=== PATIENT | female | born 1965 | race Caucasian/White ===

== ENCOUNTER 2018-05-10 19:14 | Inpatient (IN) | payer MEDICARE ==
--- NOTE | 2018-05-10 21:01 | RAD ---
PORTABLE AP CHEST X-RAY 05/10/18 HISTORY: Chest pain. Right lower extremity swelling and redness that started one week ago. COMPARISON: 11/08/14. FINDINGS: The tunneled right internal jugular vein hemodialysis catheter as well as the left internal jugular v ein central venous catheter has been removed. The cardiac silhouette is magnified by projection. Pulm onary vasculature is within normal limits. The lungs are clear aside from minimal atelectasis at each lung base. There has been no other interval change from prior exam. IMPRESSION: No acute cardiopulmonary process. POS: [facility]
[2018-05-10 21:07] LABS: ALT (SGPT) 7 U/L (8-55); AST (SGOT) 10 U/L (5-34); Albumin 3.5 g/dL (3.5-5.0); Alkaline Phosphatase 115 U/L (40-150); Anion Gap 22 mmol/L (10-20); BUN (Urea Nitrogen) 73 mg/dL (9.8-20.1); Bilirubin, Total 0.4 mg/dL (0.2-1.2); Calc. Creatinine Clearance 0 mL/min (70-130); Calcium 9.2 mg/dL (7.8-10.44); Carbon Dioxide 24 mmol/L (22-29); Chloride 93 mmol/L (98-107); Estimated GFR-MDRD 5; Globulin 3.9 g/dL (2.4-3.5); Glucose 352 mg/dL (70-105); Potassium 3.7 mmol/L (3.5-5.1); Protein, Total 7.4 g/dL (6.0-8.3); Sodium 135 mmol/L (136-145)
[2018-05-10 21:15] LABS: Band 5 % (5-11); Eosinophils 2 % (0-10); Hemoglobin 10.2 g/dL (12.0-16.0); Lymphocytes 30 % (21-51); MDiff Complete? YES; Mean Corpuscular HGB CONC 34.9 g/dL (32.0-36.0); Mean Corpuscular Hemoglobin 32.7 pg (27.0-31.0); Mean Corpuscular Volume 93.5 fL (78.0-98.0); Mean Platelet Volume 6.5 fL (7.4-10.4); Metamyelocyte 1 % (0-0); Monocytes 3 % (0-10); Neutrophil 59 % (42-75); PLT Morphology Comment Appears Adequate; Platelet Count 338 thou/uL (130-400); RBC Distribution Width 14.4 % (11.5-14.5); Red Blood Cell (RBC) Count 3.14 mill/uL (4.20-5.40); White Blood Cell (WBC) Count 10.9 thou/uL (4.8-10.8)
[2018-05-10 21:32] LABS: Troponin I 3.305 ng/mL (< 0.028)
[2018-05-10] MEDS ORDERED: Piperacillin/Tazobactam 3.375 GM VIAL ONE (22:22)
[2018-05-10] MEDS ORDERED: HYDROcodone/Acetaminophen 5/325 mg Tablet ONE (22:38)
[2018-05-10] MEDS ORDERED: Heparin 25,000 units/D5W 500 ML IV SCH (22:45)
[2018-05-10] MEDS ORDERED: Piperacillin/Tazobactam 3.375 GM in Sodium Chloride 0.9% 100 ML IVPB SCH (22:45)
[2018-05-10] MEDS ORDERED: Heparin 10,000 UNITS/ 10 ML VIAL SLOW IVP SCH (22:45)
[2018-05-10 23:45] LABS: INR-International Normal Ratio 1.1; PTT 34.7 SEC (22.9-36.1); Prothrombin Time 14.2 SEC (12.0-14.7)
[2018-05-11] MEDS ORDERED: traMADol HCl 50 MG TAB PO PRN (00:05)
[2018-05-11] MEDS ORDERED: Zolpidem Tartrate 5 MG TAB PO PRN (00:05)
[2018-05-11] MEDS ORDERED: diphenhydrAMINE 25 MG CAP PO PRN (00:05)
[2018-05-11] MEDS ORDERED: Acetaminophen 325 MG TAB PO PRN (00:12)
[2018-05-11] MEDS ORDERED: Ondansetron HCl/PF 4 MG/2 ML Vial IVP PRN (00:12)
[2018-05-11 01:20] LABS: Troponin I 3.224 ng/mL (< 0.028)
[2018-05-11] MEDS ORDERED: Vancomycin HCl 1.25 GM in Sodium Chloride 0.9% 250 ML 250 ML IVPB PRN (01:57)
[2018-05-11] MEDS ORDERED: Vancomycin HCl 1 GM in Premix Bag 1 BAG IVPB PRN (01:57)
[2018-05-11] MEDS ORDERED: Vancomycin HCl 500 MG in Sodium Chloride 0.9% 100 ML IVPB PRN (02:01)
[2018-05-11] MEDS ORDERED: Vancomycin HCl 750 MG in Sodium Chloride 0.9% 250 ML 250 ML IVPB PRN (02:01)
[2018-05-11] MEDS ORDERED: Vancomycin Sliding Scale 1 EACH FS PRN (02:04)
[2018-05-11] MEDS ORDERED: HOLD VANCOMYCIN FOR LEVEL >20 FS PRN (02:05)
[2018-05-11] MEDS ORDERED: Vancomycin HCl 1.25 GM in Sodium Chloride 0.9% 250 ML 250 ML IVPB SCH (03:00)
[2018-05-11 04:26] LABS: #Eosinphils 0.3 thou/uL (0.0-0.7); #Lymphocytes 2.7 thou/uL (1.20-3.40); #Monocytes 0.5 thou/uL (0.11-0.59); #Neutrophils 7.7 thou/uL (1.40-6.50); %Basophils 0.2 % (0.0-1.0); %Monocytes 4.5 % (0.0-10.0); %Neutrophils 68.3 % (42.0-75.0); Hemoglobin 9.6 g/dL (12.0-16.0); Mean Corpuscular HGB CONC 34.7 g/dL (32.0-36.0); Mean Corpuscular Hemoglobin 32.7 pg (27.0-31.0); Mean Corpuscular Volume 94.2 fL (78.0-98.0); Mean Platelet Volume 5.9 fL (7.4-10.4); Platelet Count 320 thou/uL (130-400); RBC Distribution Width 14.4 % (11.5-14.5); Red Blood Cell (RBC) Count 2.94 mill/uL (4.20-5.40); White Blood Cell (WBC) Count 11.2 thou/uL (4.8-10.8)
[2018-05-11 04:43] LABS: Anion Gap 22 mmol/L (10-20); BUN (Urea Nitrogen) 75 mg/dL (9.8-20.1); Calc. Creatinine Clearance 0 mL/min (70-130); Calcium 9.2 mg/dL (7.8-10.44); Carbon Dioxide 24 mmol/L (22-29); Chloride 97 mmol/L (98-107); Estimated GFR-MDRD 5; Glucose 209 mg/dL (70-105); Potassium 3.6 mmol/L (3.5-5.1); Sodium 139 mmol/L (136-145)
[2018-05-11 04:56] LABS: Troponin I 2.656 ng/mL (< 0.028)
--- NOTE | 2018-05-11 06:17 | CON ---
DATE OF CONSULTATION: 05/10/2018 REASON FOR CONSULTATION: Stage 6 chronic kidney disease and edema and maintenance hemodialysis. HISTORY OF PRESENT ILLNESS: The patient is a 53-year-old female who presented to the hospital with r ight lower extremity swelling, redness. The patient was evaluated for DVT and went to dialysis and w as unable to access the AV fistula. The patient denies any headache, numbness, tingling or weakness. Denies any nausea, vomiting or chest pain. PAST MEDICAL HISTORY: Significant for hypertension, end-stage renal disease, anemia, secondary hyper parathyroidism, history of left below knee amputation, history of AV fistula, history of tunneled hira lysis catheter, history of chronic pain, history of depression. SOCIAL HISTORY: Noncontributory. FAMILY HISTORY: Negative ESRD. HOME MEDICATIONS: List reviewed. HOSPITAL MEDICATIONS: Reviewed. REVIEW OF SYSTEMS: Fifteen point review of systems was performed and negative except positives noted above. GENERAL: Weakness- HEAD: Headache- NECK: No swelling or lumps. NOSE: No epistaxis or discharge. EYES: No diplopia or pain. RESPIRATORY: Dyspnea- CARDIOVASCULAR: Chest pain- GASTROINTESTINAL: Nausea- /BLOCKER METAL BASE: Hematuria- MUSCULOSKELETAL: No joint pain. NEUROPSYCHIATIC SYSTEMS: No suicidal ideation. No ideation. SKIN: Denies any rash or ulcer. CONSTITUTIONAL: No fever or chills. PHYSICAL EXAMINATION: GENERAL: Patient is awake, alert. VITAL SIGNS: Pulse 70, breathing at 16, blood pressure was 130/70. OBJECTIVE: See above. Awake, alert, in no acute distress. GENERAL APPEARANCE AND MENTAL STATUS: Fair. HEAD/NECK: Normocephalic. Atraumatic. EYES: EOMI. No deformity. EARS: Clear. No ulcers. NOSE: Intact. No lesions. MOUTH: Clear. No discharge. THROAT: Clear. No exudate. LUNGS: Clear. No crackles. CARDIAC: S1, S2. No rub. ABDOMEN: Benign. BS+. GENITALIA/RECTUM: Tellez absent. BACK/EXTREMITIES: Lower extremities have edema and redness. NEUROLOGICAL: Alert and motor intact. SKIN: Rash- Bruise- LYMPHATICS: Edema- Ulcer- LABORATORY: Potassium 3.7. ASSESSMENT AND RECOMMENDATIONS: 1. Stage 6 chronic kidney disease. No indication for dialysis. We will recommend a fistulogram and a catheter if needed. 2. Anemia, stable. 3. Medications based on glomerular filtration rate are appropriate. 4. Cellulitis management per primary team.
--- NOTE | 2018-05-11 07:59 | HP ---
CODE STATUS: FULL CODE. PRIMARY CARE PHYSICIAN: Dr. Krystal Rider. TIME OF EVALUATION: 10:45 p.m. CHIEF COMPLAINT: Right leg pain, swelling, and AV fistula, now working for dialysis. HISTORY OF PRESENT ILLNESS: This is a 53-year-old female patient. Patient has past medical history of type 1 diabetes, end-stage renal disease on hemodialysis. Follow up with Dr. Moctezuma, the patient ca me to the hospital after having right leg swelling. These symptoms had started for the past week, th ey started insidiously and has been getting gradually worse. The patient now has associated pain jayme t is severe in the right lower extremity with significant increase in size, associated with redness, inability to bear weight in that extremity due to pain. No clear triggers, no alleviating factors. As known, the patient has a frontal chronic ulcer that is being followed by Podiatry; however, this a ciara looks clean and not overly infected. Patient also had an obstruction of the right AV fistula, th erefore she has been unable to get hemodialysis, Dr. Moctezuma has been consulted and he has recommended t he patient to come to the hospital. Patient will have preview of the AV fistula in the morning and p ossible Perm-A-Cath placement even able to use AV fistula. As of now, patient also was found to have a troponin of 3.3, that was associated with an episode of s hortness of breath earlier in the morning, that stopped by itself. No chest pain reported. Patient also stated that she had a cardiac catheterization 3 years ago, and she was told that she had coronar y lesions that have good collateral by that time. REVIEW OF SYSTEMS: Constitutional: Patient has no fever, no chills, generalized weakness. Respirat ory: No cough, sputum production, shortness of breath. Cardiovascular: No chest pain, palpitations . She reported an episode of shortness of breath earlier in the morning. Gastrointestinal: No naus ea, vomiting, diarrhea, or abdominal pain. MANAGER CARDIOVASCULAR: No dizziness, headache, or feeling lightheaded. Ge nitourinary: No burning on urination. Extremities: The patient has left [id number] amputation, also right lower extremity redness, with tenderness, swelling, decreased range of motion and inabili ty to bear weight due to pain. All other systems were reviewed and negative except for the findings mentioned above. PAST MEDICAL HISTORY: The patient had history of diabetes type 1, hyperlipidemia, hypertension, end- stage renal disease on hemodialysis. PAST SURGICAL HISTORY: Eye surgery, left hand surgery, amputation of [id number] left lower extre mity ____ surgery. PSYCHIATRIC HISTORY: No previous psychiatric history. SOCIAL HISTORY: No smoking history. No alcohol, no drugs. FAMILY HISTORY: Cancer in both paternal and maternal history. DRUG ALLERGIES: GABAPENTIN. REPORTED MEDICATIONS: Metoprolol, omeprazole, simvastatin, amitriptyline, torsemide, Novolin R, and NovoLog. PHYSICAL EXAMINATION: VITAL SIGNS: On presentation, blood pressure 143/77 with heart rate 108, respiratory rate was 20, te mperature 99.6, oxygen saturation 96% on room air. GENERAL APPEARANCE: Patient is alert, oriented, in mild distress due to pain. HEENT: Eyes: Normal conjunctivae, moist oral mucosa. Anicteric. NECK: No JVD. RESPIRATORY: Bilateral air entry. No rales, no wheezing. Symmetric expansion. CARDIOVASCULAR: Normal rate, regular rhythm, occasional tachycardic. No murmur, no gallop. Right l ower extremity edema. ABDOMEN: Soft, normal bowel sounds. MUSCULOSKELETAL: Baseline range of motion and strength. No tenderness. SKIN: Warm and intact. No pallor, no rash except for right lower extremity that showing swelling, r edness, tenderness, and decreased range of motion due to pain. NEUROLOGIC: Baseline sensory. No evidence of any focal weakness. Baseline speech. Cranial nerve s eems to be intact. PSYCHIATRIC: The patient is in a good mood. No anxiety, oriented, optimal judgment. LABORATORY DATA: White count 10.9, hemoglobin 10.2, platelet count 338. PT 14.2, INR 1.1, PTT 34.7. Chemistry: Sodium 135, potassium 3.7, chloride 93, carbon dioxide 24, anion gap 22, BUN 73, creati nine 7.8, GFR 5, glucose 352. Lactic acid 1.6, calcium 9.2, total bilirubin 0.4, AST 10, ALT 7, elif line phosphatase 115, troponin 3.3. Repeat troponin 3.2. Beta natriuretic peptide 189. Serum total protein 7.4, albumin 3.5, globulin 3.9. IMAGING: Chest x-ray was done and reviewed. The patient has no acute cardiopulmonary process. The EKG was discussed with performing physician from ER and reviewed. Patient had sinus tachycardia at t he rate of 104. No evidence of any acute ischemic event, occasional PVCs, Q-wave in inferior anterio r leads. ASSESSMENT AND PLAN: The patient will be placed in the hospital for the following medical problems. 1. Right lower extremity cellulitis, patient has redness, increased in size, swelling. Patient has been started on antibiotics, reconcile as per culture results. Possible earlier stage of sepsis. Tavo kessler has respiratory rate of 20, heart rate 108. Possible sources right lower extremity cellulitis, treatment as above. We are limiting with fluids, as patient is a dialysis patient. 2. Uncontrolled hypertension presenting with systolic blood pressure 143. We will reconcile home me ds, we will adjust treatment as needed. Patient will get hemodialysis likely in the morning. 3. Non-ST elevation myocardial infarction with troponin 3.3, although she is a renal patient, tropon in is in the high side. We will place the patient on heparin drip, we will consult Cardiology in the morning. With further recommendations, patient stated that she got cardiac catheterization 3 years ago and she was told that she had lesion with collateral circulation, so no treatment was done at jayme t time. We will follow Cardiology recommendations. Reconcile home medications. 4. Uncontrolled diabetes with blood sugar 352 on presentation. Hyperglycemia, we will reconcile annelise e medications, ____ for optimal control. 5. Hyponatremia. Sodium 135, this is mild, we will monitor, we will trend levels, we will adjust tr eatment as needed. 6. End-stage renal disease with AV graft obstruction, Dr. Moctezuma is on the case, we will follow recomm endations. Patient will need hemodialysis access. 7. Deep venous thrombosis prophylaxis. We will start her on heparin drip.
[2018-05-11] MEDS ORDERED: Sodium Chloride 0.9% 10 ML ONE (08:41)
[2018-05-11] MEDS ORDERED: Lisinopril 5 MG TAB PO SCH (09:00)
[2018-05-11] MEDS ORDERED: Carvedilol 25 MG TAB PO SCH (09:00)
[2018-05-11] MEDS ORDERED: Amlodipine 10 MG TAB PO SCH (09:00)
[2018-05-11] MEDS ORDERED: Piperacillin/Tazobactam 2.25 GM in Sodium Chloride 0.9% 100 ML IVPB SCH (09:00)
[2018-05-11] MEDS ORDERED: Enoxaparin Sodium 40 MG/0.4 ML SYRINGE SC SCH (09:00)
[2018-05-11] MEDS: Aspirin 325 mg Enteric Coated Tablet PO SCH (09:05)
--- NOTE | 2018-05-11 10:32 | PRG ---
DATE OF SERVICE: 05/11/2018 SUBJECTIVE: This is a 53-year-old female being seen for end-stage renal disease. The patient denies any nausea, vomiting or chest pain. Leg swelling is improving. PHYSICAL EXAMINATION: GENERAL: Patient is awake, alert. VITAL SIGNS: Afebrile, pulse 75, breathing 16, blood pressure 124/64. OBJECTIVE: See above. Awake, alert, in no acute distress. GENERAL APPEARANCE AND MENTAL STATUS: Fair. HEAD/NECK: Normocephalic. Atraumatic. EYES: EOMI. No deformity. EARS: Clear. No ulcers. NOSE: Intact. No lesions. MOUTH: Clear. No discharge. THROAT: Clear. No exudate. LUNGS: Clear. No crackles. CARDIAC: S1, S2. No rub. ABDOMEN: Benign. BS+. GENITALIA/RECTUM: Tellez absent. BACK/EXTREMITIES: Edema 0+ Ulcer- NEUROLOGICAL: Alert and motor intact. SKIN: Rash- Bruise- LYMPHATICS: Edema- Ulcer- LABORATORY: Hemoglobin 9.6, potassium 3.6. ASSESSMENT AND RECOMMENDATIONS: 1. Stage 6 chronic kidney disease. We will plan dialysis after new access. 2. Anemia, stable. 3. Hyperkalemia, stable. 4. Failed access. The patient will be seen by Dr. Briscoe.
[2018-05-11] MEDS ORDERED: Acetaminophen 500 MG TAB PO PRN (11:18)
--- NOTE | 2018-05-11 11:42 | CON ---
DATE OF CONSULTATION: 05/11/2018 HISTORY OF PRESENT ILLNESS: Zakia Hedrick is a 53-year-old female, diabetic, morbidly obese, 5 feet tall, 190 pounds, 37 BMI, insulin-dependent diabetic at home on insulin, metoprolol 50 mg a day, omeprazole 40 mg a day, Requip 2 mg b.i.d., amitriptyline 20 mg at bedtime, Zocor 10 mg at bedtime, Benadryl p.r.n., reports to the hospital and with a history of 11/08/2014 me placing a right IJ cuffe d tunnel dialysis catheter to initiate dialysis and subsequent 11/13/2014 placement of a right arm fi stula, perforating branch antecubital vein to proximal radial artery outflow through primary basilic vein as the cephalic veins seemed to be smaller and seemed to occlude approximately 8 centimeters pro ximally in the upper arm. She subsequently returned to the operating room on 12/11/2014 for a basili c vein transposition fistula. Her cephalic was inadequate with runoff via collaterals and her basili c vein was transposed using the stump off the cephalic vein to form a fistula. She has been dialyzin g utilizing that although she reports having had about 15 to 20 interventions often at [facility] and [facility], other times more recently 2-3 days ago in [place] [employer] [facility] the [facility]. I did call the [facility] and talked to staff there who informed me that they performed an interven tion with a TWISTING [employer]PARTMENT END FINDER of the mid basilic vein transposition fistula upper arm where she had a stenosis of t he stent and had arterial inflow stenosis and they dilated these and removed clot and she had good re sults; however, it was clotted when she reported for dialysis. The patient subsequently developed sw elling in her ankle. She has a contralateral below knee amputation. She presented to [place] and a venous ultrasound was negative for DVT. She went home and was told that although she had swelling, t here were no blood clots. She does have chronic venous insufficiency, had swelling, presented for fu rther evaluation. She denied having any chest pain or pressure. The fistula was thrombosed. Incide ntally, even though the patient was asymptomatic from a cardiac standpoint without chest pain, withou t chest pressure, without dyspnea a troponin was checked and was 3.3. The patient reported to the in ternist that she had a cardiac catheterization 3 years ago, but she informs me that she underwent a t ransplant evaluation at [facility] 2 to 2-1/2 years ago, had a cardiac stress test that was no rmal and did not have a catheterization. She told me that she was told she may have had a past cardi ac event, but she was asymptomatic and unaware of any past cardiac problems. SOCIAL HISTORY: The patient lives alone, has transportation problems. PAST MEDICAL HISTORY: Diabetes mellitus type 2, obesity, metabolic syndrome, hyperlipidemia, hyperte nsion, end-stage renal disease on hemodialysis. PAST SURGICAL HISTORY: Eye surgery, left hand surgery, below the knee amputation left leg, right upp er arm fistula with a month later transposition fistula formed, hemodialysis catheter was placed. Mu ltiple interventions performed. The patient was referred to [facility] from the dialysis unit where she had a peritoneal dialysis cathete r placed that did not work. They did some kind of open revision and still it would not work and then she had it removed. She does not recall whether she had a laparoscopy. She does have a scar in her midline umbilical area indicative of expiration for placement of her PD catheter. I do not see any laparoscopic scars. TOBACCO: None. ALCOHOL: None. MEDICATIONS: As listed above. ALLERGIES: GABAPENTIN. The patient dialyzes Wednesday, Wednesday, and Wednesday at [facility] in [place]. She is followed by Dr. Moctezuma. PHYSICAL EXAMINATION: VITAL SIGNS: Height 5 foot tall, 190 pounds, 37 BMI, 99.5, 100, 124/64. LUNGS: Clear to auscultation, no wheezing. CARDIAC: Regular rate and rhythm, no murmur or gallop, no chest pain. ABDOMEN: Obese, soft, nontender. EXTREMITIES: [id number] amputation left. Chronic venous stasis right, mild cellulitis right butch t and ankle, chronic venous stasis changes with hyperpigmentation and stasis dermatitis. LABORATORY: White count 11, hemoglobin 9.6, sodium 139, potassium 3.6, BUN 75, creatinine 7.82. GFR 5 on admission, her troponin was 3.2, this morning 2.6. ASSESSMENT AND PLAN: 1. End-stage renal disease with nonfunctional fistula right arm with multiple interventions and sten ts. I do not think this fistula is salvageable. She has IVs in her left distal forearm and mid fore arm. I would recommend to stop the heparin. The patient does not need heparin as far as her clots in her right arm fistula. She does not need heparin for chronic venous stasis disease, right leg. I have spoken with Dr. Vizcarra and he believes that her troponin elevation is due to her renal disease and he will evaluate her. At this point, we will place hemodialysis catheter and a central line. We will removed the left arm IVs. We will avoid IV access, blood draws in the left arm. We will obtai n ultrasound vein mapping of the left arm for use at a later date. We will plan next week inpatient and outpatient in the next week or two laparoscopic peritoneal dialysis catheter placement, possible left arm fistula or graft pending ability to place a peritoneal dialysis catheter. We will plan this possibly as an outpatient or she may need overnight hospitalization due to transportation problems. 2. Elevated troponins. History of negative cardiac stress test, possible catheterization 2-3 years ago. It is hard from her history to know what was done at [facility]. Dr. Vizcarra will see he r and address her cardiac status considering her elevated troponins, lack of dialysis in the last few days. I have also asked him to assess her for safe general anesthetic next week for a laparoscopic peritoneal dialysis catheter placement, left arm fistula. 3. Diabetes mellitus. 4. Hypertension. 5. Chronic venous stasis with mild cellulitis right leg which could be treated with oral antibiotics . 6. Clot in the right arm fistula. She does not need heparin for this. 7. End-stage renal disease on maintenance dialysis Wednesday, Wednesday, and Wednesday at [facility]. She is followed by Dr. Moctezuma.
[2018-05-11] MEDS ORDERED: Bupivacaine HCl 0.5%/Epinephrine 1:200,000/PF 30 ml Vial ONE (12:40)
[2018-05-11] MEDS ORDERED: Sodium Chloride 0.9% 30 ML ONE (12:40)
[2018-05-11] MEDS ORDERED: Heparin 5,000 UNITS/ML VIAL ONE (12:40)
[2018-05-11] MEDS ORDERED: Protamine Sulfate 50 MG/5 ML VIAL ONE (12:40)
[2018-05-11] MEDS ORDERED: Heparin 10,000 UNITS/1 ML VIAL ONE ×2 (12:40→13:42)
[2018-05-11] MEDS ORDERED: Lidocaine 2% 10 ML INJ ONE (12:40)
[2018-05-11] MEDS ORDERED: Midazolam HCl 2 mg/2 ml Vial ONE (12:52)
[2018-05-11] MEDS ORDERED: Fentanyl 100 MCG/2 ML VIAL ONE (12:52)
[2018-05-11] MEDS ORDERED: ISOVUE-370 76%-LOCM 1 ML ONE (12:54)
[2018-05-11] MEDS ORDERED: Heparin 10,000 UNITS/ 10 ML VIAL ONE (13:45)
[2018-05-11] MEDS ORDERED: PROPOFOL 200 MG/20 ML VIAL ONE (13:45)
[2018-05-11] MEDS ORDERED: Lidocaine 1% PF 5 ML VIAL ONE (13:45)
[2018-05-11] MEDS ORDERED: PHENYLEPHRINE-NS 100 MCG/ML 10 ML SYRINGE ONE (13:45)
--- NOTE | 2018-05-11 14:33 | RAD ---
SINGLE VIEW CHEST: Date: 05/11/18 COMPARISON: 05/10/18. HISTORY: Central line placement. FINDINGS: Single view of the chest shows normal sized cardiomediastinal silhouette. There is a left IJ dialysis catheter is seen with its tip at the superior vena cava. A right subclavian central venous catheter is seen with its tip at the superior vena cava. There is no evidence of consolidation, mass, or pleur al effusion. No pneumothorax is seen. IMPRESSION: Catheter placement as above without evidence of complication. POS: [facility]
--- NOTE | 2018-05-11 16:19 | OP ---
DATE OF OPERATION: 05/11/2018 PREOPERATIVE DIAGNOSES: Exhausted right upper extremity burns paiute vein fistula access with thrombosed r ight basilic vein transposition fistula, status post multiple interventions and stent placement. Pre viously failed peritoneal dialysis catheter placed in Restorationism in open fashion. POSTOPERATIVE DIAGNOSES: Exhausted right upper extremity burns paiute vein fistula access with thrombosed right basilic vein transposition fistula, status post multiple interventions and stent placement prev iously failed peritoneal dialysis catheter placed in Restorationism in open fashion, occluded right internal jugular vein not visualized on ultrasound from previous hemodialysis catheter. PROCEDURES PERFORMED: Right subclavian vein triple-lumen catheter, left internal jugular cuffed tunn el dialysis catheter, ultrasound fluoroscopy used. SURGEON: John Briscoe M.D. ANESTHESIA: TIVA, Local 0.5% Marcaine with epinephrine 30 mL mixed with Xylocaine 10 mL. PROCEDURE IN DETAIL: Patient taken to the operating room where under intravenous sedation, neck and chest prepared with ChloraPrep, draped in routine fashion. Local anesthetic infiltrated into the ski n and subcutaneous tissue about the operative site. 0.5% Marcaine with epinephrine, 30 mL, mixed wit h 2% Xylocaine mixture used. Ultrasound used noting absence of visualized right internal jugular vei n, probably secondary to previous hemodialysis catheter access. Left internal jugular vein cannulate d with trocar catheter and J wire threaded, trocar catheter removed. Right subclavian vein cannulate d with trocar catheters and central and J-wire threaded. Trocar catheter removed. On the left side, a stab incision made over the left chest. Using the tunneling device, precurved angiodynamics, cuff ed tunnel hemodialysis catheter tunneled between the two incisions, placing the fabric cuff beneath t he skin exit site. Catheter secured with 2 interrupted sutures of 3-0 nylon. Biopatch sterile dress ing applied. Smaller medium size dilators placed over the J-wire into the internal jugular vein left and removed. Dilator and pull-away sheath placed over the J-wire into the superior vena cava under fluoroscopic visualization and dilator removed. Catheter placed through a pull-away sheath. Pull-aw ay sheath removed. Fluoroscopic catheter noted to be in good position. Platysma approximated with 4 -0 Monocryl, skin with subdermal 4-0 Monocryl. DermaGlue and sterile dressings applied. Seldinger technique used to place right subclavian vein central line, securing it to her sutures of 3 -0 nylon. Biopatch sterile dressing applied. A central line aspirated blood, flushed with saline so lution and heparinized saline solution with 100 units heparin per mL A hemodialysis catheter aspirat ed of blood, flushed with saline solution and heparinized saline solution 1000 units heparin per mL i ndicated volume the port. Patient tolerated the procedure well.
[2018-05-11] MEDS: Sevelamer Carbonate 800 MG TAB PO SCH ×2 (17:10→17:20)
--- NOTE | 2018-05-11 19:10 | CON ---
DATE OF CONSULTATION: 05/11/2018 REASON FOR CONSULTATION: Non-STEMI. HISTORY OF PRESENT ILLNESS: Mrs. Hedrick is a very pleasant 53-year-old white female who comes to the hospital for leg pain. She had been noticing increased swelling of her right leg with increased pain as well as inability to bear weight on it due to the pain. She has an ulcer on the front part o f the foot that is being treated by Podiatry, but it does not really look infected, it is on the back of the thigh, close to the knee where she feels a small mass that is painful, a little erythematous, so she decided to come in for this. She was diagnosed with cellulitis and started on antibiotics. She also was found to have an obstruction of her right AV fistula and has been unable to get hemodial ysis for some days now. During her admission, troponins were drawn and they were elevated, so Cardio logy being consulted for this. On my evaluation, Ms. Hedrick denies any chest pain, no tightness o r pressure, not really short of breath. She does have a left nzujn-ong-avma amputation. She has had a heart catheterization from her report about 3 years ago when she was being evaluated for transplan t. She was told that there was an area where she probably had a heart attack in the past, but it was occluded, but the area was being filled from small collaterals made by the body. She is unable to g krystle me any more detail other than that. PAST MEDICAL HISTORY: 1. Type 1 diabetes. 2. Hyperlipidemia. 3. Hypertension. 4. End-stage renal disease, on hemodialysis. PAST SURGICAL HISTORY: 1. Eye surgery. 2. Left hand surgery. 3. [id number]-atf-uoxf amputation of the left leg. 4. Tunneled catheter placed today for dialysis. SOCIAL HISTORY: No alcohol, tobacco or drugs. FAMILY HISTORY: Noncontributory. OUTPATIENT MEDICATIONS: 1. Novolin N. 2. Torsemide 10 mg a day. 3. Metoprolol succinate 50 mg daily. 4. Omeprazole 40 mg a day. 5. Requip 2 mg b.i.d. 6. Amitriptyline 200 mg at bedtime. 7. Zocor 10 mg at bedtime. 8. Benadryl 25 mg p.r.n. ALLERGIES: GABAPENTIN, GENTAMICIN, and PLASTIC TAPE. REVIEW OF SYSTEMS: A 12-point review of systems was done and is all negative unless stated in histor y of present illness. PHYSICAL EXAMINATION: VITAL SIGNS: Temperature 99.5, pulse 100, respiration rate 16, satting 100% on room air, blood press ure 124/64. GENERAL: Awake, alert, oriented x3, in no distress. HEENT: Normocephalic, atraumatic. NECK: Supple. LUNGS: Clear. CARDIOVASCULAR: S1, S2, no S3, S4. There is a grade 3/6 systolic murmur in right upper sternal bord er. ABDOMEN: Soft, positive bowel sounds. EXTREMITIES: Edema on the right lower extremity. There is a small palpable mass right above the lef t knee and the thigh, which is painful to palpation, but minimally erythematous. The leg does not se em erythematous enough for me to think she has cellulitis. Distal pulses are reduced. SKIN: Warm and dry. LABORATORY WORK: Reviewed. White count of 10.2, up to 11.2; hemoglobin 10.2; platelet count 338. C oags were reviewed. Chemistries were reviewed. Troponin initially was 3.3, second draw was 3.2, thi rd draw was 2.6. Creatinine is 7.8, GFR of less than 5. BNP was 589. EKG was reviewed, no ischemic changes. Chest x-ray was reviewed. ASSESSMENT AND PLAN: 1. Non-ST elevation myocardial infarction. 2. Most likely peripheral vascular disease. 3. Possible right lower extremity cellulitis, I am more concerned about this being an ischemic event to her leg. No DVT on recent ultrasound of the lower extremity, this could be an arterial issue. PLAN: 1. Plan on getting a CT of the leg to make sure that this is not an arterial issue. 2. I do think her elevated troponins are related to an acute coronary event. She most likely has so me level of coronary artery disease per report from recent catheterization 3 years ago, but she is no t having any symptoms. We will get an echocardiogram. I do not think she needs anticoagulation at t his time and her clinical scenario is not that of an NM. More than likely, if this is elevated tropo isaiah is related to just her end-stage renal disease and possible infection. 3. She is scheduled to have a fistula revision next week, so she will need some ischemic evaluation as well. We will plan on doing a stress test in the morning. Thank you for letting us participate in the care of your patient. We will follow.
[2018-05-11] MEDS ORDERED: hydrALAZINE 20 MG/ML VIAL SLOW IVP PRN (19:20)
[2018-05-11] MEDS ORDERED: Amitriptyline HCl 25 MG TAB PO SCH (21:00)
[2018-05-11] MEDS ORDERED: Carvedilol 6.25 MG TAB PO SCH (21:00)
--- NOTE | 2018-05-11 21:35 | PDOC.PN ---
- Subjective Encounter Start Date: 05/11/18 Encounter Start Time: 18:00 Patient seen and examined for NSTEMI. No new complaints. No CP/SOB. No overnight events - Objective MAR Reviewed: Yes Vital Signs & Weight: Vital Signs (12 hours) Temp Pulse Resp BP 05/11/18 16:00 98 F 82 88/58 L 05/11/18 12:00 98.6 F 92 16 116/50 L Weight Weight 190 lb 11.2 oz I&O: 05/10/18 05/11/18 05/12/18 06:59 06:59 06:59 Intake Total 300 409 Balance 300 409 Result Diagrams: 05/12/18 05:10 05/12/18 05:10 Additional Labs: Accuchecks 05/11/18 05/11/18 21:21 19:12 POC Glucose 248 H 215 H Radiology Reviewed by me: Yes (No infiltrate) EKG Reviewed by me: Yes (Tele SR) Phys Exam - Physical Examination Constitutional: NAD Neck: no JVD Respiratory: no wheezing, no rales, no rhonchi Symmetrical, No accessory muscle use Cardiovascular: RRR, no rub No heaves/pulsations Gastrointestinal: soft, non-tender, positive bowel sounds Musculoskeletal: edema present RLE MELO wraps Neurological: non-focal, moves all 4 limbs Psychiatric: normal affect, A&O x 3 Dx/Plan - Plan continue antibiotics, DVT proph w/SCDs IMPRESSION: 1. NSTEMI 2. RLE Cellulitis ? ischemia 3. ESRD on dialysis with dialysis malfunction 4. DM2 5. HTN 6. RLS/ Chronic Anemia due to renal disease / Obesity 37.6 / GERD PLAN: Cont ASA Heparin drip dced per Cardiology Cont low dose Metoprolol/Lisinopril Start 25 units NPH BID with sliding scale Cont PPI Await Echo Stress test in AM per Cardio New dialysis catheter placed New central line placed for blood draws AM labs Review of Systems - Review of Systems Respiratory: negative: Cough, Dry, Shortness of Breath, Hemoptysis, SOB with Excertion, Pleuritic Pain, Sputum, Wheezing Cardiovascular: negative: chest pain, palpitations, orthopnea, paroxysmal nocturnal dyspnea, edema, light headedness, other - Medications/Allergies Allergies/Adverse Reactions: Allergies Allergy/AdvReac Type Severity Reaction Status Date / Time gabapentin AdvReac Unknown Verified 02/06/15 11:25 gentamicin [Gentamicin] AdvReac Unknown Verified 02/06/15 11:25 plastic tape Allergy Uncoded 12/10/14 15:18 Medications: Current Medications Acetaminophen (Tylenol) 1,000 mg PO Q6H PRN PRN Reason: Moderate to Severe Pain (6-10) Hydrocodone Bitart/Acetaminophen ([place] 5/325) 1 tab PO Q6H PRN PRN Reason: Moderate Pain (4-6) Amitriptyline HCl (Elavil) 20 mg PO HS [facility] Aspirin (Ecotrin) 325 mg PO DAILY [facility] Last Admin: 05/11/18 09:05 Dose: 325 mg Carvedilol (Coreg) 6.25 mg PO BID [facility] Diphenhydramine HCl (Benadryl) 25 mg PO Q6H PRN PRN Reason: Itching Hydralazine HCl (Apresoline) 10 mg SLOW IVP Q4H PRN PRN Reason: SBP Greater Than 180 Vancomycin HCl 1.25 gm/ Sodium (Chloride) 250 mls @ 166.667 mls/hr IVPB .AT DIALYSIS PRN PRN Reason: IF VANC LEVEL <= 5.0 Vancomycin HCl 1 gm/ Device 200 mls @ 200 mls/hr IVPB .AT DIALYSIS PRN PRN Reason: IF VANC LEVEL >5 AND <=10 Vancomycin HCl 750 mg/ Sodium (Chloride) 250 mls @ 250 mls/hr IVPB .AT DIALYSIS PRN PRN Reason: IF VANC LEVEL >10 AND <= 15 Vancomycin HCl 500 mg/ Sodium (Chloride) 100 mls @ 100 mls/hr IVPB .AT DIALYSIS PRN PRN Reason: IF VANC LEVEL >15 AND <=20 Insulin Human NPH (Humulin N) 25 unit SC BID [facility] Lisinopril (Zestril) 5 mg PO DAILY [facility] Miscellaneous Medication (Vancomycin Sliding Scale) 0 each FS PRN PRN PRN Reason: VANC SLIDING SCALE Miscellaneous Medication (Pharmacy To Dose) 1 each IVPB ONE PRN PRN Reason: Pharmacy to dose Stop: 06/10/18 18:21 Hold Vancomycin For (Level >20) 0 each FS .AT DIALYSIS PRN PRN Reason: HOLD VANCOMYCIN IF LEVEL >20 Ondansetron HCl (Zofran) 4 mg IVP Q6H PRN PRN Reason: Nausea/Vomiting Pantoprazole Sodium (Protonix) 40 mg PO DAILY [facility] Last Admin: 05/11/18 09:05 Dose: 40 mg Pantoprazole Sodium (Protonix) 40 mg PO DAILY [facility] Pneumococcal 13-Valent Conj Vacc (Prevnar) 0.5 ml IM .ONCE ONE Stop: 05/12/18 09:01 Ropinirole HCl (Requip) 0.5 mg PO BID [facility] Sevelamer Carbonate (Renvela) 800 mg PO TID-WM [facility] Last Admin: 05/11/18 17:20 Dose: 800 mg Simvastatin (Zocor) 20 mg PO HS [facility] Tramadol HCl (Ultram) 50 mg PO BIDPRN PRN PRN Reason: Pain Zolpidem Tartrate (Ambien) 10 mg PO HSPRN PRN PRN Reason: Insomnia
[2018-05-11] MEDS: Simvastatin 20 MG TAB PO SCH (22:24)
[2018-05-11] MEDS: rOPINIRole HCl 0.5 MG TAB PO SCH (22:24)
[2018-05-11] MEDS: Amitriptyline HCl 10 MG TAB PO SCH (22:24)
[2018-05-11] MEDS: HYDROcodone/Acetaminophen 5/325 mg Tablet PO PRN (22:25)
[2018-05-11] MEDS: NPH, Human Insulin Isophane 300 UNIT/3 ML VIAL SC SCH (22:27)
--- NOTE | 2018-05-11 22:53 | CT ---
CT OF THE RIGHT LEG WITH CONTRAST: 05/11/18 COMPARISON: None. HISTORY: Evaluate for infection. Patient has vascular disease and right leg pain. Right thigh infection. TECHNIQUE: Multiple contiguous axial images were obtained in a CT of the right leg with contrast. Sagittal and c oronal reformats were performed. FINDINGS: There is diffuse subcutaneous edema throughout the right leg. This edema is in the superficial soft t issues. There is relative sparring of the knee compartments. No foci of air are seen within the soft tissues of the right leg. Dense vascular calcifications are seen in the superficial femoral artery an d popliteal artery. There is dense atherosclerotic disease in all three vessels distal to the knee. N o focal fluid collection is seen in the right leg. There are multiple varicosities in the subcutaneou s fat. No osseous abnormality is seen. IMPRESSION: Diffuse edema in the subcutaneous tissues without focal fluid collection. This could represent depend ent edema or diffuse cellulitis. POS: [facility]
[2018-05-12 05:31] LABS: Hemoglobin 8.4 g/dL (12.0-16.0); Platelet Count 297 thou/uL (130-400)
[2018-05-12 05:56] LABS: Anion Gap 20 mmol/L (10-20); BUN (Urea Nitrogen) 85 mg/dL (9.8-20.1); Calc. Creatinine Clearance 11 mL/min (70-130); Calcium 8.4 mg/dL (7.8-10.44); Carbon Dioxide 23 mmol/L (22-29); Chloride 98 mmol/L (98-107); Estimated GFR-MDRD 5; Glucose 121 mg/dL (70-105); Potassium 4.1 mmol/L (3.5-5.1); Sodium 137 mmol/L (136-145)
[2018-05-12] MEDS ORDERED: Nitroglycerin 0.4 MG TAB (25 Tab Bottle) SL PRN (06:57)
--- NOTE | 2018-05-12 08:38 | ULT ---
BILATERAL UPPER EXTREMITY VENOUS ULTRASOUND VEIN MAPPING EXAM WITH LEE SCALE AND DOPPLER COLOR FLOW AND SPECTRAL ANALYSIS: CLINICAL HISTORY: End stage renal disease, dialysis access. FINDINGS: LEFT UPPER EXTREMITY: Brachial Artery 4.5 mm Radial Artery 1.9 mm Ulnar Artery 1.8 mm Cephalic: Proximal humerus 3.4 mm Mid humerus 3.8 mm Distal 4.0 mm Elbow 5.4 mm Proximal forearm 3.4 mm Mid 2.6 mm Distal 1.4 mm Basilic: Proximal humerus 5.4 mm Mid humerus 4.8 mm Distal 4.4 mm Elbow 4.3 mm Proximal forearm 2.6 mm Mid 2.2 mm Distal 1.3 mm Note is made that there is thrombus within the basilic vein in the left upper extremity. RIGHT UPPER EXTREMITY: There is in indwelling nonfunctioning right upper extremity fistula. The venous structures beyond th e nonfunctioning fistula are not documented. Cephalad to the fistula, there is a 2.1 mm cephalic vei n and a 3.4 mm basilic vein documented. IMPRESSION: 1. Left upper extremity vein mapping as above. 2. Nonfunctioning fistula of the right upper extremity. POS: [facility]
--- NOTE | 2018-05-12 08:53 | PRG ---
DATE OF SERVICE: 05/12/2018 SUBJECTIVE: This is a 53-year-old female being seen for end-stage renal disease. Patient denies any nausea, vomiting or chest pain. PHYSICAL EXAMINATION: GENERAL: Patient is awake, alert. VITAL SIGNS: Afebrile, pulse 80, breathing 16, blood pressure 91/51. HEAD/NECK: Normocephalic. Atraumatic. EYES: EOMI. No deformity. EARS: Clear. No ulcers. NOSE: Intact. No lesions. MOUTH: Clear. No discharge. THROAT: Clear. No exudate. LUNGS: Clear. No crackles. CARDIAC: S1, S2. No rub. ABDOMEN: Benign. BS+. GENITALIA/RECTUM: Tellez absent. BACK/EXTREMITIES: Edema 0+ Ulcer- NEUROLOGICAL: Alert and motor intact. SKIN: Rash- Bruise- LYMPHATICS: Edema- Ulcer- ASSESSMENT AND RECOMMENDATIONS: 1. Stage 6 chronic kidney disease, plan hemodialysis. 2. Hypertension, stable. 3. Anemia. Continue Epogen. 4. Hypertension. Hold all blood pressure medications.
[2018-05-12] MEDS ORDERED: Heparin 10,000 UNITS/ 10 ML VIAL ONE (09:00)
[2018-05-12] MEDS ORDERED: Prevnar 13-Val Conj/PF 0.5 ML SYRINGE IM ONE (09:00)
[2018-05-12 09:37] LABS: Vancomycin, Random 21.4 ug/mL (See Comment)
[2018-05-12] MEDS: Sevelamer Carbonate 800 MG TAB PO SCH ×3 (09:37→19:28)
[2018-05-12] MEDS: Lisinopril 5 MG TAB PO SCH (09:38)
[2018-05-12] MEDS: Metoprolol Tartrate 25 MG TAB PO SCH ×2 (09:39→21:31)
[2018-05-12] MEDS: rOPINIRole HCl 0.5 MG TAB PO SCH ×2 (09:40→21:30)
[2018-05-12] MEDS: Aspirin 325 mg Enteric Coated Tablet PO SCH (09:40)
[2018-05-12] MEDS: NPH, Human Insulin Isophane 300 UNIT/3 ML VIAL SC SCH ×2 (11:12→21:35)
--- NOTE | 2018-05-12 12:05 | PDOC.CTH ---
Cardiology Progress Note - Subjective No new issues. No chest pain, tightness, pressure, SOB. - Objective Vital Signs Temp Pulse Resp BP Pulse Ox 05/12/18 09:38 80 05/12/18 08:40 98.0 F 80 16 95 05/12/18 08:28 98.0 F 80 17 91/51 L 95 05/12/18 04:39 88 14 90/51 L 96 Weight 192 lb 4.8 oz 05/11/18 05/12/18 05/13/18 06:59 06:59 06:59 Intake Total 300 709 Balance 300 709 - Physical Examination General/Neuro: alert & oriented x3, NAD Neck: no JVD present Lungs: CTA, unlabored respirations Heart: RRR Abdomen: NT/ND Extremities: + edema B (1+, left BKA) - Telemetry Telemetry Rhythm: NSR - Labs Result Diagrams: 05/12/18 05:10 05/12/18 05:10 Troponin/CKMB CK-MB (CK-2) 7.0 ng/mL (0-6.6) H* 05/10/18 20:46 Troponin I 2.656 ng/mL (< 0.028) H* 05/11/18 04:17 - Assessment/Plan 1. NSTEMI 2. LE cellulits 3. Hypotension, sepsis? 4. ESRD. 5. Possible CAD, asymptomatic currently. PLAN: - Abx per primary team. - Cellulitis improving today. - Will hold off on [facility] until cellulitis fully treated. - She may still have her surgery for peritoneal dialysis next week as she is completely asymptomatic from the cardiac perspective and has a normal LV function.
--- NOTE | 2018-05-12 13:35 | CON ---
DATE OF CONSULTATION: 05/11/2018 REASON FOR CONSULTATION: Possible cellulitis. HISTORY OF PRESENT ILLNESS: A 53-year-old patient who is known to me from prior visits and has a his tory of type 1 diabetes with end-stage renal disease on hemodialysis and progressively worsening pain in the right lower extremity. The patient had previously undergone amputation at the BKA level of t he left lower extremity for an infectious complication. There was progression of the pain associated with redness and inability to bear weight because of pain. She has a chronic ulcer at the bottom of the first MPJ skin sites which is followed by Podiatry. She denies any headaches, no change in visu al symptoms, sore throat, odynophagia, dysphagia. No neck pain or back pain. No dyspnea or chest pa in, no abdominal pain. She has some urinary output, but no genitourinary symptoms. The left BKA kashif mp is not symptomatic at this time. She had no neurological symptoms. PAST MEDICAL HISTORY: Type 1 diabetes with end-stage renal disease on hemodialysis. The patient has required placement of a catheter in the left IJ location because of a lack of function of right uppe r extremity [place] vein fistula access. 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 SOCIAL HISTORY: Never a smoker. FAMILY HISTORY: Noncontributory. REVIEW OF SYSTEMS: She also has pain in the right TMJ location for the past few days. CURRENT MEDICATIONS: The patient is receiving Tylenol, [place], Elavil, Ecotrin, Benadryl, Apresoline, insulin, Zestril, Lopressor, vancomycin, sliding scale, Requip, Zocor, Renvela. FAMILY HISTORY: Noncontributory. PHYSICAL EXAMINATION: VITAL SIGNS: T-max 99.5, blood 91/51, pulse 80, respirations 16, O2 sat 95%. SKIN: Shows area of erythema in the right leg. There is some erythema in the medial aspect of the r ight thigh. There is marked tenderness close to the right popliteal region, but no erythema in that location. There is one area of very small pinhole like type ulceration at the bottom of the right fi rst MPJ skin site. No erythema or significant callus formation is noted around this area. No lympha denopathy. HEENT: Ocular movements conjugate. Pupils are equal and reactive. Oral cavity unremarkable. NECK: Supple. LUNGS: With symmetric clear breath sounds. HEART: S1, S2 with a soft aortic murmur. Regular rate. ABDOMEN: Soft, not distended or tender. No ascites. No bladder distention. EXTREMITIES: I could not feel dorsalis pedis pulses in the right foot. She had quite a bit of tende rness on palpation of the right popliteal region, a little bit of tenderness in the right leg. She w as able to move extremities on command. NEUROLOGIC: Cognitive function appears to be intact. LABORATORY DATA: White cell count is 10.9 and 11.2, hemoglobin 10.2, MCV 94, platelets 338 with a no rmal differential and INR 1.1. Chemistry; sodium 139, creatinine 7.82. CO2 24 and the liver profile which was normal. Troponin 3.305, albumin 3.5, globulin 3.9. Microbiology with negative blood cult ures at 48 hours. RADIOLOGY STUDIES: We have an echocardiogram from 05/11/2018 with EF 50-55, some diastolic dysfuncti on. The valves with mild changes. Chest x-ray from admission with a catheter placement without evid ence of complications, no infiltrate, no pneumothorax. The patient had a lower extremity CT with con trast that showed edema, dense vascular calcifications. ASSESSMENT: 1. End-stage renal disease secondary to type 1 diabetes. 2. Peripheral vascular disease. 3. Cellulitis, right leg with lymphangeitis. 4. Chronic ulcer bottom aspect of the right first MPJ skin site. DISCUSSION: The port of entry for this infection is likely the ulcer in the right foot, peripheral v ascular disease is probably significant. I do not think she has had an arterial duplex exam yet and I would advise that to evaluate vascular supply to the extremities. She is currently on vancomycin a nd I would add Rocephin to improve streptococcal and gram negative jn coverage.
[2018-05-12] MEDS: cefTRIAXone\\ROCEPHIN 1 GM in Sodium Chloride 0.9% 100 ML IVPB SCH (13:54)
[2018-05-12] MEDS ORDERED: Polyethylene Glycol 3350 17 GM Packet PO PRN (14:46)
--- NOTE | 2018-05-12 14:50 | PDOC.PN ---
- Subjective Encounter Start Date: 05/12/18 Encounter Start Time: 10:30 Patient seen and examined for NSTEMI/Cellulitis. No new complaints. No CP/SOB or palpitations. No overnight events - Objective MAR Reviewed: Yes Vital Signs & Weight: Vital Signs (12 hours) Temp Pulse Resp BP Pulse Ox 05/12/18 09:38 80 05/12/18 08:40 98.0 F 80 16 95 05/12/18 08:28 98.0 F 80 17 91/51 L 95 05/12/18 04:39 88 14 90/51 L 96 Weight Weight 192 lb 4.8 oz I&O: 05/11/18 05/12/18 05/13/18 06:59 06:59 06:59 Intake Total 300 709 Balance 300 709 Result Diagrams: 05/12/18 05:10 05/12/18 05:10 Additional Labs: Accuchecks 05/12/18 05/11/18 05/11/18 06:03 21:21 19:12 POC Glucose 155 H 248 H 215 H EKG Reviewed by me: Yes (Tele SR) Phys Exam - Physical Examination Constitutional: NAD Respiratory: no wheezing, no rhonchi Cardiovascular: RRR, no rub Gastrointestinal: soft, non-tender, positive bowel sounds Musculoskeletal: edema present (with RLE tenderness) Neurological: non-focal, moves all 4 limbs Dx/Plan - Plan DVT proph w/heparin IMPRESSION: 1. NSTEMI 2. Sepsis due to RLE Cellulitis 3. ESRD on dialysis with dialysis malfunction 4. DM2 5. HTN 6. RLS/ Chronic Anemia due to renal disease / Obesity 37.6 / GERD / Chronic diastolic heart failure PLAN: Cont ASA with low dose Metoprolol/Lisinopril Cont 25 units NPH BID with moderate sliding scale Echo reviewed Cont current meds as below Cont Vancomycin with dialysis Ceftriaxone added today per ID Pain control Cont wound care Add SQ Heparin for DVT prophylaxis AM labs Cardiac cath after cellulitis Rx per Cardiology Review of Systems - Review of Systems Respiratory: negative: Cough, Dry, Shortness of Breath, Hemoptysis, SOB with Excertion, Pleuritic Pain, Sputum, Wheezing Cardiovascular: negative: chest pain, palpitations, orthopnea, paroxysmal nocturnal dyspnea, edema, light headedness, other - Medications/Allergies Allergies/Adverse Reactions: Allergies Allergy/AdvReac Type Severity Reaction Status Date / Time gabapentin AdvReac Unknown Verified 02/06/15 11:25 gentamicin [Gentamicin] AdvReac Unknown Verified 02/06/15 11:25 plastic tape Allergy Uncoded 12/10/14 15:18 Medications: Current Medications Acetaminophen (Tylenol) 1,000 mg PO Q6H PRN PRN Reason: Moderate to Severe Pain (6-10) Hydrocodone Bitart/Acetaminophen ([place] 5/325) 1 tab PO Q6H PRN PRN Reason: Moderate Pain (4-6) Last Admin: 05/11/18 22:25 Dose: 1 tab Amitriptyline HCl (Elavil) 20 mg PO HS [facility] Last Admin: 05/11/18 22:24 Dose: 20 mg Aspirin (Ecotrin) 325 mg PO DAILY [facility] Last Admin: 05/12/18 09:40 Dose: 325 mg Diphenhydramine HCl (Benadryl) 25 mg PO Q6H PRN PRN Reason: Itching Docusate Sodium (Colace) 100 mg PO BID [facility] Hydralazine HCl (Apresoline) 10 mg SLOW IVP Q4H PRN PRN Reason: SBP Greater Than 180 Vancomycin HCl 1.25 gm/ Sodium (Chloride) 250 mls @ 166.667 mls/hr IVPB .AT DIALYSIS PRN PRN Reason: IF VANC LEVEL <= 5.0 Vancomycin HCl 1 gm/ Device 200 mls @ 200 mls/hr IVPB .AT DIALYSIS PRN PRN Reason: IF VANC LEVEL >5 AND <=10 Vancomycin HCl 750 mg/ Sodium (Chloride) 250 mls @ 250 mls/hr IVPB .AT DIALYSIS PRN PRN Reason: IF VANC LEVEL >10 AND <= 15 Vancomycin HCl 500 mg/ Sodium (Chloride) 100 mls @ 100 mls/hr IVPB .AT DIALYSIS PRN PRN Reason: IF VANC LEVEL >15 AND <=20 Ceftriaxone Sodium 1 gm/ (Sodium Chloride) 100 mls @ 200 mls/hr IVPB Q24HR [facility] Last Admin: 05/12/18 13:54 Dose: 100 mls Insulin Human NPH (Humulin N) 25 unit SC BID [facility] Last Admin: 05/12/18 11:12 Dose: Not Given Lisinopril (Zestril) 5 mg PO DAILY [facility] Last Admin: 05/12/18 09:38 Dose: Not Given Metoprolol Tartrate (Lopressor) 12.5 mg PO BID [facility] Last Admin: 05/12/18 09:39 Dose: Not Given Miscellaneous Medication (Vancomycin Sliding Scale) 0 each FS PRN PRN PRN Reason: VANC SLIDING SCALE Miscellaneous Medication (Pharmacy To Dose) 1 each IVPB ONE PRN PRN Reason: Pharmacy to dose Stop: 06/10/18 18:21 Nitroglycerin (Nitrostat) 0.4 mg SL Q5MIN PRN PRN Reason: Chest Pain Hold Vancomycin For (Level >20) 0 each FS .AT DIALYSIS PRN PRN Reason: HOLD VANCOMYCIN IF LEVEL >20 Ondansetron HCl (Zofran) 4 mg IVP Q6H PRN PRN Reason: Nausea/Vomiting Polyethylene Glycol (Miralax) 17 gm PO DAILY PRN PRN Reason: Constipation Ropinirole HCl (Requip) 0.5 mg PO BID [facility] Last Admin: 05/12/18 09:40 Dose: 0.5 mg Sevelamer Carbonate (Renvela) 800 mg PO TID-WM [facility] Last Admin: 05/12/18 13:55 Dose: 800 mg Simvastatin (Zocor) 20 mg PO HS [facility] Last Admin: 05/11/18 22:24 Dose: 20 mg Sodium Chloride (Flush - Normal Saline) 10 ml IVF Q12HR [facility] Last Admin: 05/12/18 09:41 Dose: 10 ml Sodium Chloride (Flush - Normal Saline) 10 ml IVF PRN PRN PRN Reason: Saline Flush Tramadol HCl (Ultram) 50 mg PO BIDPRN PRN PRN Reason: Pain Zolpidem Tartrate (Ambien) 10 mg PO HSPRN PRN PRN Reason: Insomnia
--- NOTE | 2018-05-12 15:24 | PQF ---
DATE: 05-12-18 ATTN: DR. SUZETTE JUAREZ Please exercise your independent, professional judgment in responding to the clarification form. Clinical indicators are provided on the bottom of this form for your review Please check appropriate box(s) to clarify if the following diagnosis has been ruled in or ruled out: SEPSIS [ ] Ruled in diagnosis [ ] Continue to treat [ ] Resolved [ ] Ruled out diagnosis [ ] Other diagnosis [ ] Unable to determine In addition, please specify: Present on Admission (POA): [ ] Yes [ ] No [ ] Unable to determine For continuity of documentation, please document condition throughout progress notes and discharge summary. Thank You. CLINICAL INDICATORS - SIGNS / SYMPTOMS / LABS H&P: POSSIBLE EARLIER STAGE OF SEPSIS. PATIENT HAS RESP RATE 20, HR [address] MILNER 05-12-18: HYPOTENSION, SEPSIS? WBC: 05-10-18: 10.9 05-11-18: 11.2 TEMP: ER: 99.6 05-11-18: 99.5, 99.5 HR: ER: 108, 109, 103, 102, 105, 105 BP: 05-11-18: 95/54, 88/58, 95/54 05-12-18: 90/51, 91/51, 95/51 RISK FACTORS: H&P: POSSIBLE EARLIER STAGE OF SEPSIS. PATIENT HAS RESP RATE 20, HR 108 H&P: DM 1, HEMODIALYSIS, HLP, HTN, IN WITH RIGHT LOWER EXTREMITY CELLULITIS, NSTEMI, ESRD WITH AV GRAFT OBSTRUCTION TREATMENTS: MAR: ROCEPHIN, VANCOMYCIN, ZOSYN (This form is maintained as a part of the permanent medical record) 2014 [employer] All Rights Reserved [email or web address] Office: [phone] [facility]
--- NOTE | 2018-05-12 16:23 | ULT ---
BILATERAL LOWER EXTREMITY ARTERIAL ULTRASOUND 05/12/18 COMPARISON: 05/11/18. HISTORY: Nonhealing wound and cellulitis in the right leg and right foot. TECHNIQUE: Multiplanar jorgensen scale and color doppler images were obtained in a bilateral lower extremity arterial ultrasound. Spectral analysis of the doppler waveforms were performed. FINDINGS: There is a biphasic waveform in the right common femoral artery. The waveforms are monophasic through out the rest of the right lower extremity including the profunda femoral artery, superficial femoral artery, popliteal artery and anterior tibial artery. Flow is unable to be seen in the posterior tibia l artery on the right. The patient has a left below the knee amputation. There is a triphasic waveform in the left common fe moral artery. The waveform is monophasic in the profunda femoral artery on the left. There are biphas ic waveforms in the left superficial femoral artery and popliteal artery. No significant increase in velocity seen from one segment to the next to suggest focal atheroscleroti c disease. IMPRESSION: Significantly abnormal waveforms with monophasic waveforms of the right leg suggests more proximal at herosclerotic disease. Per the CT and some of these images, there is moderate diffuse atherosclerotic disease in the visualized vessels. POS: KRISTIAN
[2018-05-12] MEDS: Docusate 100 MG CAP PO SCH (21:30)
[2018-05-12] MEDS: Amitriptyline HCl 10 MG TAB PO SCH (21:31)
[2018-05-12] MEDS: Simvastatin 20 MG TAB PO SCH (21:31)
[2018-05-12] MEDS: Heparin 5,000 UNITS/ML VIAL SC SCH (21:34)
[2018-05-13] MEDS: HYDROcodone/Acetaminophen 5/325 mg Tablet PO PRN (00:08)
[2018-05-13 06:13] LABS: #Basophils 0.1 thou/uL (0.0-0.2); #Eosinphils 0.4 thou/uL (0.0-0.7); #Lymphocytes 2.4 thou/uL (1.20-3.40); #Monocytes 0.5 thou/uL (0.11-0.59); #Neutrophils 5.2 thou/uL (1.40-6.50); %Basophils 0.6 % (0.0-1.0); %Eosinophils 4.5 % (0.0-10.0); %Lymphocytes 28.4 % (21.0-51.0); %Monocytes 5.8 % (0.0-10.0); %Neutrophils 60.6 % (42.0-75.0); Hemoglobin 8.7 g/dL (12.0-16.0); Mean Corpuscular HGB CONC 31.9 g/dL (32.0-36.0); Mean Corpuscular Hemoglobin 30.6 pg (27.0-31.0); Mean Corpuscular Volume 96.1 fL (78.0-98.0); Mean Platelet Volume 6.1 fL (7.4-10.4); Platelet Count 307 thou/uL (130-400); Red Blood Cell (RBC) Count 2.84 mill/uL (4.20-5.40); White Blood Cell (WBC) Count 8.5 thou/uL (4.8-10.8)
[2018-05-13 06:21] LABS: Anion Gap 18 mmol/L (10-20); BUN (Urea Nitrogen) 51 mg/dL (9.8-20.1); Calc. Creatinine Clearance 14 mL/min (70-130); Calcium 8.9 mg/dL (7.8-10.44); Carbon Dioxide 27 mmol/L (22-29); Chloride 98 mmol/L (98-107); Estimated GFR-MDRD 7; Glucose 178 mg/dL (70-105); Magnesium 2.2 mg/dL (1.6-2.6); Potassium 3.9 mmol/L (3.5-5.1); Sodium 139 mmol/L (136-145)
[2018-05-13] MEDS: rOPINIRole HCl 0.5 MG TAB PO SCH ×2 (09:02→20:58)
[2018-05-13] MEDS: Aspirin 325 mg Enteric Coated Tablet PO SCH (09:02)
[2018-05-13] MEDS: Heparin 5,000 UNITS/ML VIAL SC SCH ×2 (09:03→21:00)
[2018-05-13] MEDS: Docusate 100 MG CAP PO SCH ×2 (09:03→21:01)
[2018-05-13] MEDS: Sevelamer Carbonate 800 MG TAB PO SCH ×3 (09:03→18:52)
[2018-05-13] MEDS: NPH, Human Insulin Isophane 300 UNIT/3 ML VIAL SC SCH (09:04)
[2018-05-13] MEDS: Metoprolol Tartrate 25 MG TAB PO SCH ×2 (09:04→20:59)
[2018-05-13] MEDS: Lisinopril 5 MG TAB PO SCH (09:04)
--- NOTE | 2018-05-13 10:46 | PRG ---
DATE OF SERVICE: 05/13/2018 SUBJECTIVE: This 53-year-old female being seen for end-stage renal disease. Patient denies any naus ea, vomiting, chest pain. PHYSICAL EXAMINATION: GENERAL: Patient is awake, alert. VITAL SIGNS: Afebrile, pulse 80, breathing at 16, blood pressure 108/61. OBJECTIVE: See above. Awake, alert, in no acute distress. GENERAL APPEARANCE AND MENTAL STATUS: Fair. HEAD/NECK: Normocephalic. Atraumatic. EYES: EOMI. No deformity. EARS: Clear. No ulcers. NOSE: Intact. No lesions. MOUTH: Clear. No discharge. THROAT: Clear. No exudate. LUNGS: Clear. No crackles. CARDIAC: S1, S2. No rub. ABDOMEN: Benign. BS+. GENITALIA/RECTUM: Tellez absent. BACK/EXTREMITIES: Edema 0+ Ulcer- NEUROLOGICAL: Alert and motor intact. SKIN: Rash- Bruise- LYMPHATICS: Edema- Ulcer- LABORATORY: Hemoglobin 8.7, creatinine 6.4. ASSESSMENT AND RECOMMENDATIONS: 1. Stage 6 chronic disease. We will plan hemodialysis Wednesday, , and Wednesday. 2. Hypertension, stable. 3. Anemia, stable. 4. Failed fistula. We will order a fistulogram. The patient now has a tunneled catheter.
[2018-05-13] MEDS: cefTRIAXone\\ROCEPHIN 1 GM in Sodium Chloride 0.9% 100 ML IVPB SCH (12:40)
[2018-05-13] MEDS ORDERED: Dextrose 5% in Water 1,000 ML IV PRN (12:56)
[2018-05-13] MEDS ORDERED: Insulin Regular 300 UNITS/3 ML VIAL SC PRN (12:56)
[2018-05-13] MEDS ORDERED: Dextrose 50% Abboject 50 ML SYRINGE SLOW IVP PRN (12:56)
[2018-05-13] MEDS ORDERED: NPH, Human Insulin Isophane 300 UNIT/3 ML VIAL SC SCH ×2 (12:57→13:30)
[2018-05-13] MEDS: Insulin Regular 300 UNITS/3 ML VIAL SC PRN ×2 (15:00→17:56)
[2018-05-13] MEDS ORDERED: Calcium Carbonate 500 MG ChewTAB PO PRN (15:42)
[2018-05-13] MEDS: Simvastatin 20 MG TAB PO SCH (20:59)
[2018-05-13] MEDS: Amitriptyline HCl 10 MG TAB PO SCH (21:01)
--- NOTE | 2018-05-13 21:54 | PDOC.PN ---
- Subjective Encounter Start Date: 05/13/18 Encounter Start Time: 17:00 Patient seen and examined for NSTEMI/Cellulitis. No new complaints. No overnight events. No CP/SOB/palpitations. - Objective MAR Reviewed: Yes Vital Signs & Weight: Vital Signs (12 hours) Temp Pulse Resp BP Pulse Ox 05/13/18 16:44 98.3 F 93 16 123/62 95 05/13/18 12:39 98.8 F 93 16 96/53 L 94 L Weight Admit Weight 190 lb 11.2 oz Weight 178 lb 8 oz I&O: 05/12/18 05/13/18 05/14/18 06:59 06:59 06:59 Intake Total 709 450 Balance 709 450 Result Diagrams: 05/13/18 05:40 05/13/18 05:40 Additional Labs: Accuchecks 05/13/18 05/13/18 05/13/18 20:47 16:43 10:54 POC Glucose 109 163 H 269 H 05/13/18 05/11/18 05:52 13:05 POC Glucose 188 H 235 H EKG Reviewed by me: Yes (Tele SR) Phys Exam - Physical Examination Constitutional: NAD Respiratory: no wheezing, no rhonchi Cardiovascular: RRR, no rub Gastrointestinal: soft, non-tender, positive bowel sounds Musculoskeletal: edema present RLE - improving, s/p Left BKA Neurological: non-focal, moves all 4 limbs Dx/Plan - Plan DVT proph w/heparin IMPRESSION: 1. NSTEMI 2. Sepsis due to RLE Cellulitis 3. ESRD on dialysis with dialysis malfunction s/p new catheter placement this admission 4. DM2 5. HTN 6. RLS/ Chronic Anemia due to renal disease / Obesity 37.6 / GERD / Chronic diastolic heart failure PLAN: Cont ASA/Metoprolol/Lisinopril Change NPH to 30 units BID with sliding scale Cont Vancomycin with dialysis Cont Ceftriaxone Cont wound care Cardiac cath after cellulitis Rx per Cardiology Rt arm Fistulogram on wednesday per Nephro Review of Systems - Review of Systems Respiratory: negative: Cough, Dry, Shortness of Breath, Hemoptysis, SOB with Excertion, Pleuritic Pain, Sputum, Wheezing Cardiovascular: negative: chest pain, palpitations, orthopnea, paroxysmal nocturnal dyspnea, edema, light headedness, other - Medications/Allergies Allergies/Adverse Reactions: Allergies Allergy/AdvReac Type Severity Reaction Status Date / Time gabapentin AdvReac Unknown Verified 02/06/15 11:25 gentamicin [Gentamicin] AdvReac Unknown Verified 02/06/15 11:25 plastic tape Allergy Uncoded 12/10/14 15:18 Medications: Current Medications Acetaminophen (Tylenol) 1,000 mg PO Q6H PRN PRN Reason: Moderate to Severe Pain (6-10) Hydrocodone Bitart/Acetaminophen (Carney 5/325) 1 tab PO Q6H PRN PRN Reason: Moderate Pain (4-6) Last Admin: 05/13/18 00:08 Dose: 1 tab Amitriptyline HCl (Elavil) 20 mg PO HS [facility] Last Admin: 05/13/18 21:01 Dose: 20 mg Aspirin (Ecotrin) 325 mg PO DAILY [facility] Last Admin: 05/13/18 09:02 Dose: 325 mg Calcium Carbonate (Tums) 1,000 mg PO Q4H PRN PRN Reason: Heartburn or Indigestion Last Admin: 05/13/18 16:42 Dose: 1,000 mg Dextrose/Water (Dextrose 50%) 25 gm SLOW IVP PRN PRN PRN Reason: Hypoglycemia Diphenhydramine HCl (Benadryl) 25 mg PO Q6H PRN PRN Reason: Itching Docusate Sodium (Colace) 100 mg PO BID [facility] Last Admin: 05/13/18 21:01 Dose: Not Given Glucagon (Glucagon) 1 mg IM PRN PRN PRN Reason: Hypoglycemia Heparin Sodium (Porcine) (Heparin) 5,000 units SC BID [facility] Last Admin: 05/13/18 21:00 Dose: 5,000 units Hydralazine HCl (Apresoline) 10 mg SLOW IVP Q4H PRN PRN Reason: SBP Greater Than 180 Vancomycin HCl 1.25 gm/ Sodium (Chloride) 250 mls @ 166.667 mls/hr IVPB .AT DIALYSIS PRN PRN Reason: IF VANC LEVEL <= 5.0 Vancomycin HCl 1 gm/ Device 200 mls @ 200 mls/hr IVPB .AT DIALYSIS PRN PRN Reason: IF VANC LEVEL >5 AND <=10 Vancomycin HCl 750 mg/ Sodium (Chloride) 250 mls @ 250 mls/hr IVPB .AT DIALYSIS PRN PRN Reason: IF VANC LEVEL >10 AND <= 15 Vancomycin HCl 500 mg/ Sodium (Chloride) 100 mls @ 100 mls/hr IVPB .AT DIALYSIS PRN PRN Reason: IF VANC LEVEL >15 AND <=20 Ceftriaxone Sodium 1 gm/ (Sodium Chloride) 100 mls @ 200 mls/hr IVPB Q24HR [facility] Last Admin: 05/13/18 12:40 Dose: 100 mls Dextrose/Water (D5w) 1,000 mls @ 0 mls/hr IV .Q0M PRN; As Directed PRN Reason: Hypoglycemia Insulin Human NPH (Humulin N) 30 unit SC BID [facility] Insulin Human Regular (Humulin R) 0 units SC .MODERATE SLIDING SC PRN PRN Reason: Moderate Correctional Scale Last Admin: 05/13/18 17:56 Dose: 2 unit Insulin Human Regular (Humulin R) 0 units SC .BEDTIME SLIDING SC PRN PRN Reason: Bedtime Correctional Scale Lisinopril (Zestril) 5 mg PO DAILY [facility] Last Admin: 05/13/18 09:04 Dose: Not Given Metoprolol Tartrate (Lopressor) 12.5 mg PO BID [facility] Last Admin: 05/13/18 20:59 Dose: 12.5 mg Miscellaneous Medication (Vancomycin Sliding Scale) 0 each FS PRN PRN PRN Reason: VANC SLIDING SCALE Miscellaneous Medication (Pharmacy To Dose) 1 each IVPB ONE PRN PRN Reason: Pharmacy to dose Stop: 06/10/18 18:21 Nitroglycerin (Nitrostat) 0.4 mg SL Q5MIN PRN PRN Reason: Chest Pain Hold Vancomycin For (Level >20) 0 each FS .AT DIALYSIS PRN PRN Reason: HOLD VANCOMYCIN IF LEVEL >20 Ondansetron HCl (Zofran) 4 mg IVP Q6H PRN PRN Reason: Nausea/Vomiting Pantoprazole Sodium (Protonix) 40 mg PO DAILY [facility] Polyethylene Glycol (Miralax) 17 gm PO DAILY PRN PRN Reason: Constipation Ropinirole HCl (Requip) 0.5 mg PO BID [facility] Last Admin: 05/13/18 20:58 Dose: 0.5 mg Sevelamer Carbonate (Renvela) 800 mg PO TID-WM [facility] Last Admin: 05/13/18 18:52 Dose: 800 mg Simvastatin (Zocor) 20 mg PO HS [facility] Last Admin: 05/13/18 20:59 Dose: 20 mg Sodium Chloride (Flush - Normal Saline) 10 ml IVF Q12HR [facility] Last Admin: 05/13/18 21:05 Dose: 10 ml Sodium Chloride (Flush - Normal Saline) 10 ml IVF PRN PRN PRN Reason: Saline Flush Tramadol HCl (Ultram) 50 mg PO BIDPRN PRN PRN Reason: Pain Zolpidem Tartrate (Ambien) 10 mg PO HSPRN PRN PRN Reason: Insomnia
[2018-05-14] MEDS: NPH, Human Insulin Isophane 300 UNIT/3 ML VIAL SC SCH ×3 (01:05→20:58)
[2018-05-14] MEDS: Aspirin 325 mg Enteric Coated Tablet PO SCH ×2 (08:15→08:16)
[2018-05-14] MEDS ORDERED: Heparin 1,000 UNITS/ML VIAL ONE (11:11)
--- NOTE | 2018-05-14 11:22 | PDOC.CTH ---
Cardiology Progress Note - Subjective In dialysis, treatment just completed. Complains of leg cramps, has RLS. Denies chest pain, shortness of breath. Crowley like her right leg felt better yesterday than today. No overnight cardiac events. - Objective Vital Signs Temp Pulse Resp BP Pulse Ox 05/14/18 04:00 97.9 F 87 18 102/61 98 Admit Weight 190 lb 11.2 oz Weight 180 lb 9.6 oz 05/13/18 05/14/18 05/15/18 06:59 06:59 06:59 Intake Total 450 500 Balance 450 500 - Physical Examination General/Neuro: alert & oriented x3, NAD Neck: no JVD present Lungs: unlabored respirations Heart: RRR Abdomen: NT/ND, soft Other PE findings: L BKA, right LE erythematous, edematous - Telemetry Telemetry Rhythm: SR - Labs Result Diagrams: 05/13/18 05:40 05/13/18 05:40 Troponin/CKMB CK-MB (CK-2) 7.0 ng/mL (0-6.6) H* 05/10/18 20:46 Troponin I 2.656 ng/mL (< 0.028) H* 05/11/18 04:17 - Assessment/Plan 1. NSTEMI-no anginal symptoms, plan for LHC once cellulitis treated. Continue ECASA, BB, ACEi, statin. 2. LE cellulitis-antibiotics per primary MD, ID 3. Hypotension, sepsis 4. ESRD-managed by Dr. Moctezuma. Plan for fistulogram Wednesday. 5. Possible CAD, asymptomatic currently.
--- NOTE | 2018-05-14 13:58 | PRG ---
DATE OF SERVICE: 05/14/2018. SUBJECTIVE: The patient is seen and examining at the dialysis unit. The patient is getting dialyzed during my visit. She is concerned about the right lower extremity erythema and pain. She states th at this is significantly better than what she had at the beginning of the hospitalization, but she flores s a small spot just behind her right knee, which is painful. OBJECTIVE: VITAL SIGNS: Blood pressure is 96/55, pulse is 79, temperature is 97.8, respiratory rate is 18, O2 s aturation is 100 on room air. HEENT: Head is atraumatic, normocephalic. Eyes are PERRLA. Conjunctivae pinkish. Oral mucosa is m oist. NECK: Supple. LUNGS: Clear. HEART: S1, S2 normal, no S3, no S4, no any murmur. ABDOMEN: Soft, obese, nontender, bowel sounds are present, no organomegaly. EXTREMITIES: Left lower extremity, below the knee amputee. Right lower extremity, there is some ruth thema and some swelling and pain in the lateral knee area. NEUROLOGIC: She is alert and oriented x4. There is not any sensorimotor deficits. Cranial nerves a re intact. LABORATORY DATA: Showed a glycemia ranging from 109-269. Microbiology: Blood cultures x2, negative . IMPRESSION: 1. Right lower extremity cellulitis, improved with vancomycin and Rocephin. 2. Gif-ZG-tfitbsy elevation myocardial infarction. 3. End-stage renal disease on hemodialysis with dialysis malfunction, status post new catheter place ment during this admission. 4. Diabetes mellitus type 2. 5. Hypertension. 6. Restless leg syndrome. 7. Chronic anemia. 8. Chronic diastolic heart failure. 9. Gastroesophageal reflux disease. 10. Obesity. PLAN: Continue vancomycin and Rocephin. Obtain venous Doppler of the right lower extremity. Contin ue her long-acting insulin twice a day. She is supposed to have cardiac catheterization after the ce llulitis is under control and she is supposed to have a right arm fistulogram on Wednesday per Nephrolog y.
[2018-05-14] MEDS: cefTRIAXone\\ROCEPHIN 1 GM in Sodium Chloride 0.9% 100 ML IVPB SCH (14:25)
[2018-05-14] MEDS: Docusate 100 MG CAP PO SCH (14:26)
[2018-05-14] MEDS: Lisinopril 5 MG TAB PO SCH ×2 (14:27→14:31)
[2018-05-14] MEDS: Metoprolol Tartrate 25 MG TAB PO SCH ×2 (14:28→14:32)
[2018-05-14] MEDS: Sevelamer Carbonate 800 MG TAB PO SCH ×3 (14:28→17:39)
[2018-05-14] MEDS: rOPINIRole HCl 0.5 MG TAB PO SCH ×2 (14:28→20:53)
--- NOTE | 2018-05-14 14:28 | PRG ---
DATE OF SERVICE: 05/14/2018 SUBJECTIVE: A 53-year-old female being seen for end-stage renal disease. The patient denies any yoel sea, vomiting, and chest pain. PHYSICAL EXAMINATION: GENERAL: Patient is awake, alert. VITAL SIGNS: Afebrile, pulse 87, breathing 16, blood pressure 102/61. HEAD/NECK: Normocephalic. Atraumatic. EYES: EOMI. No deformity. EARS: Clear. No ulcers. NOSE: Intact. No lesions. MOUTH: Clear. No discharge. THROAT: Clear. No exudate. LUNGS: Clear. No crackles. CARDIAC: S1, S2. No rub. ABDOMEN: Benign. BS+. GENITALIA/RECTUM: Tellez absent. BACK/EXTREMITIES: Edema 0+ Ulcer- NEUROLOGICAL: Alert and motor intact. SKIN: Rash- Bruise- LYMPHATICS: Edema- Ulcer- LABORATORY DATA: Show hemoglobin 8.7, potassium 3.9. ASSESSMENT AND RECOMMENDATIONS: 1. Stage 6 chronic kidney disease, plan dialysis. 2. Hypertension, stable. 3. Anemia, stable. 4. Congestive heart failure, improving.
[2018-05-14] MEDS: Heparin 5,000 UNITS/ML VIAL SC SCH ×2 (14:33→20:55)
[2018-05-14 14:38] LABS: Vancomycin, Random 9.1 ug/mL (See Comment)
[2018-05-14] MEDS ORDERED: Vancomycin HCl 1 GM in Premix Bag 1 BAG IVPB SCH (15:00)
--- NOTE | 2018-05-14 15:27 | ULT ---
DOPPLER VENOUS ULTRASOUND OF THE RIGHT LOWER EXTREMITY: INDICATION: Pain, edema, and erythema of the right lower extremity. TECHNIQUE: Lester scale, color Doppler, and vascular duplex with spectral analysis was performed of the deep venou s structures of both lower extremities. The common femoral vein, superficial femoral vein, popliteal vein, posterior tibial vein, proximal greater saphenous, and proximal profunda veins were assessed bi laterally. FINDINGS: There is normal compression, flow, and augmentation seen within the deep venous structures of the rig ht lower extremity. IMPRESSION: No evidence of deep vein thrombosis of the right lower extremity. POS: WILMAR
[2018-05-14] MEDS: Simvastatin 20 MG TAB PO SCH (20:53)
[2018-05-14] MEDS: Amitriptyline HCl 10 MG TAB PO SCH (20:53)
[2018-05-15] MEDS: Metoprolol Tartrate 25 MG TAB PO SCH ×3 (02:59→20:29)
[2018-05-15] MEDS: Docusate 100 MG CAP PO SCH ×4 (03:00→20:30)
[2018-05-15] MEDS: HYDROcodone/Acetaminophen 5/325 mg Tablet PO PRN (04:55)
[2018-05-15 05:43] LABS: #Basophils 0.1 thou/uL (0.0-0.2); #Eosinphils 0.4 thou/uL (0.0-0.7); #Lymphocytes 2.2 thou/uL (1.20-3.40); #Monocytes 0.4 thou/uL (0.11-0.59); #Neutrophils 5.1 thou/uL (1.40-6.50); %Basophils 0.7 % (0.0-1.0); %Lymphocytes 26.8 % (21.0-51.0); %Monocytes 4.9 % (0.0-10.0); %Neutrophils 62.6 % (42.0-75.0); Hemoglobin 9.2 g/dL (12.0-16.0); Mean Corpuscular HGB CONC 34.4 g/dL (32.0-36.0); Mean Platelet Volume 6.1 fL (7.4-10.4); Platelet Count 287 thou/uL (130-400); RBC Distribution Width 13.9 % (11.5-14.5); Red Blood Cell (RBC) Count 2.87 mill/uL (4.20-5.40); White Blood Cell (WBC) Count 8.1 thou/uL (4.8-10.8)
[2018-05-15 06:05] LABS: Anion Gap 15 mmol/L (10-20); BUN (Urea Nitrogen) 32 mg/dL (9.8-20.1); Calc. Creatinine Clearance 18 mL/min (70-130); Calcium 8.9 mg/dL (7.8-10.44); Carbon Dioxide 27 mmol/L (22-29); Chloride 97 mmol/L (98-107); Estimated GFR-MDRD 9; Glucose 222 mg/dL (70-105); Potassium 4.1 mmol/L (3.5-5.1); Sodium 135 mmol/L (136-145)
[2018-05-15] MEDS: Lisinopril 5 MG TAB PO SCH (09:27)
[2018-05-15] MEDS: Sevelamer Carbonate 800 MG TAB PO SCH ×3 (09:27→17:50)
[2018-05-15] MEDS: rOPINIRole HCl 0.5 MG TAB PO SCH ×2 (09:28→20:29)
[2018-05-15] MEDS: Heparin 5,000 UNITS/ML VIAL SC SCH ×2 (09:30→20:30)
[2018-05-15] MEDS: NPH, Human Insulin Isophane 300 UNIT/3 ML VIAL SC SCH ×2 (09:31→20:34)
[2018-05-15] MEDS: Insulin Regular 300 UNITS/3 ML VIAL SC PRN ×2 (09:33→18:22)
--- NOTE | 2018-05-15 11:33 | PDOC.CTH ---
Cardiology Progress Note - Subjective Awake, watching TV. Feels okay, believes left leg to be better than yesterday, much less pain, redness, remains swollen. Denies chest pain, shortness of breath, N/V/D. No overnight cardiac events. - Objective Vital Signs Temp Pulse Pulse Pulse Resp BP BP 05/15/18 09:27 88 107/55 L 05/15/18 09:21 100 108 H 92/53 L 05/15/18 03:32 98.4 F 93 14 BP BP Pulse Ox Pulse Ox Pulse Ox 05/15/18 09:27 05/15/18 09:21 115/59 L 98 99 05/15/18 03:32 109/58 L 96 Admit Weight 190 lb 11.2 oz Weight 179 lb 3.2 oz 05/14/18 05/15/18 05/16/18 06:59 06:59 06:59 Intake Total 500 1520 Output Total 1000 Balance 500 520 - Physical Examination General/Neuro: alert & oriented x3, NAD Neck: no JVD present Lungs: CTA, unlabored respirations Heart: RRR Abdomen: NT/ND, soft Extremities: other: (Mild edema, erythema to RLE) - Telemetry Telemetry Rhythm: SR BBB - Labs Result Diagrams: 05/15/18 05:20 05/15/18 05:20 Troponin/CKMB CK-MB (CK-2) 7.0 ng/mL (0-6.6) H* 05/10/18 20:46 Troponin I 2.656 ng/mL (< 0.028) H* 05/11/18 04:17 - Assessment/Plan 1. NSTEMI-no anginal symptoms, plan for C once cellulitis improved. Continue ECASA, BB, ACEi, statin. 2. LE cellulitis-antibiotics per primary MD, ID 3. Hypotension, sepsis-BP improved. 4. ESRD-managed by Dr. Moctezuma. Plan for fistulogram Wednesday. 5. Possible CAD, asymptomatic currently.
--- NOTE | 2018-05-15 13:24 | PRG ---
DATE OF SERVICE: 05/15/2018 SUBJECTIVE: This 53-year-old female being seen for end-stage renal disease. Patient denies any naus ea, vomiting, chest pain. PHYSICAL EXAMINATION: GENERAL: Patient is awake, alert. VITAL SIGNS: Afebrile, pulse 88, breathing 16, blood pressure 107/55. HEAD/NECK: Normocephalic. Atraumatic. EYES: EOMI. No deformity. EARS: Clear. No ulcers. NOSE: Intact. No lesions. MOUTH: Clear. No discharge. THROAT: Clear. No exudate. LUNGS: Clear. No crackles. CARDIAC: S1, S2. No rub. ABDOMEN: Benign. BS+. GENITALIA/RECTUM: Tellez absent. BACK/EXTREMITIES: Edema 0+ Ulcer- NEUROLOGICAL: Alert and motor intact. SKIN: Rash- Bruise- LYMPHATICS: Edema- Ulcer- LABORATORY DATA: Show hemoglobin 9.2, creatinine 4.2. ASSESSMENT AND RECOMMENDATIONS: 1. Stage 6 chronic kidney disease. We will plan dialysis Wednesday. Failed access. Planned fr om tomorrow to see if the patient's [place] fistula is salvageable. 2. Anemia, stable. 3. Hyperkalemia, stable. 4. Cellulitis management per primary team. 5. Peripheral vascular disease. 6. Coronary artery disease.
[2018-05-15] MEDS: cefTRIAXone\\ROCEPHIN 1 GM in Sodium Chloride 0.9% 100 ML IVPB SCH (14:03)
--- NOTE | 2018-05-15 14:15 | PRG ---
DATE OF SERVICE: 05/15/2018 SUBJECTIVE: The patient is seen and examined at the bedside. She complains about some numbness and tingling in her both hands. She states that the feeling she gets when her rheumatoid arthritis start s acting up. She is requesting me to put her back on her hydroxychloroquine. OBJECTIVE: VITAL SIGNS: Blood pressure is 107/55, pulse is 88, respiratory rate is 18, O2 saturation is 100% on room air. HEENT: Atraumatic, normocephalic. Eyes are PERRLA. Sclerae nonicteric. Oral mucosa is moist. NECK: Supple, no lymphadenopathy. Thyroid is not palpable. LUNGS: Clear. HEART: S1, S2 normal, no S3, no S4. ABDOMEN: Soft, obese, nontender. EXTREMITIES: Swelling is approximately less than 1+ below the knee and erythema is significantly imp roved. NEUROLOGIC: She is alert and oriented x4. There is not any motor or sensory deficits. Cranial nerv es are intact. LABORATORY DATA: Showed white count of 8.1, hemoglobin 9.2, hematocrit 26.7, and platelet count 287, 000. Sodium of 135, potassium 4.1, chloride 97, BUN 32, creatinine 4.87, glucose is ranging from 106 -292. Microbiology: No new findings. Blood cultures negative at 48 hours plus. IMPRESSION: 1. Right lower extremity cellulitis improved with vancomycin and Rocephin to the point that patient can be switched to oral agent in the next 24-[address] Courtney's discretion. 2. Non-ST segment elevation myocardial infarction. 3. End-stage renal disease, on hemodialysis. She completed her session yesterday. 4. Diabetes mellitus type 2. 5. Hypertension. 6. Restless leg syndrome. 7. Rheumatoid arthritis per patient's history. 8. Chronic diastolic heart failure. 9. Gastroesophageal reflux disease. 10. Obesity. PLAN: Restart her hydroxychloroquine for rheumatoid, continue vancomycin and Rocephin. Venous Doppl er of her lower extremity did not show any DVTs. We will continue her current regimen in terms of he r diabetic coverage. She is supposed to have cardiac catheterization after the cellulitis is under c ontrol and I think we had reached this point that this can be done although she is supposed to have a fistulogram done on Wednesday, so the cardiac catheterization needs to be postponed until Wednesday.
[2018-05-15] MEDS: Amitriptyline HCl 10 MG TAB PO SCH (20:28)
[2018-05-15] MEDS: Hydroxychloroquine Sulfate 200 MG TAB PO SCH (20:29)
[2018-05-15] MEDS: Simvastatin 20 MG TAB PO SCH (20:29)
[2018-05-16] MEDS: HYDROcodone/Acetaminophen 5/325 mg Tablet PO PRN ×2 (05:34→21:04)
[2018-05-16] MEDS: Heparin 5,000 UNITS/ML VIAL SC SCH ×2 (08:28→20:57)
[2018-05-16] MEDS: Sevelamer Carbonate 800 MG TAB PO SCH ×3 (08:28→19:40)
[2018-05-16] MEDS: Docusate 100 MG CAP PO SCH ×2 (08:28→20:58)
[2018-05-16] MEDS: Lisinopril 5 MG TAB PO SCH (08:28)
[2018-05-16] MEDS: Metoprolol Tartrate 25 MG TAB PO SCH ×2 (08:29→20:53)
[2018-05-16] MEDS: NPH, Human Insulin Isophane 300 UNIT/3 ML VIAL SC SCH ×2 (08:29→20:56)
[2018-05-16] MEDS: Aspirin 325 mg Enteric Coated Tablet PO SCH (08:30)
[2018-05-16] MEDS: rOPINIRole HCl 0.5 MG TAB PO SCH ×2 (08:30→20:54)
--- NOTE | 2018-05-16 09:51 | PDOC.PN ---
- Subjective Encounter Start Date: 05/16/18 Encounter Start Time: 09:48 Subjective: reduced pain and swelling in R LE - Objective MAR Reviewed: Yes Vital Signs & Weight: Vital Signs (12 hours) Temp Pulse Resp BP BP Pulse Ox 05/16/18 08:28 80 102/59 L 05/16/18 08:27 97.9 F 80 16 102/59 L 99 05/16/18 03:30 97.6 F 81 16 95/50 L 100 05/16/18 00:46 98.0 F 89 16 101/58 L 99 Weight Admit Weight 190 lb 11.2 oz Weight 175 lb 8 oz I&O: 05/15/18 05/16/18 05/17/18 06:59 06:59 06:59 Intake Total 1520 610 Output Total 1000 Balance 520 610 Result Diagrams: 05/15/18 05:20 05/15/18 05:20 Additional Labs: Accuchecks 05/16/18 05/15/18 05/15/18 06:06 21:00 16:43 POC Glucose 89 158 H 196 H 05/15/18 05/15/18 11:47 10:41 POC Glucose 292 H 376 H Phys Exam - Physical Examination Neck: no JVD Respiratory: clear to auscultation bilateral Cardiovascular: RRR, no significant murmur Gastrointestinal: soft, non-tender, positive bowel sounds minimal erythema R leg. post L AKA Dx/Plan (1) Cellulitis and abscess of right leg Code(s): L03.115 - CELLULITIS OF RIGHT LOWER LIMB; L02.415 - CUTANEOUS ABSCESS OF RIGHT LOWER LIMB Status: Acute (2) ESRD (end stage renal disease) on dialysis Code(s): N18.6 - END STAGE RENAL DISEASE; Z99.2 - DEPENDENCE ON RENAL DIALYSIS Status: Chronic (3) NSTEMI (non-ST elevated myocardial infarction) Code(s): I21.4 - NON-ST ELEVATION (NSTEMI) MYOCARDIAL INFARCTION Status: Acute (4) CAD (coronary artery disease) Code(s): I25.10 - ATHSCL HEART DISEASE OF [place] CORONARY ARTERY W/O ANG PCTRS Status: Chronic Qualifiers: Coronary Disease-Associated Artery/Lesion type: [place] artery [place] vs. transplanted heart: [place] heart Associated angina: without angina Qualified Code(s): I25.10 - Atherosclerotic heart disease of [place] coronary artery without angina pectoris (5) DM2 (diabetes mellitus, type 2) Status: Acute Qualifiers: Diabetes mellitus ocean transportation intermediary insulin use: with detention use Diabetes mellitus complication status: with kidney complications Diabetes mellitus complication detail: with chronic kidney disease Chronic kidney disease stage : on chronic dialysis Qualified Code(s): E11.22 - Type 2 diabetes mellitus with diabetic chronic kidney disease; N18.6 - End stage renal disease; N18.6 - End stage renal disease; N18.6 - End stage renal disease; N18.6 - End stage renal disease; Z79.4 - intermediate (current) use of insulin; Z79.4 - intermediate ( current) use of insulin; Z79.4 - manager intermediate (current) use of insulin; Z79.4 - intermediate (current) use of insulin; Z99.2 - Dependence on renal dialysis; Z99.2 - Dependence on renal dialysis; Z99.2 - Dependence on renal dialysis; Z99.2 - Dependence on renal dialysis (6) HTN (hypertension) Code(s): I10 - ESSENTIAL (PRIMARY) HYPERTENSION Status: Chronic Qualifiers: Hypertension type: essential hypertension Qualified Code(s): I10 - Essential (primary) hypertension (7) Anemia, chronic renal failure Code(s): N18.9 - CHRONIC KIDNEY DISEASE, UNSPECIFIED; D63.1 - ANEMIA IN CHRONIC KIDNEY DISEASE Status: Chronic Qualifiers: Chronic kidney disease stage: stage 5 Qualified Code(s): N18.5 - Chronic kidney disease, stage 5; D63.1 - Anemia in chronic kidney disease; D63.1 - Anemia in chronic kidney disease - Plan cont HD per renal. fistulogram today -: cont parenteral antibx, discuss with ID -: cont asa, b-shira -: cont accu/ss/long acting insulin * .
[2018-05-16] MEDS ORDERED: Activase 2 MG VIAL CATH SCH (12:30)
[2018-05-16] MEDS ORDERED: Sterile Water 10 ML VIAL IVP SCH (12:30)
[2018-05-16] MEDS: cefTRIAXone\\ROCEPHIN 1 GM in Sodium Chloride 0.9% 100 ML IVPB SCH (15:02)
--- NOTE | 2018-05-16 17:30 | PDOC.CTH ---
Cardiology Progress Note - Subjective Cellulitis significantly improved. No other issues. - Objective Vital Signs Temp Pulse Resp BP BP BP Pulse Ox 05/16/18 15:10 97.6 F 75 16 92/57 L 98 05/16/18 11:28 97.5 F L 77 16 88/54 L 99 05/16/18 08:30 97.9 F 80 16 99 05/16/18 08:28 80 102/59 L 05/16/18 08:27 97.9 F 80 16 102/59 L 99 Admit Weight 190 lb 11.2 oz Weight 175 lb 8 oz 05/15/18 05/16/18 05/17/18 06:59 06:59 06:59 Intake Total 1520 610 Output Total 1000 Balance 520 610 - Physical Examination General/Neuro: alert & oriented x3, NAD Neck: no JVD present Lungs: CTA, unlabored respirations Heart: RRR Abdomen: NT/ND Extremities: + edema B (Trace right leg.) - Telemetry Telemetry Rhythm: NSR - Labs Result Diagrams: 05/15/18 05:20 05/15/18 05:20 Troponin/CKMB CK-MB (CK-2) 7.0 ng/mL (0-6.6) H* 05/10/18 20:46 Troponin I 2.656 ng/mL (< 0.028) H* 05/11/18 04:17 - Assessment/Plan 1. NSTEMI 2. LE cellulits 3. Hypotension, sepsis? 4. ESRD. 5. Possible CAD, asymptomatic currently. PLAN: - Abx per primary team. - Cellulitis significantly better. - Plan on doing LHC tomorrow. - We spoke about risks and benefit. Risks included but not limited to stroke, [place] , , bleeding and need for blood transfusion,s limb loss, organ loss. She agrees to proceed.
[2018-05-16] MEDS ORDERED: Communication Order-Pharmacy FS SCH (17:45)
[2018-05-16] MEDS: Simvastatin 20 MG TAB PO SCH (20:52)
[2018-05-16] MEDS: Hydroxychloroquine Sulfate 200 MG TAB PO SCH (20:52)
[2018-05-16] MEDS: Amitriptyline HCl 10 MG TAB PO SCH (20:52)
[2018-05-16] MEDS: Cephalexin 250 MG CAP PO SCH (20:54)
--- NOTE | 2018-05-16 20:59 | PRG ---
DATE OF SERVICE: 05/16/2018 SUBJECTIVE: Right leg is pretty much back to baseline. No headaches. No shortness of breath or chest pain. Still having questions about the vascular dialysis access procedure. OBJECTIVE: VITAL SIGNS: Normal. GENERAL: Awake, alert, and oriented. LUNGS: Clear. CARDIOVASCULAR: S1, S2, regular rate. EXTREMITIES: Right leg with resolution of the inflammatory process. LABORATORY DATA: The white cell count 8.1, hemoglobin 9.2, and platelets 287. Microbiology with negative blood cultures. ASSESSMENT AND DISCUSSION: End-stage renal disease with peripheral vascular disease, cellulitis of the right leg with lymphangitis, chronic ulcer right first MPJ skin site. The arterial ultrasound showed abnormal waveforms with monophasic waveforms of the right leg suggestive of more proximal atherosclerotic disease and we will switch her to oral Keflex for discharge planning. She would be eligible for further evaluation to see if she would benefit from revascularization of the extremity. FIDELIA
--- NOTE | 2018-05-16 22:09 | PRG ---
DATE OF SERVICE: 05/16/2018 SUBJECTIVE: This is a 53-year-old female being seen for end-stage renal disease. Patient denies any nausea, vomiting or chest pain. PHYSICAL EXAMINATION: GENERAL: Patient is awake, alert. VITAL SIGNS: Afebrile, pulse 75, breathing 16, blood pressure 92/57. HEAD/NECK: Normocephalic. Atraumatic. EYES: EOMI. No deformity. EARS: Clear. No ulcers. NOSE: Intact. No lesions. MOUTH: Clear. No discharge. THROAT: Clear. No exudate. LUNGS: Clear. No crackles. CARDIAC: S1, S2. No rub. ABDOMEN: Benign. BS+. GENITALIA/RECTUM: Tellez absent. BACK/EXTREMITIES: Edema 0+ Ulcer- NEUROLOGICAL: Alert and motor intact. SKIN: Rash- Bruise- LYMPHATICS: Edema- Ulcer- LABORATORY DATA: Show hemoglobin 9.2. ASSESSMENT AND RECOMMENDATIONS: 1. Stage 6 chronic kidney disease, plan hemodialysis today. 2. Hyperlipidemia, stable. 3. Anemia, stable. 4. Cellulitis management per primary team. Failed access management per Dr. Briscoe.
[2018-05-17] MEDS: Metoprolol Tartrate 25 MG TAB PO SCH ×2 (05:43→20:46)
[2018-05-17] MEDS: Cephalexin 250 MG CAP PO SCH ×2 (05:43→20:45)
[2018-05-17] MEDS: Lisinopril 5 MG TAB PO SCH (05:44)
[2018-05-17] MEDS: rOPINIRole HCl 0.5 MG TAB PO SCH ×2 (05:44→20:45)
[2018-05-17] MEDS: Aspirin 325 mg Enteric Coated Tablet PO SCH (05:46)
[2018-05-17] MEDS ORDERED: Iopamidol 370 76% 100 ML VIAL ONE (08:42)
[2018-05-17] MEDS: NPH, Human Insulin Isophane 300 UNIT/3 ML VIAL SC SCH ×2 (08:46→20:52)
[2018-05-17] MEDS: Heparin 5,000 UNITS/ML VIAL SC SCH ×2 (08:46→20:46)
[2018-05-17] MEDS: Sevelamer Carbonate 800 MG TAB PO SCH ×3 (09:08→18:12)
[2018-05-17] MEDS: Docusate 100 MG CAP PO SCH ×2 (09:09→20:45)
--- NOTE | 2018-05-17 09:39 | PDOC.PN ---
- Subjective Encounter Start Date: 05/17/18 Encounter Start Time: 09:37 Subjective: no chest pain ,etc - Objective MAR Reviewed: Yes Vital Signs & Weight: Vital Signs (12 hours) Temp Pulse Resp BP BP Pulse Ox 05/17/18 08:00 97.8 F 71 16 90/53 L 97 05/17/18 05:44 75 05/17/18 04:00 98.1 F 82 18 98/66 99 Weight Admit Weight 190 lb 11.2 oz Weight 176 lb I&O: 05/16/18 05/17/18 05/18/18 06:59 06:59 06:59 Intake Total 610 1010 Balance 610 1010 Result Diagrams: 05/15/18 05:20 05/15/18 05:20 Additional Labs: Accuchecks 05/17/18 05/16/18 05/16/18 06:12 20:54 17:05 POC Glucose 138 H 140 H 124 H 05/16/18 09:52 POC Glucose 136 H Phys Exam - Physical Examination Neck: no JVD Respiratory: clear to auscultation bilateral Cardiovascular: RRR, no significant murmur Gastrointestinal: soft, non-tender Musculoskeletal: no edema Dx/Plan (1) Cellulitis and abscess of right leg Code(s): L03.115 - CELLULITIS OF RIGHT LOWER LIMB; L02.415 - CUTANEOUS ABSCESS OF RIGHT LOWER LIMB Status: Acute (2) ESRD (end stage renal disease) on dialysis Code(s): N18.6 - END STAGE RENAL DISEASE; Z99.2 - DEPENDENCE ON RENAL DIALYSIS Status: Chronic (3) NSTEMI (non-ST elevated myocardial infarction) Code(s): I21.4 - NON-ST ELEVATION (NSTEMI) MYOCARDIAL INFARCTION Status: Acute (4) CAD (coronary artery disease) Code(s): I25.10 - ATHSCL HEART DISEASE OF [place] CORONARY ARTERY W/O ANG PCTRS Status: Chronic Qualifiers: Coronary Disease-Associated Artery/Lesion type: [place] artery [place] vs. 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 use: with halfway use Diabetes mellitus complication status: with kidney complications Diabetes mellitus complication detail: with chronic kidney disease Chronic kidney disease stage : on chronic dialysis Qualified Code(s): E11.22 - Type 2 diabetes mellitus with diabetic chronic kidney disease; N18.6 - End stage renal disease; Z99.2 - Dependence on renal dialysis; Z99.2 - Dependence on renal dialysis; Z99.2 - Dependence on renal dialysis; N18.6 - End stage renal disease; N18.6 - End stage renal disease; N18.6 - End stage renal disease; Z79.4 - violin 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 (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 ) use of insulin; Z79.4 - violin restorer (current) use of insulin; Z79.4 - violin restorer (current) use of insulin; Z79.4 - prison (current) use of insulin; Z99.2 - Dependence on renal dialysis (6) HTN (hypertension) Code(s): I10 - ESSENTIAL (PRIMARY) HYPERTENSION Status: Chronic Qualifiers: Hypertension type: essential hypertension Qualified Code(s): I10 - Essential (primary) hypertension (7) Anemia, chronic renal failure Code(s): N18.9 - CHRONIC KIDNEY DISEASE, UNSPECIFIED; D63.1 - ANEMIA IN CHRONIC KIDNEY DISEASE Status: Chronic Qualifiers: Chronic kidney disease stage: stage 5 Qualified Code(s): N18.5 - Chronic kidney disease, stage 5; D63.1 - Anemia in chronic kidney disease; D63.1 - Anemia in chronic kidney disease - Plan CABG today -: cont HD, cont antibx -: FU POST OP * .
[2018-05-17] MEDS ORDERED: Lidocaine 1% (PF) 30 ML VIAL ONE (10:16)
[2018-05-17] MEDS ORDERED: Midazolam HCl 2 mg/2 ml Vial ONE (10:54)
[2018-05-17] MEDS ORDERED: Fentanyl 100 MCG/2 ML VIAL ONE (10:54)
[2018-05-17] MEDS ORDERED: Sodium Chloride 0.9% 200 ML IV SCH (13:45)
--- NOTE | 2018-05-17 15:11 | PRG ---
DATE OF SERVICE: 05/17/2018 Zakia Hedrick was seen earlier this morning and subsequently again this afternoon. The patient flores s a failed right arm fistula. She has had numerous interventions. Last intervention was in [facility] where they performed an angioplasty of a stented area of her mid right upper arm c ephalic vein fistula. I also performed an angioplasty of her arterial inflow. It was felt that it h ad a good result; however, by the next day, it was thrombosed. She was admitted to the hospital. Tavo kessler has transportation difficulty. She has financial difficulties paying doctor bills, and she mov es around for interventional dialysis access procedures at [facility], [place] and [place]. She is followed by Dr. Moctezuma. The patient has had a peritoneal dialysis catheter placed in [place], apparently via an open procedure. She has a supraumbilical midline scar. She reports int erventions removing some fatty tissue, but I do not see any laparoscopic scars on her abdomen. She i s a poor historian and does not give a history of laparoscopy. I have talked to her about retrying l aparoscopic peritoneal dialysis catheter placement after we evaluated her heart. She had elevated tr oponins on admission without chest pain, but only had dyspnea 1 episode. She has had previous cardia c evaluations without evident cardiac disease, but this was several years ago and she has several ris k factors. With her elevated troponins, even though she has not been able to dialyze when these were obtained, a cardiac catheterization was recommended, but this had been postponed due to cellulitis i n her leg from chronic venous stasis disease. By this time, this is improved. I have spoken with Dr Marques Vizcarra, who went on to do a cardiac catheterization today. This revealed a 3-vessel disease and sh e will need coronary artery bypass grafting. Considering this, a dialysis access surgery tomorrow is , of course, postponed. At a later time, when it is safe to do so, she will need a laparoscopic ginna toneal dialysis catheter placement and evaluation of left arm for primary fistula. Patient was counseled last week by me, explained to her that access in her right arm fistula is exhau sted. She, however, has been contacted by the nurses at the dialysis center that she should see Dr. Adair. I have talked to her about this and I informed her that previous right arm fistula acces ses have been unsuccessful and nondurable and further attempts were not worthwhile. She understands this. I have discussed the case with Dr. Moctezuma, her rn icu. At this point, I would recommend a ttention in resolution of her coronary artery disease with bypass and then whenever it is safe to do so proceed with laparoscopic peritoneal dialysis catheter placement and evaluation of left arm for pr imary fistula under the same general anesthetic.
[2018-05-17 15:14] VITALS: BMI 34.3
[2018-05-17] MEDS: Amitriptyline HCl 10 MG TAB PO SCH (20:45)
[2018-05-17] MEDS: Simvastatin 20 MG TAB PO SCH (20:45)
[2018-05-17] MEDS: Hydroxychloroquine Sulfate 200 MG TAB PO SCH (20:45)
--- NOTE | 2018-05-18 04:18 | PRG ---
DATE OF SERVICE: 05/17/2018 SUBJECTIVE: Patient was seen and examined at bedside and overnight events noted. Patient denies shortness of breath or cramps or chest pain or palpitation. No Nausea or vomiting or diarrhea or fever or chills. OBJECTIVE: GENERAL: This is a well-built female, in no apparent distress. VITAL SIGNS: Afebrile, RR 18, HR 74, blood pressure 98/55. HEENT: Atraumatic, normocephalic, Oral mucosa is moist. NECK: Supple. CARDIOVASCULAR: S1 and S2 heard. Rate and rhythm regular. RESPIRATORY: Clear to auscultation. GASTROINTESTINAL: Abdomen is soft. MUSCULOSKELETAL: No tenderness, no edema. DERMATOLOGIC: No skin rash. NEUROLOGIC: Alert and awake and oriented x3. No focal neurologic deficits. Moving all the extremities. PSYCHIATRIC: Mood and affect normal. LABORATORY DATA: Not done today. ASSESSMENT AND PLAN: 1. End-stage renal disease, continue on hemodialysis. 2. Hypertension, stable. 3. Anemia. 4. Edema, controlled. 5. Dialysis access. Follow up with Surgery. 6. We will continue on dialysis as tolerated. [facility]
[2018-05-18] MEDS: Metoprolol Tartrate 25 MG TAB PO SCH (08:51)
[2018-05-18] MEDS: Lisinopril 5 MG TAB PO SCH (08:54)
[2018-05-18] MEDS: Aspirin 325 mg Enteric Coated Tablet PO SCH (08:55)
[2018-05-18] MEDS: Cephalexin 250 MG CAP PO SCH (08:55)
[2018-05-18] MEDS: Sevelamer Carbonate 800 MG TAB PO SCH ×2 (08:55→13:12)
[2018-05-18] MEDS: Docusate 100 MG CAP PO SCH (08:55)
[2018-05-18] MEDS: Heparin 5,000 UNITS/ML VIAL SC SCH (08:56)
[2018-05-18] MEDS: rOPINIRole HCl 0.5 MG TAB PO SCH (08:56)
[2018-05-18] MEDS: NPH, Human Insulin Isophane 300 UNIT/3 ML VIAL SC SCH (08:59)
--- NOTE | 2018-05-18 10:09 | DIS ---
TRANSFER OF CARE NOTE DATE OF ADMISSION: 05/11/2018 DATE OF DISCHARGE: 05/18/2018 DISCHARGE DISPOSITION: Home. FINAL DIAGNOSES: 1. Cellulitis of right leg. 2. Non-ST elevation myocardial infarction. 3. Chronic renal failure requiring hemodialysis. 4. Diabetes mellitus type 2. 5. Anemia of chronic disease. 6. Coronary artery disease. 7. Hypertension. 8. 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 DISCHARGE MEDICATIONS: Hydroxychloroquine sulfate 200 mg a day, insulin regular as directed, omepraz ole 40 mg a day, Requip 2 mg twice a day, Elavil 20 mg at bedtime, Zocor 10 mg a day, Benadryl 25 mg p.o. q.6 hours p.r.n., tramadol 50 mg p.o. b.i.d. p.r.n., Renvela 800 mg p.o. t.i.d., Humulin N 30 un its subq twice a day, metoprolol 12.5 mg twice a day, lisinopril 5 mg a day, cephalexin 500 mg p.o. q .i.d. for 2 weeks, Tums 1000 mg p.o. q.4 hours p.r.n., aspirin 325 mg a day. ALLERGIES: GABAPENTIN, GENTAMICIN. CODE STATUS: FULL. PENDING AT THE TIME OF DISCHARGE: Nothing. DIET: Diabetic. CONSULTATIONS: Dr. Nico Moctezuma, Nephrology; Dr. John Briscoe, General Surgery; Dr. Jose Vizcarra, Cardiology; Dr. Gregg Courtney, Infectious Disease. PROCEDURES DURING HOSPITAL STAY: 1. 05/11/2018 - Right subclavian triple lumen catheter by Dr. Briscoe. 2. 05/17/2018 - Cardiac catheterization by Dr. Jose Vizcarra. HOSPITAL COURSE: The patient admitted to the hospital to the [facility] 05/11/2018 wi th right leg pain. She had a right leg cellulitis. She was started on IV antibiotics. She was note d to have an elevated troponin 3.[address] elevation, diagnosis of non-ST elevation [place], started on IV heparin. She was noted to have uncontrolled diabetes with blood sugar 352 on admission. Her initial laboratory revealed a white count of 10.9 which subsequently came down to normal. Hemogl obin ranged from 8.4 to 10.2, platelet count was normal. INR was 1.1. Initial chemistries; creatini ne 7.8, BUN 73, sodium 135, potassium 3.7, CO2 24. Her troponins were 3.3, 3.2 and 2.7. Coronary catheterization was postponed until treatment of her infection. Unfortunately cultures prov ed to be negative. Dr. Courtney, Infectious Disease, saw her on 05/12/2018. The patient was on broad s pectrum coverage including vancomycin and gram negative coverage. There was significant improvement in her legs. She had dialysis per Dr. Moctezuma while in the hospital. She underwent cardiac catheteriza tion on 05/17/2018. The report was LAD 80% ostial, circumflex 70% stenosis, right coronary 90% mid s tenosis. Surgery was recommended. The patient at this point stated that she is unable to have surge ry due to her living circumstances and that she will decline at this point and consider it at a later date. Dr. Yeboah had been consulted about it. The patient is currently doing well with resolution o f her cellulitis. The antibiotics are being continued. Other studies done during her hospital stay included echocardiogram which showed an EF of 50-55% with grade II diastolic dysfunction. Lower extremity ultrasound was done suggestive of peripheral vascul ar disease. At the time of discharge, the patient is doing well. Her vital signs are stable. Cardi orespiratory exam is normal. Most recent laboratory; controlled blood sugars in the 100-200 range. Creatinine 4.87, BUN 32, sodiu m 135, potassium 4.1. As mentioned, she is being discharged home. FOLLOWUP: With her PCP in 1 week. Follow up with Dr. Vizcarra, follow up with hemodialysis 3 times a week. Forty-five minutes spent preparing this discharge.
--- NOTE | 2018-05-18 11:56 | PDOC.CTH ---
Cardiology Progress Note - Subjective No new issues. No chest pain. - Objective Vital Signs Temp Pulse Resp BP Pulse Ox 05/18/18 08:54 83 05/18/18 08:00 97.5 F L 83 16 97 05/18/18 07:30 97.5 F L 83 16 106/53 L 97 05/18/18 04:00 97.8 F 80 18 112/58 L 98 Admit Weight 190 lb 11.2 oz Weight 177 lb 12.8 oz 05/17/18 05/18/18 05/19/18 06:59 06:59 06:59 Intake Total 1010 570 Output Total 0 Balance 1010 570 - Physical Examination General/Neuro: alert & oriented x3, NAD Neck: no JVD present Lungs: CTA, unlabored respirations Heart: RRR Abdomen: NT/ND Extremities: other: (no edema.) - Telemetry Telemetry Rhythm: NSR - Labs Result Diagrams: 05/15/18 05:20 05/15/18 05:20 Troponin/CKMB CK-MB (CK-2) 7.0 ng/mL (0-6.6) H* 05/10/18 20:46 Troponin I 2.656 ng/mL (< 0.028) H* 05/11/18 04:17 - Assessment/Plan 1. NSTEMI 2. LE cellulits 3. Hypotension, resolved. 4. ESRD on HD. 5. Multivessel CAD, left main equivalent. PLAN: - She is not wanting to have open heart surgery at this time. She states it would be very difficult to go through the recovery phase as she does not have a support system at home. She lives alone. She is not interested in going to [place] [facility] after surgery. She would like to have medical therapy alone and she may consider revascularization in the future. - Continue aspirin/statin/BB/ACEI. - May discharge home. - Will follow up with her in 1 month.
[2018-05-18 14:02] VITALS: BP 117/55; TEMP 98.5
--- NOTE | 2018-05-18 17:33 | PRG ---
DATE OF SERVICE: 05/18/2018 SUBJECTIVE: Patient was seen and examined at bedside and overnight events noted. Patient denies any shortness of breath or chest pain or palpitation. No history of nausea or vomiting or diarrhea or f ever or chills or cramps. OBJECTIVE: GENERAL: This is a well-built female in no apparent distress. VITAL SIGNS: Temperature 98.5, pulse 107, respiratory rate 18, blood pressure 117/55. HEENT: Atraumatic, normocephalic. Oral mucosa is moist. NECK: Supple. CARDIOVASCULAR: S1, S2 heard. Rate and rhythm regular. RESPIRATORY: Clear to auscultation. GASTROINTESTINAL: Abdomen is soft. MUSCULOSKELETAL: No tenderness. No edema. DERMATOLOGIC: No skin rash. NEUROLOGIC: Alert and awake and oriented x3. No focal neurologic deficits. Moving all the extremiti es. PSYCHIATRIC: Mood and affect normal. LABORATORY DATA: Not done today. ASSESSMENT AND PLAN: 1. End-stage renal disease. Continue on dialysis as tolerated. 2. Edema, controlled. 3. Hypertension, stable. 4. Anemia. Monitor hemoglobin. Plan is to continue on dialysis as tolerated.
== END 2018-05-18 14:10 | disposition home or self-care (01) | DRG 871 ==
LOC: ERS 19:14 → 2NO 05-11 01:10
PROVIDERS: ADMIT Hospitalist; ATTEND Hospitalist
PROC: 05H533Z Insertion of Infusion Device into Right Subclavian Vein, Percutaneous Approach (ICD-10-PCS; 2018-05-11)
PROC: B546ZZA Ultrasonography of Right Subclavian Vein, Guidance (ICD-10-PCS; 2018-05-11)
PROC: 05HN33Z Insertion of Infusion Device into Left Internal Jugular Vein, Percutaneous Approach (ICD-10-PCS; 2018-05-11)
PROC: B544ZZA Ultrasonography of Left Jugular Veins, Guidance (ICD-10-PCS; 2018-05-11)
PROC: 4A023N7 Measurement of Cardiac Sampling and Pressure, Left Heart, Percutaneous Approach (ICD-10-PCS; principal; 2018-05-17)
PROC: B211YZZ Fluoroscopy of Multiple Coronary Arteries using Other Contrast (ICD-10-PCS; 2018-05-17)
DX: A41.9 Sepsis, unspecified organism (principal); I21.4 Non-ST elevation (NSTEMI) myocardial infarction; N18.6 End stage renal disease; L03.116 Cellulitis of left lower limb; I50.32 Chronic diastolic (congestive) heart failure; I13.0 Hypertensive heart and chronic kidney disease with heart failure and stage 1 through stage 4 chronic kidney disease, or unspecified chronic kidney disease; T82.41XA Breakdown (mechanical) of vascular dialysis catheter, initial encounter; R60.9 Edema, unspecified; D64.9 Anemia, unspecified; Z99.2 Dependence on renal dialysis; I25.10 Atherosclerotic heart disease of native coronary artery without angina pectoris; I95.9 Hypotension, unspecified; E11.22 Type 2 diabetes mellitus with diabetic chronic kidney disease; E11.65 Type 2 diabetes mellitus with hyperglycemia; D63.1 Anemia in chronic kidney disease; E78.5 Hyperlipidemia, unspecified; E11.51 Type 2 diabetes mellitus with diabetic peripheral angiopathy without gangrene; I89.1 Lymphangitis; G25.81 Restless legs syndrome; M06.9 Rheumatoid arthritis, unspecified; K21.9 Gastro-esophageal reflux disease without esophagitis; E66.8 Other obesity; Z68.34 Body mass index [BMI] 34.0-34.9, adult; Y84.8 Other medical procedures as the cause of abnormal reaction of the patient, or of later complication, without mention of misadventure at the time of the procedure; Y92.9 Unspecified place or not applicable; Z89.512 Acquired absence of left leg below knee; E11.319 Type 2 diabetes mellitus with unspecified diabetic retinopathy without macular edema; L97.519 Non-pressure chronic ulcer of other part of right foot with unspecified severity; E87.5 Hyperkalemia
CPT/HCPCS: 36415; 36416; 71045; 76942; 80048; 80053; 80202; 82553; 83605; 83735; 83880; 84484; 85014; 85018; 85025; 85049; 85610; 85730; 87040; 90935; 93005; 93306; 93458; 93798; 93923; 93970; 96365; 96367; 99152; A4216; C1752; C1769; G0257; G0365; J0670; J0696; J1642; J1644; J1815; J2001; J2250; J2543; J2704; J2720; J2997; J3010; J3370; J7050

== ENCOUNTER 2018-06-17 12:33 | Outpatient (CLI) | payer MEDICARE ==
[2018-06-17] MEDS ORDERED: Iopamidol 370 76% 100 ML VIAL ONE (13:33)
== END 2018-06-17 12:34 | disposition home or self-care (01) ==
LOC: BICCT 12:33
PROVIDERS: ATTEND Internal Medicine Cardiovascular Disease
DX: I73.9 Peripheral vascular disease, unspecified (principal); I70.201 Unspecified atherosclerosis of native arteries of extremities, right leg; K80.20 Calculus of gallbladder without cholecystitis without obstruction; Z89.512 Acquired absence of left leg below knee

== ENCOUNTER 2018-08-02 12:45 | Inpatient (IN) | payer MEDICARE ==
[~2018-08-02 12:45] MED LIST: Heparin 10,000 UNITS/ 10 ML VIAL ONE; ISOVUE-370 76%-LOCM 1 ML ONE
[2018-08-02] MEDS ORDERED: Ondansetron HCl/PF 4 MG/2 ML Vial ONE (13:32)
[2018-08-02 13:46] LABS: #Eosinphils 0.1 thou/uL (0.0-0.7); #Lymphocytes 1.3 thou/uL (1.20-3.40); #Monocytes 0.3 thou/uL (0.11-0.59); #Neutrophils 8.6 thou/uL (1.40-6.50); %Basophils 0.4 % (0.0-1.0); %Eosinophils 1.1 % (0.0-10.0); %Lymphocytes 12.8 % (21.0-51.0); %Monocytes 2.9 % (0.0-10.0); %Neutrophils 82.8 % (42.0-75.0); Hemoglobin 9.9 g/dL (12.0-16.0); Mean Corpuscular HGB CONC 32.1 g/dL (32.0-36.0); Mean Corpuscular Hemoglobin 33.6 pg (27.0-31.0); Mean Platelet Volume 6.9 fL (7.4-10.4); Platelet Count 346 thou/uL (130-400); RBC Distribution Width 18.8 % (11.5-14.5); Red Blood Cell (RBC) Count 2.95 mill/uL (4.20-5.40); White Blood Cell (WBC) Count 10.4 thou/uL (4.8-10.8)
[2018-08-02 14:12] LABS: ALT (SGPT) 18 U/L (8-55); AST (SGOT) 57 U/L (5-34); Albumin 3.4 g/dL (3.5-5.0); Alkaline Phosphatase 111 U/L (40-150); Anion Gap 25 mmol/L (10-20); BUN (Urea Nitrogen) 53 mg/dL (9.8-20.1); Bilirubin, Total 0.2 mg/dL (0.2-1.2); CKMB 13.3 ng/mL (0-6.6); Calc. Creatinine Clearance 0 mL/min (70-130); Calcium 9.2 mg/dL (7.8-10.44); Carbon Dioxide 26 mmol/L (22-29); Chloride 95 mmol/L (98-107); Estimated GFR-MDRD 5; Globulin 4.4 g/dL (2.4-3.5); Glucose 58 mg/dL (70-105); Potassium 5.2 mmol/L (3.5-5.1); Protein, Total 7.8 g/dL (6.0-8.3); Sodium 141 mmol/L (136-145)
[2018-08-02] MEDS ORDERED: Dextrose 50% Abboject 50 ML SYRINGE ONE ×3 (14:12→18:37)
[2018-08-02 14:32] LABS: Analyzer IN Cardio ER; Base Excess (BEa) 1.5 mEq/L (-2.0 to +3.0); CO2 Tension 40.6 mmHg (35.0-45.0); Calcium, Ionized 1.03 mmol/L (1.12-1.30); Carboxyhemoglobin (COHb) 0.4 gm% (0.0-3.0); Hemoglobin (Hb) 9.9 g/dL (12.0-16.0); O2 Tension (PaO2) 99.8 mmHg (80.0-100.0); Potassium - ABG Lab 3.69 mmol/L (3.70-5.30); pH, Arterial 7.43 (7.35-7.45)
[2018-08-02 14:33] LABS: Puncture Site LR
--- NOTE | 2018-08-02 14:44 | RAD ---
PORTABLE CHEST: HISTORY: Syncopal episode. COMPARISON: 05/11/2018 FINDINGS: Heart size is enlarged. A left-sided HemoSplit catheter remains in position. Lungs are clear of inf iltrates. No signs of failure. IMPRESSION: 1. Cardiomegaly. 2. No acute changes. POS: [facility]
[2018-08-02] MEDS ORDERED: Piperacillin/Tazobactam 3.375 GM VIAL ONE (15:30)
--- NOTE | 2018-08-02 15:43 | CT ---
CT ANGIO OF CHEST PERFORMED WITH IV CONTRAST ENHANCEMENT WITH 3D RECONSTRUCTIONS: Date: 08/02/18 HISTORY: Syncopal episode today. FINDINGS: The lungs are clear of infiltrative process. There are some atelectatic changes in the lung bases. Th ere is some mild mediastinal adenopathy. There are multiple small prevascular nodes, much more bill us than typically seen, but subcentimeter in size, slight larger right paratracheal node measuring 11 .0 mm, and small hilar lymph nodes. These changes may be reactive in nature. There are some chronic a ppearing interstitial lung changes seen in the bases. The thoracic aorta is normal in caliber. There is fairly good pulmonary artery opacification obtained , and no CT evidence for pulmonary embolus. There are some moderate coronary artery calcifications noted. The visualized liver parenchyma is unremarkable. Right and left adrenal glands are normal. IMPRESSION: 1. Small chronic-appearing lung change, also minimal ground-glass opacity in the lung haile. The po ssibility that there is some minimal element of fluid overload would be a consideration. Interstitial changes in the bases appear to be largely chronic in nature. 2. Some mild mediastinal adenopathy, nonspecific, but given the small size of the nodes, probably re active. There are also small hilar lymph nodes present. 3. No CT evidence for pulmonary embolus. 4. Fairly extensive vascular calcifications. Moderate coronary artery calcifications noted. POS: [facility]
[2018-08-02] MEDS ORDERED: Albumin 25% 25 GM/100 ML BOT IVPB SCH (16:45)
[2018-08-02] MEDS ORDERED: Heparin 1,000 UNITS/ML VIAL ONE (17:51)
[2018-08-02 18:39] LABS: Lactic Acid 1.8 mmol/L (0.5-2.2)
[2018-08-02 18:51] LABS: Troponin I 4.731 ng/mL (< 0.028)
[2018-08-02] MEDS ORDERED: Dextrose 5% in Water 1,000 ML IV PRN (19:49)
[2018-08-02] MEDS ORDERED: Dextrose 50% Abboject 50 ML SYRINGE IVP PRN (19:49)
[2018-08-02] MEDS: Dextrose 10% in Water 1,000 ML IV SCH (19:53)
[2018-08-02] MEDS: Norepinephrine 8 MG/250 ML BAG IVPB PRN (19:56)
--- NOTE | 2018-08-02 20:07 | RAD ---
AP CHEST: 08/02/18 HISTORY: Assess central line. COMPARISON: 08/02/18 at 12:51 p.m. FINDINGS/IMPRESSION: A central line is again seen in the left jugular with tip overlying the right atrium. There is evidence of mild vascular and interstitial congestion similar to the CT findings. No conflue nt infiltrate. No pneumothorax. POS: [facility]
[2018-08-02 20:58] LABS: Troponin I 5.868 ng/mL (< 0.028)
[2018-08-02 21:28] LABS: Hemoglobin 9.8 g/dL (12.0-16.0); Platelet Count 381 thou/uL (130-400)
[2018-08-02] MEDS: Heparin 10,000 UNITS/ 10 ML VIAL SLOW IVP SCH (21:53)
[2018-08-02] MEDS: Heparin 25,000 units/D5W 500 ML IVPB SCH (21:53)
[2018-08-02] MEDS ORDERED: Vancomycin HCl 1 GM in Premix Bag 1 BAG IVPB PRN (22:00)
[2018-08-02] MEDS ORDERED: Vancomycin HCl 1.25 GM in Sodium Chloride 0.9% 250 ML 250 ML IVPB PRN (22:01)
[2018-08-02] MEDS ORDERED: Vancomycin HCl 500 MG in Sodium Chloride 0.9% 100 ML IVPB PRN (22:02)
[2018-08-02] MEDS ORDERED: HOLD VANCOMYCIN FOR LEVEL >20 FS PRN (22:02)
[2018-08-02] MEDS: Albumin 25% 25 GM/100 ML BOT IVPB SCH (22:10)
[2018-08-02 23:14] LABS: HBSAg Index 0.21 S/CO (0-0.99); Hep B Surf Ag Non-Reactive S/CO (NonReactive)
[2018-08-03 01:18] LABS: Troponin I 8.376 ng/mL (< 0.028)
[2018-08-03] MEDS: Dextrose 10% in Water 1,000 ML IV SCH ×2 (01:43→12:10)
--- NOTE | 2018-08-03 02:04 | CON ---
DATE OF CONSULTATION: 08/02/2018 HISTORY OF PRESENT ILLNESS: Ms. Hedrick is a woman being admitted to the ICU for syncope. She had been given ketamine in an attempt to place a central line, so, she is unable to give me a history. I was in the room. She appeared comfortable with facemask oxygen on. She apparently missed dialysis . There is a report that she has heart surgery scheduled for later this week. I did discuss this wi Dr. Spaulding. He did not recognize her name. PAST MEDICAL HISTORY: Remarkable for, 1. Diabetes. 2. Lipid disorder. 3. Hypertension. 4. History of BKA. 5. History of end-stage renal disease. 6. History of hand surgery. 7. History of dialysis access procedures. SOCIAL HISTORY: Apparently, she is a nonsmoker and nondrinker. ALLERGIES: She reports GABAPENTIN and GENTAMICIN allergies. MEDICATIONS: Prior to admission, she was on metoprolol, simvastatin, amitriptyline, torsemide, and i nsulin. Not really clear why she is on the torsemide. PHYSICAL EXAMINATION: VITAL SIGNS: In the emergency room, blood pressure is in the 80s, heart rate was 110, respiratory ra te was in the low 20s. HEENT: Pupils are reactive. Sclerae are anicteric. NECK: She had puncture dias in the right neck, where a central line had been attempted. LUNGS: Clear. HEART: Regular rhythm. No S3. ABDOMEN: Soft and nontender. EXTREMITIES: BKA site in the left was healed. Right lower extremity was fairly unremarkable. LABORATORY DATA: White count 10.4, hemoglobin 9.9, platelets 346. Sodium 141, potassium 5.2, chlori de 95, bicarbonate 26, BUN 53, creatinine 8.04, glucose is 58. PH at 2:30 was 7.43, pCO2 of 40, pO2 of 99. IMPRESSION: Reported syncope with unclear source. Obviously, in a dialysis patient, sepsis would be #1 in the differential. She needs volume resuscitation and monitoring of pulmonary status. I will be happy to follow with th e other physicians. empiric antibiotics will be started. She will be admitted to the Critical Care Unit when a bed becomes available. Critical care time, 30 minutes.
--- NOTE | 2018-08-03 02:51 | CON ---
DATE OF CONSULTATION: 08/02/2018 CONSULTING PHYSICIAN: Dr. Archuleta. REASON FOR CONSULTATION: End-stage renal disease evaluation and care. REASON FOR ADMISSION: Syncope. HISTORY OF PRESENT ILLNESS: This is a 53-year-old female with history of end-stage renal disease, hy pertension, coronary artery disease, type 2 diabetes, hyperlipidemia, who came to the hospital with s yncope and is being admitted, etiology not clear, possible sepsis. The patient was found to be hypot ensive and hypoglycemic, is being admitted. She is admitted to ICU. She is due for dialysis today. She gets dialysis Wednesday, and Wednesday. Could not get dialysis today and Nephrology is co nsulted for maintenance hemodialysis. No fever, no chills. The patient complains of mild shortness of breath, also reports of vomiting. No abdominal pain. PAST MEDICAL HISTORY: Positive for end-stage renal disease, type 2 diabetes, coronary artery disease , hyperlipidemia, hypertension. PAST SURGICAL HISTORY: Hand surgery, amputation of BKA, orthopedic surgery and dialysis access place ment. HOME MEDICATIONS: Metoprolol, simvastatin, amitriptyline, torsemide and Novolin R. ALLERGIES: GABAPENTIN and GENTAMICIN. SOCIAL HISTORY: No smoking, alcohol, or illicit drug abuse. FAMILY HISTORY: No history of any kidney disease. REVIEW OF SYSTEMS: The following complete review of systems was negative, unless otherwise mentioned in the HPI or below: Constitutional: Weight loss or gain, ability to conduct usual activities. Sk in: Rash, itching. Eyes: Double vision, pain. ENT/Mouth: Nose bleeding, neck stiffness, pain, te nderness. Cardiovascular: Palpitations, dyspnea on exertion, orthopnea. Respiratory: Shortness of breath, wheezing, cough, hemoptysis, fever or night sweats. Gastrointestinal: Poor appetite, abdom inal pain, heartburn, nausea, vomiting, constipation, or diarrhea. Genitourinary: Urgency, frequenc y, dysuria, nocturia. Musculoskeletal: Pain, swelling. Neurologic/Psychiatric: Anxiety, depressio n. Allergy/Immunologic: Skin rash, bleeding tendency. PHYSICAL EXAMINATION: GENERAL: This is a well-built female, in no apparent distress. VITAL SIGNS: Temperature 98.2, pulse 105, respiratory rate , blood pressure 80/61. HEENT: Atraumatic, normocephalic. Oral mucosa is moist. NECK: Supple, no masses. CARDIOVASCULAR: S1, S2 heard. Rate and rhythm regular. RESPIRATORY: Clear. GASTROINTESTINAL: Abdomen is soft. MUSCULOSKELETAL: 1+ edema. DERMATOLOGIC: No skin rash. NEUROLOGIC: Alert and awake. PSYCHIATRIC: Normal mood and affect. LABORATORY DATA: Hemoglobin is 9.9. Potassium is 5.2, BUN is 53, creatinine . ASSESSMENT AND PLAN: 1. End-stage renal disease. We will have dialysis today. The patient is hypotensive, high risk for complications. We will have dialysis without any ultrafiltration. 2. Anemia. We will monitor. 3. Hyperkalemia. 4. Edema, controlled. 5. Hypoalbuminemia. 6. Hypotension. Plan is to have dialysis as tolerated. Recommend blood cultures from dialysis port and if infected, might need replacement. The patient currently have a femoral dialysis catheter, which was placed in the ER. Thank you for the consult. We will follow.
[2018-08-03] MEDS: Piperacillin/Tazobactam 2.25 GM in Sodium Chloride 0.9% 100 ML IVPB SCH ×2 (03:08→15:47)
[2018-08-03 04:39] LABS: #Eosinphils 0.2 thou/uL (0.0-0.7); #Lymphocytes 2.1 thou/uL (1.20-3.40); #Monocytes 0.5 thou/uL (0.11-0.59); #Neutrophils 7.5 thou/uL (1.40-6.50); %Basophils 0.4 % (0.0-1.0); %Eosinophils 1.7 % (0.0-10.0); %Monocytes 4.9 % (0.0-10.0); %Neutrophils 73.1 % (42.0-75.0); Hemoglobin 8.9 g/dL (12.0-16.0); Mean Corpuscular HGB CONC 31.2 g/dL (32.0-36.0); Mean Corpuscular Hemoglobin 33.8 pg (27.0-31.0); Mean Platelet Volume 6.5 fL (7.4-10.4); Platelet Count 328 thou/uL (130-400); RBC Distribution Width 19.2 % (11.5-14.5); Red Blood Cell (RBC) Count 2.63 mill/uL (4.20-5.40); White Blood Cell (WBC) Count 10.3 thou/uL (4.8-10.8)
[2018-08-03 04:59] LABS: Anion Gap 13 mmol/L (10-20); BUN (Urea Nitrogen) 28 mg/dL (9.8-20.1); Calc. Creatinine Clearance 16 mL/min (70-130); Calcium 9.1 mg/dL (7.8-10.44); Carbon Dioxide 30 mmol/L (22-29); Chloride 97 mmol/L (98-107); Estimated GFR-MDRD 9; Glucose 82 mg/dL (70-105); Potassium 3.3 mmol/L (3.5-5.1); Sodium 137 mmol/L (136-145)
--- NOTE | 2018-08-03 05:44 | PDOC.EVN ---
Event Note - Event Note Event Note: h&p dictation [id number]
--- NOTE | 2018-08-03 08:40 | PRG ---
Patient Name: MIMI GARDNER Date of service: 08/03/2018 Subjective: Patient was seen and examined at bedside and overnight events noted. Patient denies any shortness of breath or chest pain or palpitation. No history of nausea or vomiting or diarrhea or fever or chills or cramps. Objective: General: This is a well-built female in no apparent distress. Vital signs: Temperature 98.4, pulse 109, respiratory rate 18, blood pressure 101/73. HEENT: Atraumatic, normocephalic. Oral mucosa is moist. Neck: Supple. Cardiovascular: S1 S2 heard. Rate and rhythm regular. Respiratory: Clear to auscultation. Gastrointestinal: Abdomen is soft. Musculoskeletal: No tenderness. No edema. Dermatologic: No skin rash. Neurologic: Alert and awake and oriented X3. No focal neurologic deficits. Moving all the extremities. Psychiatric: Mood and affect normal. LABORATORY DATA: Potassium is 3.3, BUN 70, creatinine is 5.2. ASSESSMENT AND PLAN: 1. End-stage renal disease. We will continue dialysis Wednesday, , and Wednesday. 2. Hypotension. Seems like better. 3. Hyperkalemia, better. 4. Edema, remove fluid if tolerated. Currently, hypotensive. Continue pressors. 5. Possible sepsis. Follow up cultures. Might need to exchange of dialysis catheter if blood cultu re is positive. 6. Hypoalbuminemia. 7. Anemia, chronic. 8. Cardiorenal syndrome. We will continue on dialysis as tolerated.
--- NOTE | 2018-08-03 08:52 | PDOC.PN ---
- Subjective Encounter Start Date: 08/03/18 Encounter Start Time: 08:51 Subjective: nsg notes rev, adriane ovn, pt no new c/o today -: is upset that her friend, who is a nurse, who found her on the floor at [facility]: e and brought her to the ER, is now in trouble - Objective Resuscitation Status: Resuscitation Status FULL:Full Resuscitation Vital Signs & Weight: Vital Signs (12 hours) Temp Pulse Resp Pulse Ox 08/03/18 08:00 98.4 F 08/03/18 07:02 100 08/03/18 06:58 110 H 19 100 08/03/18 03:00 98.1 F 08/02/18 23:33 115 H 20 100 08/02/18 23:00 98.7 F Weight Weight 178 lb 2.136 oz Most Recent Monitor Data Heart Rate from ECG 108 NIBP 108/80 NIBP BP-Mean 89 Respiration from ECG 21 SpO2 93 I&O: 08/02/18 08/03/18 08/04/18 06:59 06:59 06:59 Intake Total 1006 Output Total 0 Balance 1006 0 Result Diagrams: 08/03/18 04:02 08/03/18 04:02 Additional Labs: Accuchecks 08/03/18 08/03/18 08/02/18 08:17 01:16 22:55 POC Glucose 118 H 88 94 08/02/18 08/02/18 08/02/18 20:53 20:18 19:37 POC Glucose 71 41 L* 52 L* 08/02/18 08/02/18 18:30 15:18 POC Glucose 47 L* 69 L Phys Exam - Physical Examination Constitutional: NAD lying in hospital bed HEENT: moist MMs Respiratory: no wheezing, no rales, no rhonchi, clear to auscultation bilateral Cardiovascular: RRR, no significant murmur, no rub soft heart tones, pulses 2+ b/l UE, no pitting pedal edema Gastrointestinal: soft, non-tender, no distention Musculoskeletal: no edema, pulses present Neurological: moves all 4 limbs moves RLE amputation stump Psychiatric: normal affect, A&O x 3 Dx/Plan - Plan cont current plan of care * hypotension * continue with pressor support prn * septic/ infectious etiology vs cardiac etiology for hypotension * apprec cardiology, critical care c/s * pending repeat ECHO * cont empiric vanc, pip-marjorie d2, renally dosed by pharmacy * * ESRD * apprec nephrology c/s * continue serial BMP, monitor UOP * * NSTEMI * elev troponin, known hx of CAD - was orig planned for CABG tmrrw in the [facility] * ECHO as per above * continue heparin gtt * * hypoglycemia, improved * continue to monitor glc, adjust D10 IVF as needed * hx of IDDM, d/c home insulin - concern that hypoglycemia is related to underlying active medical issues * * diet: currently NPO, but may allow for cardiac diabetic renal diet if no procedures planned * activity: as johnnie * dvt ppx: heparin (as above) * * d/w pt, nsg, Dr. Vizcarra at bedside
[2018-08-03] MEDS ORDERED: Vancomycin Sliding Scale 1 EACH FS SCH (09:00)
--- NOTE | 2018-08-03 10:03 | HP ---
CHIEF COMPLAINT: Syncope. HISTORY OF PRESENT ILLNESS: This is a 53-year-old female with a known history of coronary artery dis ease with planned CABG later this week, end-stage renal disease on dialysis, who presented with a chi ef complaint of syncope while packing her bags for her upcoming surgery. She reports a sensation of generalized weakness, easy fatigability, and dizziness. She also reports a history of feeling genera lly poor for the preceding 2-3 weeks accompanied by intermittent nausea. The patient denies any othe r prior episodes of similar symptoms. REVIEW OF SYSTEMS: As per HPI. Constitutional: Denies any significant weight loss or gain over the last few months, denies any fevers or chills in the last 2 weeks. HEENT: Dizziness and lightheaded ness as noted above. Syncopal episode as noted above without loss of consciousness. Cardiovascular: No overt chest pain, chest pressure, left-sided arm numbness or tingling. Respiratory: The patien t does endorse some shortness of breath, particularly with exertion. No cough. No recent upper resp iratory infection. Gastrointestinal: No vomiting, nausea, epigastric discomfort. Denies any diarrh ea, constipation. Genitourinary: Denies any change in urinary color, quantity or quality. Of note, the patient makes very scanty urine. The patient does have a dialysis port in place. Musculoskelet al: Denies any new myalgias or arthralgias, just generalized easy fatigability without to her symptoms. PAST MEDICAL HISTORY: As per above. 1. End-stage renal disease, on hemodialysis. 2. Insulin-dependent diabetes, type 1. 3. Hyperlipidemia. 4. Hypertension. 5. Coronary artery disease. PAST SURGICAL HISTORY: 1. Status post left lower extremity BKA. 2. Status post hemodialysis port, left chest wall. 3. Status post nonfunctioning fistula to the right arm. 4. Status post eye surgery. 5. Status post left hand surgery. HOME MEDICATIONS: Please see the EMR for full details. The patient's current home regimen appears t o include the following: Insulin regular sliding scale, torsemide 100 mg p.o. at bedtime, amitriptyl ine 20 mg p.o. at bedtime, hydroxychloroquine 200 mg p.o. q.3 hours, calcium carbonate 1000 mg p.o. q .4 hours p.r.n., aspirin 325 mg p.o. daily, NPH or Humulin insulin 30 units subcu b.i.d., simvastatin 10 mg p.o. at bedtime, Renvela 800 mg p.o. t.i.d., omeprazole 40 mg p.o. daily, ropinirole 2 mg p.o. b.i.d. ALLERGIES: Include GABAPENTIN, GENTAMICIN, and PLASTIC TAPE. FAMILY HISTORY: The patient endorses a positive family history of cancer. SOCIAL HISTORY: Denies any active tobacco, alcohol or illicit drug use. PHYSICAL EXAMINATION: GENERAL: The patient is awake, conversant, pleasant, in no acute distress, seated in the ER stretche r. HEENT: Normocephalic, atraumatic. Slightly dry mucous membranes. Equal ocular motions are intact. CARDIOVASCULAR: S1, S2. Pulses 1+ bilateral upper extremities. Trace bilateral pitting pedal edema . No overt murmurs, rubs or gallops. Soft heart tones. RESPIRATORY: No conversational dyspnea. Marginal air movement. No overt wheezes, rales or rhonchi. ABDOMEN: Obese, positive bowel sounds, soft, nontender to palpation. MUSCULOSKELETAL: Moving all 4 extremities. LABORATORY DATA AND IMAGING: WBC 10.4, hemoglobin 9.9, hematocrit 30.9, platelets 346. Initial D-di alethea 0.66. ABG: A pH of 7.43, pCO2 of 40.6, pO2 is 99.8. Sodium 141, chloride 95, bicarbonate 26, B UN 53, creatinine 8.04, glucose 58, lactic acid 2.8 with a follow up lactic acid of 1.8, calcium 9.2, total bilirubin 0.2, AST 57, ALT 18, alkaline phosphatase 111. Troponin initially was 3.06, follow up troponin is 4.731, albumin 3.4. On 08/02/2018, CTA of the chest impression "Small chronic appear ing lung change, also minimal ground glass opacity in the lung haile. The possibility that there is some minimal element of fluid overload would be a consideration. Interstitial changes in the bases appear to be largely chronic in nature. Some mild mediastinal adenopathy, nonspecific, but given the small size of the nodes, probably reactive. There are also small hilar lymph nodes present. No CT evidence for pulmonary embolus." ASSESSMENT AND PLAN: This is a 53-year-old female with a primary chief complaint of syncope. 1. Syncope in the setting of hypotension, systolic blood pressure in the 70s-90s. Suspect that her hypotension is the etiology of the patient's syncopal episode. However, the etiology of the hypotens ion is little bit more difficult to elicit. 2. Hypotension. The patient appears to grossly be in shock. The patient has received 1 liter IV fl uid in the ER, we will continue with IV fluids including D5 and possibly D10 secondary to the patient 's hypoglycemia. Pressor, Levophed preferred as initial agent, if the patient's hypotension persists . I appreciate critical care consultation. Concern also if the patient does not have septic shock o r cardiac etiology. The patient has received albumin in the emergency department as well. To consid er more doses of albumin. 3. Unknown history of coronary artery disease, elevated troponins consistent with an NSTEMI. Contin ue with hemodynamic support as mentioned above. Start heparin. I appreciate Cardiology consultation . 4. End-stage renal disease on hemodialysis. I appreciate Nephrology consultation. Continue to clos aftab monitor with serial BNP. Dialysis as determined by Nephrology. 5. Concern for sepsis as etiology of the patient's hypotension, shock. However, the patient does no t have a leukocytosis. Lactic acid on presentation has cleared with fluid resuscitation. The patien t has been given empiric vancomycin and piperacillin/tazobactam with cultures drawn. We will continu e to closely monitor. 6. Insulin-dependent diabetes. The patient has persistent hypoglycemia. Unclear if this is a react ion to the patient's home insulin in the setting of significant nausea and vomiting versus secondary to the patient's shock itself. We will consider stress dose steroids for this patient and continue t o closely monitor blood sugars. Escalate dextrose containing IV fluids if needed. 7. Diet: N.p.o. after midnight. 8. Activity: As tolerated. 9. Deep venous thrombosis prophylaxis: Full anticoagulation with heparin for the NSTEMI as noted ab ove. 10. Code status: The patient has requested to be FULL CODE at this point in time. I am deeming her able to be her own medical decision maker at the time of admission.
[2018-08-03] MEDS: Aspirin 325 mg Enteric Coated Tablet PO SCH (10:18)
[2018-08-03] MEDS: Sevelamer Carbonate 800 MG TAB PO SCH ×3 (10:18→18:24)
[2018-08-03] MEDS: rOPINIRole HCl 2 MG TAB PO SCH ×2 (10:18→20:34)
[2018-08-03] MEDS ORDERED: Sodium Chloride 0.9% 500 ML IVPB SCH (10:45)
--- NOTE | 2018-08-03 13:36 | CON ---
DATE OF CONSULTATION: 08/03/2018 REASON FOR CONSULTATION: Elevated troponin. HISTORY OF PRESENT ILLNESS: Mrs. Hedrick is a very pleasant 53-year-old white female, who comes to the hospital for syncope. In the last few weeks, she has been noticing that sometimes her blood sug ars go as low as in the 20s and she feels terrible. She actually was found on the floor and brought into the hospital for this. She has not been feeling well in the last 2-3 weeks and she had a lot of purulent material coming out of her dialysis catheter site. She has a history of severe multivessel diffuse coronary artery disease, which she had been evaluated for coronary artery bypass grafting an d she was scheduled to have a CABG actually on the of this month, which is tomorrow, by Dr. Evelyn britton in [place], as she did not want to have it here in the city, as she lives here alone, but she had help with some friends in [place] and they offered to be with her after her surgery as long as she had her surgery locally. She will obviously miss this tomorrow. She was hypotensive on admission and was placed on Levophed. Currently, she is feeling better. She denies any chest pain, tightness, pressure. During her initial evaluation, troponins were drawn, which were elevated, so Ca rdiology is being consulted for this. PAST MEDICAL HISTORY: 1. End-stage renal disease, on hemodialysis. 2. Type 1 diabetes. 3. Hyperlipidemia. 4. Hypertension. 5. Coronary artery disease, multivessel, diffuse disease, needing bypass. PAST SURGICAL HISTORY: 1. Left BKA. 2. Left chest wall hemodialysis port. 3. Right arm fistula, which is now not functioning. 4. Eye surgery. 5. Hand surgery. OUTPATIENT MEDICATIONS: 1. Insulin. 2. Torsemide 100 mg a day. 3. Amitriptyline 10 mg at bedtime. 4. Hydroxychloroquine 200 mg p.o. q.3 hours. 5. Calcium carbonate 1000 mg q.4 hours. 6. Aspirin 325 a day. 7. NPH insulin. 8. Simvastatin 10 mg at bedtime. 9. Renvela. 10. Omeprazole. 11. Ropinirole 2 mg p.o. b.i.d. ALLERGIES: GABAPENTIN, GENTAMICIN, and PLASTIC TAPE. FAMILY HISTORY: Noncontributory. REVIEW OF SYSTEMS: A 12-point review of systems was done and is all negative unless stated in histor y of present illness. PHYSICAL EXAMINATION: VITAL SIGNS: Temperature 98.4, pulse 100, respiratory rate 19, satting 96% on 2 liters, blood pressu re 127/52, this is on 5 mcg of Levophed. GENERAL: Awake, alert, oriented x3, in no distress. HEENT: Normocephalic, atraumatic. NECK: Supple. LUNGS: Clear. CARDIOVASCULAR: S1 and S2, no S3 or S4, no murmurs. ABDOMEN: Soft. Positive bowel sounds. EXTREMITIES: No edema. SKIN: Warm and dry. LABORATORY WORK: Reviewed. CBC with a white count of 10.4, hemoglobin 9.9, hematocrit of 30, and pl atelet count of 346. Coags: D-dimer was a little bit high. ABG was reviewed. Chemistries with a p otassium of 3.3, BUN of 20, creatinine 5.22. Triglycerides of 83, cholesterol total of 110, LDL of 5 6, HDL of 37. Her troponin went from 3 to 4.7, then 5.8, then 7.9, and now 8.3. Blood cultures are negative so far. CT of the chest showed no evidence of pulmonary embolism. There is mediastinal adenopathy and chroni c-appearing lung changes. Echocardiogram was reviewed. Her EF is significantly reduced from the last one, it is at about 25%-3 0%. ASSESSMENT: 1. [id number] myocardial infarction. 2. Possible septic shock. 3. Possible infected tunneled catheter for dialysis access. 4. End-stage renal disease. 5. Multivessel coronary artery disease. 6. New onset dilated cardiomyopathy, likely ischemic. 7. Peripheral vascular disease, status post left [id number] amputation. PLAN: 1. Continue heparin drip for now. This is unlikely to be a primary cardiac event. She probably did have a non-STEMI in the sense that she was hypotensive and it made her myocardium to be hypoperfused given her severe multivessel disease, and this may have made her troponins to go up. Her reduction in LV function is global and her troponin level is not high as it should be with the amount of loss o f the myocardial function that we would expect. I would treat conservatively for now. This may be s epsis, what her main issue is. I would anticoagulate for a total of 48 hours, wean off the Levophed as tolerated. I do think a repeat catheterization will change my management at this time, as her art eries were not stentable. 2. Once her blood pressure gets better, we will consider adding some CHF medications. We will consi joaquín beta shira and MELO inhibitor once her blood pressure is higher and she is off of Levophed. We will also consider other evidence-based therapies. Thank you for letting us participate in the care of your patient. We will follow.
[2018-08-03] MEDS: Calcium Carbonate 500 MG ChewTAB PO PRN ×2 (16:08→20:33)
[2018-08-03] MEDS: Ondansetron HCl/PF 4 MG/2 ML Vial IVP PRN ×2 (16:09→20:13)
[2018-08-03] MEDS: Insulin Regular 300 UNITS/3 ML VIAL SC PRN (16:14)
--- NOTE | 2018-08-03 17:58 | PRG ---
DATE OF SERVICE: 08/03/2018 SUBJECTIVE: Ms. Hedrick is more alert today. She is in no distress. She is complaining of hurtin g all over. PHYSICAL EXAMINATION: VITAL SIGNS: Blood pressure 132/80, heart rate is 106, respiratory rate is 20, oximetry is 95% on ro om air. LUNGS: Clear anteriorly. HEART: Regular rhythm. ABDOMEN: Soft. EXTREMITIES: Without significant edema. Her stump is well healed on the left. LABORATORY DATA: White count 10.3, hemoglobin 8.9, platelets 328. Sodium 137, potassium 3.3, chlori de 97, bicarbonate 30, BUN 28, creatinine 5.22. Blood cultures are negative so far. IMPRESSION: Status post hypotension, unclear etiology. Ejection fraction 25%-30% by echo. She is tentatively on schedule for elective coronary bypass grafting in the [place]. It is being d one and will discuss with family, but this is now on hold. She will continue supportive care in the ICU. She will be gently hydrated as needed and hopefully we aned off pressors. I doubt any of this is adrenal insufficiency mediated, but her cortisol level nee ds to be checked since she is still requiring pressors today.
[2018-08-03] MEDS: Heparin 10,000 UNITS/ 10 ML VIAL SLOW IVP SCH (18:07)
[2018-08-03] MEDS: Simvastatin 20 MG TAB PO SCH (20:33)
[2018-08-03] MEDS: Hydroxychloroquine Sulfate 200 MG TAB PO SCH (20:34)
[2018-08-04] MEDS: Heparin 25,000 units/D5W 500 ML IVPB SCH ×2 (00:03→21:38)
[2018-08-04] MEDS: Calcium Carbonate 500 MG ChewTAB PO PRN ×3 (00:22→12:25)
[2018-08-04] MEDS: Insulin Regular 300 UNITS/3 ML VIAL SC PRN ×3 (00:54→12:29)
[2018-08-04] MEDS: Albumin 25% 25 GM/100 ML BOT IVPB SCH (03:00)
[2018-08-04] MEDS: Piperacillin/Tazobactam 2.25 GM in Sodium Chloride 0.9% 100 ML IVPB SCH ×2 (06:33→18:44)
[2018-08-04 07:03] LABS: Hemoglobin 8.2 g/dL (12.0-16.0); Platelet Count 268 thou/uL (130-400)
[2018-08-04 07:41] LABS: Vancomycin, Trough 11.8 ug/mL
[2018-08-04] MEDS: Aspirin 325 mg Enteric Coated Tablet PO SCH (07:41)
[2018-08-04] MEDS: Sevelamer Carbonate 800 MG TAB PO SCH ×3 (07:41→18:44)
--- NOTE | 2018-08-04 09:38 | PRG ---
Patient Name: MIMI GARDNER Date of service: 08/04/2018 Subjective: Patient was seen and examined at bedside and overnight events noted. Patient denies any shortness of breath or chest pain or palpitation. No history of nausea or vomiting or diarrhea or fever or chills or cramps. Objective: General: This is a well-developed female in no apparent distress. Vital signs: Temperature 97.8, pulse 94, respiratory rate 18, blood pressure 114/56. HEENT: Atraumatic, normocephalic. Oral mucosa is moist. Neck: Supple. Cardiovascular: S1 S2 heard. Rate and rhythm regular. Respiratory: Clear to auscultation. Gastrointestinal: Abdomen is soft. Musculoskeletal: No tenderness. No edema. Dermatologic: No skin rash. Neurologic: Alert and awake and oriented X3. No focal neurologic deficits. Moving all the extremi ties. Psychiatric: Mood and affect normal. LABORATORY DATA: Not done today. ASSESSMENT AND PLAN: 1. End-stage renal disease, continue on hemodialysis. 2. Cirrhosis. 3. Hyperkalemia, better. 4. Edema. 5. Anemia. 6. Cardiorenal syndrome. Follow up blood cultures. We will continue dialysis as tolerated.
[2018-08-04 09:46] LABS: Anion Gap 24 mmol/L (10-20); BUN (Urea Nitrogen) 37 mg/dL (9.8-20.1); Calc. Creatinine Clearance 0 mL/min (70-130); Calcium 9.4 mg/dL (7.8-10.44); Carbon Dioxide 20 mmol/L (22-29); Chloride 95 mmol/L (98-107); Estimated GFR-MDRD 6; Glucose 221 mg/dL (70-105); Potassium 4.5 mmol/L (3.5-5.1); Sodium 134 mmol/L (136-145)
[2018-08-04] MEDS: Amiodarone HCl 450 MG, Admixture Fee 1 EACH in Dextrose 5% in Water 250 ML IVPB SCH ×2 (09:47→18:09)
[2018-08-04] MEDS: rOPINIRole HCl 2 MG TAB PO SCH ×2 (09:52→21:29)
[2018-08-04] MEDS: Vancomycin HCl 750 MG in Sodium Chloride 0.9% 250 ML 250 ML IVPB PRN (18:12)
--- NOTE | 2018-08-04 18:22 | PDOC.PN ---
- Subjective Encounter Start Date: 08/04/18 Encounter Start Time: 10:00 Pt seen for followup re: syncope. Denies chest pain, shortness of breath. - Objective Resuscitation Status: Resuscitation Status FULL:Full Resuscitation MAR Reviewed: Yes Vital Signs & Weight: Vital Signs (12 hours) Temp Pulse Ox 08/04/18 16:00 97.8 F 08/04/18 12:00 98.1 F 08/04/18 08:00 95 08/04/18 07:00 97.8 F Weight Weight 3.005 oz Most Recent Monitor Data Heart Rate from ECG 90 NIBP 104/70 NIBP BP-Mean 81 Respiration from ECG 26 SpO2 97 I&O: 08/03/18 08/04/18 08/05/18 06:59 06:59 06:59 Intake Total 1006 2552.2 689 Output Total 200 Balance 1006 2352.2 689 Result Diagrams: 08/04/18 06:52 08/04/18 06:52 Additional Labs: Accuchecks 08/04/18 08/04/18 08/04/18 16:18 12:28 07:21 POC Glucose 140 H 203 H 235 H 08/04/18 08/04/18 08/03/18 06:13 00:26 20:56 POC Glucose 226 H 247 H 240 H EKG Reviewed by me: Yes (Tele: NSR, runs of V.tach) Phys Exam - Physical Examination Constitutional: NAD HEENT: moist MMs, sclera anicteric, oral pharynx no lesions, 2+ tonsils Neck: no nodes, no JVD, supple, full ROM Respiratory: clear to auscultation bilateral Cardiovascular: RRR, no rub S1, S2 Gastrointestinal: soft, non-tender, no distention, positive bowel sounds s/p L BKA Neurological: moves all 4 limbs Psychiatric: normal affect, A&O x 3 Dx/Plan (1) Syncope Code(s): R55 - SYNCOPE AND COLLAPSE Status: Acute Comment: no recurrence, continue to monitor. Pt has runs of V-tach on telemetry. (2) V-tach Code(s): I47.2 - VENTRICULAR TACHYCARDIA Status: Acute Comment: pt being started on amiodarone (3) NSTEMI (non-ST elevated myocardial infarction) Code(s): I21.4 - NON-ST ELEVATION (NSTEMI) MYOCARDIAL INFARCTION Status: Acute Comment: likely due to cardiac muscle hypoperfusion (4) ESRD (end stage renal disease) on dialysis Code(s): N18.6 - END STAGE RENAL DISEASE; Z99.2 - DEPENDENCE ON RENAL DIALYSIS Status: Chronic Comment: dialysis per nephrology service (5) HTN (hypertension) Code(s): I10 - ESSENTIAL (PRIMARY) HYPERTENSION Status: Chronic Qualifiers: Hypertension type: essential hypertension Qualified Code(s): I10 - Essential (primary) hypertension Comment: pt has been weaned off of pressors for hypotension (6) Sepsis Code(s): A41.9 - SEPSIS, UNSPECIFIED ORGANISM Status: Suspected Comment: continue IV antibiotics as below for suspected sepsis, follow cultures. - Plan * . Review of Systems - Review of Systems Constitutional: weakness. negative: fever, chills, sweats, malaise Cardiovascular: negative: chest pain, palpitations, orthopnea, paroxysmal nocturnal dyspnea, edema, light headedness Gastrointestinal: Nausea, Vomiting. negative: Abdominal Pain, Diarrhea, Constipation, Melena, Hematochezia Genitourinary: negative: Dysuria, Frequency, Incontinence, Hematuria, Retention Musculoskeletal: negative: Neck Pain, Shoulder Pain, Arm Pain, Back Pain, Hand Pain, Leg Pain, Foot Pain Skin: negative: Rash, Lesions, Marcus, Bruising - Medications/Allergies Allergies/Adverse Reactions: Allergies Allergy/AdvReac Type Severity Reaction Status Date / Time gabapentin AdvReac Unknown Verified 08/02/18 19:31 gentamicin [Gentamicin] AdvReac Unknown Verified 08/02/18 19:31 plastic tape AdvReac Mild Uncoded 08/02/18 20:37 Medications: Current Medications Aspirin (Ecotrin) 325 mg PO DAILY DIA Last Admin: 08/04/18 07:41 Dose: 325 mg Calcium Carbonate (Tums) 1,000 mg PO Q4H PRN PRN Reason: Heartburn or Indigestion Last Admin: 08/04/18 12:25 Dose: 1,000 mg Dextrose/Water (Dextrose 50%) 25 gm IVP PRN PRN PRN Reason: HYPOGLYCEMIA PROTOCOL Last Admin: 08/02/18 20:20 Dose: 25 gm Glucagon (Glucagon) 1 mg IM PRN PRN PRN Reason: HYPOGLYCEMIA PROTOCOL Heparin Sodium (Porcine) (Heparin 1,000 Units/Ml (10 Ml)) 0 units SLOW IVP ASDIR DIA; Protocol Last Admin: 08/03/18 18:07 Dose: 2,400 unit Hydroxychloroquine Sulfate (Plaquenil) 200 mg PO QPM DIA Last Admin: 08/03/18 20:34 Dose: 200 mg Dextrose/Water (D5w) 1,000 mls @ 0 mls/hr IV INF PRN PRN Reason: HYPOGLYCEMIA PROTOCOL Norepinephrine Bitartrate (Levophed) 250 mls @ 0 mls/hr IVPB INF PRN; Protocol PRN Reason: TO KEEP MAP > 65 Last Admin: 08/02/18 19:56 Dose: 250 mls Heparin Sodium/Dextrose (Heparin 25,000 Units/D5w 500 Ml) 500 mls @ 0 mls/hr IVPB INF [facility]; Protocol Last Admin: 08/04/18 00:03 Dose: 500 mls Vancomycin HCl 1.25 gm/ Sodium (Chloride) 250 mls @ 166.667 mls/hr IVPB .AT DIALYSIS PRN PRN Reason: IF VANC LEVEL <= 5.0 Vancomycin HCl 1 gm/ Device 200 mls @ 200 mls/hr IVPB .AT DIALYSIS PRN PRN Reason: IF VANC LEVEL >5 AND <=10 Vancomycin HCl 750 mg/ Sodium (Chloride) 250 mls @ 250 mls/hr IVPB .AT DIALYSIS PRN PRN Reason: IF VANC LEVEL >10 AND <= 15 Last Admin: 08/04/18 18:12 Dose: 250 mls Vancomycin HCl 500 mg/ Sodium (Chloride) 100 mls @ 100 mls/hr IVPB .AT DIALYSIS PRN PRN Reason: IF VANC LEVEL >15 AND <=20 Piperacillin Sod/Tazobactam (Sod 2.25 gm/ Sodium Chloride) 100 mls @ 200 mls/ hr IVPB 0400,1600 [facility] Last Admin: 08/04/18 06:33 Dose: 100 mls Amiodarone HCl 450 mg/Miscellaneous Medication 1 each/ Dextrose/Water 259 mls @ 0 mls/hr IVPB INF DIA; Protocol Last Admin: 08/04/18 18:09 Dose: 259 mls Insulin Human Regular (Humulin R) 0 units SC .MILD SLIDING PRN; Protocol PRN Reason: MILD SLIDING SCALE Last Admin: 08/04/18 12:29 Dose: 3 unit Miscellaneous Medication (Pharmacy To Dose) 0 each IVPB PRN PRN PRN Reason: VANC Pharmacy to Dose Miscellaneous Medication (Pharmacy To Dose) 0 each IVPB PRN PRN PRN Reason: ZOSYN Pharmacy to Dose Miscellaneous Medication (Vancomycin Sliding Scale) 1 each FS .AT DIALYSIS [facility] Hold Vancomycin For (Level >20) 0 each FS .AT DIALYSIS PRN PRN Reason: HOLD VANCOMYCIN IF LEVEL >20 Ondansetron HCl (Zofran) 4 mg IVP Q6H PRN PRN Reason: Nausea/Vomiting Last Admin: 08/03/18 20:13 Dose: 4 mg Ondansetron HCl (Zofran Odt) 8 mg SL QID [facility] Pantoprazole Sodium (Protonix) 40 mg PO DAILY [facility] Last Admin: 08/04/18 07:41 Dose: 40 mg Ropinirole HCl (Requip) 2 mg PO BID [facility] Last Admin: 08/04/18 09:52 Dose: 2 mg Sevelamer Carbonate (Renvela) 800 mg PO TID-WM [facility] Last Admin: 08/04/18 12:25 Dose: Not Given Simvastatin (Zocor) 10 mg PO HS [facility] Last Admin: 08/03/18 20:33 Dose: 10 mg Sodium Chloride (Flush - Normal Saline) 10 ml IVF Q12HR [facility] Last Admin: 08/04/18 09:52 Dose: 10 ml Sodium Chloride (Flush - Normal Saline) 10 ml IVF PRN PRN PRN Reason: Saline Flush
[2018-08-04] MEDS: Ondansetron ODT 8 MG TAB SL SCH ×2 (18:44→21:18)
--- NOTE | 2018-08-04 19:06 | PDOC.CTH ---
Cardiology Progress Note - Subjective She feels lightheaded when changing position. No chest pain. - Objective Vital Signs Temp Pulse Ox 08/04/18 16:00 97.8 F 08/04/18 12:00 98.1 F 08/04/18 08:00 95 Weight 3.005 oz 08/03/18 08/04/18 08/05/18 06:59 06:59 06:59 Intake Total 1006 2552.2 689 Output Total 200 Balance 1006 2352.2 689 - Physical Examination General/Neuro: alert & oriented x3, NAD Neck: no JVD present Lungs: unlabored respirations Heart: RRR Abdomen: NT/ND Extremities: other: (no edema) - Telemetry Telemetry Rhythm: NS VT - Labs Result Diagrams: 08/04/18 06:52 08/04/18 06:52 Troponin/CKMB CK-MB (CK-2) 13.3 ng/mL (0-6.6) H* 08/02/18 13:15 Troponin I 8.376 ng/mL (< 0.028) H* 08/03/18 00:15 - Assessment/Plan 1. NSTEMI 2. Severe LV dysfunction EF at 20-25% 3. Severe multivessel CAD. 4. ESRD 5. PVD 6. Possible line sepsis. 7. Hypotension, likely cardiogenic shock. 8. Non sustained VT PLAN: - Continue Amiodarone drip for non sustained VT. - Continue Heparin drip - Would restart Levophed. - She has severe coronary disease. She was scheduled to have surgery today at the [facility] and she tels me she has decided to have this done here now. Currently I would think she is not a candidate for bypass surgery at this time, . she would not survive. I also think that if we ever do CABg on her it is best to be done in a tertiary care facility were ECMO is available. - Continue to folow. - She is severely ill and would not be unexpected.
--- NOTE | 2018-08-04 20:34 | PRG ---
DATE OF SERVICE: 08/04/2018 SUBJECTIVE: Her only complaint today is nausea. She looks much better than she looked yesterday and 100% better than she looked 2 days ago. OBJECTIVE: VITAL SIGNS: Blood pressures running in the 80s, heart rates in the 90s, respiratory rates in the te ens. She is to be dialyzed today. LUNGS: Clear. HEART: Regular rhythm. ABDOMEN: Soft. EXTREMITIES: Without asymmetry. LABORATORY: Hemoglobin is 8.2 today. Electrolytes: Sodium 134, potassium is 4.5, chloride 95, bicarbonate 20, BUN 37, creatinine 6.78, gl ucose 221. Microbiologies cultures are negative. Intake and output is positive 2352. IMPRESSION: Persistent nausea that is intermittent with poor p.o. intake for several days at home. I would wonder if she does not have diabetic gastroparesis, would not be unreasonable if she will be here for several days to consider doing a nuclear gastric emptying study or consulting Gastroenterolo gy. I am sure some of the concern about nausea would be that might be a manifestation of coronary is chemia, but also certainly could be diabetic gastroparesis. She appears to be stable. Her blood cultures remain negative. We will continue to follow with the o ther physicians caring for her.
[2018-08-04] MEDS ORDERED: Diabetic Tussin 200 MG/10 ML UDCUP PO PRN (21:25)
[2018-08-04] MEDS: Simvastatin 20 MG TAB PO SCH ×2 (21:28→21:29)
[2018-08-04] MEDS: Hydroxychloroquine Sulfate 200 MG TAB PO SCH (21:29)
[2018-08-04] MEDS: Norepinephrine 8 MG/250 ML BAG IVPB PRN (21:37)
[2018-08-05] MEDS: Piperacillin/Tazobactam 2.25 GM in Sodium Chloride 0.9% 100 ML IVPB SCH ×2 (04:58→16:32)
[2018-08-05] MEDS: Ondansetron HCl/PF 4 MG/2 ML Vial IVP PRN (11:31)
[2018-08-05] MEDS: Aspirin 325 mg Enteric Coated Tablet PO SCH (11:42)
[2018-08-05] MEDS: Sevelamer Carbonate 800 MG TAB PO SCH ×2 (11:43→16:32)
[2018-08-05] MEDS: Ondansetron ODT 8 MG TAB SL SCH (11:44)
[2018-08-05] MEDS: rOPINIRole HCl 2 MG TAB PO SCH ×2 (11:46→21:57)
[2018-08-05] MEDS ORDERED: Cepastat Lozenges 1 LOZ PO PRN (13:18)
[2018-08-05] MEDS: Calcium Carbonate 500 MG ChewTAB PO PRN (14:20)
--- NOTE | 2018-08-05 14:59 | PDOC.PN ---
- Subjective Encounter Start Date: 08/05/18 Encounter Start Time: 10:40 Pt seen for followup re: syncope. Denies chest pain. c/o nausea. No fevers or chills. - Objective Resuscitation Status: Resuscitation Status FULL:Full Resuscitation MAR Reviewed: Yes Vital Signs & Weight: Vital Signs (12 hours) Temp Pulse Ox 08/05/18 12:00 98.5 F 08/05/18 08:00 98.4 F 97 Weight Weight 3.005 oz Most Recent Monitor Data Heart Rate from ECG 94 NIBP 102/70 NIBP BP-Mean 80 Respiration from ECG 23 SpO2 93 I&O: 08/04/18 08/05/18 08/06/18 06:59 06:59 06:59 Intake Total 2552.2 909 240 Output Total 200 100 Balance 2352.2 909 140 Result Diagrams: 08/04/18 06:52 08/04/18 06:52 Additional Labs: Accuchecks 08/04/18 08/04/18 21:04 16:18 POC Glucose 141 H 140 H EKG Reviewed by me: Yes (Tele: NSR) Phys Exam - Physical Examination Constitutional: NAD HEENT: moist MMs Neck: supple Respiratory: clear to auscultation bilateral Cardiovascular: RRR Gastrointestinal: soft s/p L BKA Neurological: moves all 4 limbs Psychiatric: normal affect Dx/Plan (1) Syncope Code(s): R55 - SYNCOPE AND COLLAPSE Status: Acute Comment: continue to monitor on telemetry. (2) V-tach Code(s): I47.2 - VENTRICULAR TACHYCARDIA Status: Acute Comment: pt on amiodarone drip (3) Nausea Code(s): R11.0 - NAUSEA Status: Acute Comment: etiology unclear, pt also reports abdo pain with eating. Consult GI for opinion and help with management. (4) NSTEMI (non-ST elevated myocardial infarction) Code(s): I21.4 - NON-ST ELEVATION (NSTEMI) MYOCARDIAL INFARCTION Status: Acute Comment: likely due to cardiac muscle hypoperfusion, pt is on heparin drip (5) ESRD (end stage renal disease) on dialysis Code(s): N18.6 - END STAGE RENAL DISEASE; Z99.2 - DEPENDENCE ON RENAL DIALYSIS Status: Chronic Comment: dialysis per nephrology service (6) HTN (hypertension) Code(s): I10 - ESSENTIAL (PRIMARY) HYPERTENSION Status: Chronic Qualifiers: Hypertension type: essential hypertension Qualified Code(s): I10 - Essential (primary) hypertension Comment: pt is still on levophed (7) Sepsis Code(s): A41.9 - SEPSIS, UNSPECIFIED ORGANISM Status: Suspected Comment: continue IV antibiotics as below for suspected sepsis, follow cultures. - Plan * . Review of Systems - Review of Systems Cardiovascular: negative: chest pain, palpitations, orthopnea, paroxysmal nocturnal dyspnea, edema, light headedness Gastrointestinal: Nausea. negative: Vomiting, Abdominal Pain, Diarrhea, Constipation, Melena, Hematochezia - Medications/Allergies Allergies/Adverse Reactions: Allergies Allergy/AdvReac Type Severity Reaction Status Date / Time gabapentin AdvReac Unknown Verified 08/02/18 19:31 gentamicin [Gentamicin] AdvReac Unknown Verified 08/02/18 19:31 plastic tape AdvReac Mild Uncoded 08/02/18 20:37 Medications: Current Medications Aspirin (Ecotrin) 325 mg PO DAILY [facility] Last Admin: 08/05/18 11:42 Dose: 325 mg Calcium Carbonate (Tums) 1,000 mg PO Q4H PRN PRN Reason: Heartburn or Indigestion Last Admin: 08/04/18 12:25 Dose: 1,000 mg Dextrose/Water (Dextrose 50%) 25 gm IVP PRN PRN PRN Reason: HYPOGLYCEMIA PROTOCOL Last Admin: 08/02/18 20:20 Dose: 25 gm Glucagon (Glucagon) 1 mg IM PRN PRN PRN Reason: HYPOGLYCEMIA PROTOCOL Guaifenesin (Robitussin Sf) 200 mg PO Q6H PRN PRN Reason: Cough Last Admin: 08/04/18 21:36 Dose: 200 mg Heparin Sodium (Porcine) (Heparin 1,000 Units/Ml (10 Ml)) 0 units SLOW IVP ASDIR DIA; Protocol Last Admin: 08/03/18 18:07 Dose: 2,400 unit Hydroxychloroquine Sulfate (Plaquenil) 200 mg PO QPM DIA Last Admin: 08/04/18 21:29 Dose: 200 mg Dextrose/Water (D5w) 1,000 mls @ 0 mls/hr IV INF PRN PRN Reason: HYPOGLYCEMIA PROTOCOL Norepinephrine Bitartrate (Levophed) 250 mls @ 0 mls/hr IVPB INF PRN; Protocol PRN Reason: TO KEEP MAP > 65 Last Admin: 08/04/18 21:37 Dose: 250 mls Heparin Sodium/Dextrose (Heparin 25,000 Units/D5w 500 Ml) 500 mls @ 0 mls/hr IVPB INF DIA; Protocol Last Admin: 08/04/18 21:38 Dose: 500 mls Vancomycin HCl 1.25 gm/ Sodium (Chloride) 250 mls @ 166.667 mls/hr IVPB .AT DIALYSIS PRN PRN Reason: IF VANC LEVEL <= 5.0 Vancomycin HCl 1 gm/ Device 200 mls @ 200 mls/hr IVPB .AT DIALYSIS PRN PRN Reason: IF VANC LEVEL >5 AND <=10 Vancomycin HCl 750 mg/ Sodium (Chloride) 250 mls @ 250 mls/hr IVPB .AT DIALYSIS PRN PRN Reason: IF VANC LEVEL >10 AND <= 15 Last Admin: 08/04/18 18:12 Dose: 250 mls Vancomycin HCl 500 mg/ Sodium (Chloride) 100 mls @ 100 mls/hr IVPB .AT DIALYSIS PRN PRN Reason: IF VANC LEVEL >15 AND <=20 Piperacillin Sod/Tazobactam (Sod 2.25 gm/ Sodium Chloride) 100 mls @ 200 mls/ hr IVPB 0400,1600 DIA Last Admin: 08/04/18 18:44 Dose: 100 mls Amiodarone HCl 450 mg/Miscellaneous Medication 1 each/ Dextrose/Water 259 mls @ 0 mls/hr IVPB INF DIA; Protocol Last Admin: 08/04/18 18:09 Dose: 259 mls Insulin Human Regular (Humulin R) 0 units SC .MILD SLIDING PRN; Protocol PRN Reason: MILD SLIDING SCALE Last Admin: 08/04/18 12:29 Dose: 3 unit Miscellaneous Medication (Pharmacy To Dose) 0 each IVPB PRN PRN PRN Reason: VANC Pharmacy to Dose Miscellaneous Medication (Pharmacy To Dose) 0 each IVPB PRN PRN PRN Reason: ZOSYN Pharmacy to Dose Miscellaneous Medication (Vancomycin Sliding Scale) 1 each FS .AT DIALYSIS DIA Hold Vancomycin For (Level >20) 0 each FS .AT DIALYSIS PRN PRN Reason: HOLD VANCOMYCIN IF LEVEL >20 Ondansetron HCl (Zofran) 4 mg IVP Q6H PRN PRN Reason: Nausea/Vomiting Last Admin: 08/05/18 11:31 Dose: 4 mg Pantoprazole Sodium (Protonix) 40 mg IVP DAILY [facility] Ropinirole HCl (Requip) 2 mg PO BID [facility] Last Admin: 08/05/18 11:46 Dose: Not Given Sevelamer Carbonate (Renvela) 800 mg PO TID-WM [facility] Last Admin: 08/05/18 11:43 Dose: Not Given Simvastatin (Zocor) 10 mg PO HS [facility] Last Admin: 08/04/18 21:28 Dose: 10 mg Sodium Chloride (Flush - Normal Saline) 10 ml IVF Q12HR [facility] Last Admin: 08/05/18 11:45 Dose: 10 ml Sodium Chloride (Flush - Normal Saline) 10 ml IVF PRN PRN PRN Reason: Saline Flush Throat Lozenges (Cepastat Lozenges) 1 kristyn PO Q3H PRN PRN Reason: SORE THROAT
--- NOTE | 2018-08-05 14:59 | PRG ---
DATE OF SERVICE: 08/05/2018 SUBJECTIVE: Patient was seen and examined at bedside and overnight events noted. Patient denies any shortness of breath or chest pain or palpitation. No history of nausea or vomitin g or diarrhea or fever or chills or cramps. OBJECTIVE: GENERAL: This is a well-built female, in no apparent distress. VITAL SIGNS: Temperature 98.5, pulse 94, respiratory rate 23, blood pressure 102/70. HEENT: Atraumatic, normocephalic. Oral mucosa is moist. NECK: Supple. CARDIOVASCULAR: S1 and S2 heard. Rate and rhythm regular. RESPIRATORY: Clear to auscultation. GASTROINTESTINAL: Abdomen is soft. MUSCULOSKELETAL: No tenderness. No edema. DERMATOLOGIC: No skin rash. NEUROLOGIC: Alert and awake and oriented x3. No focal neurologic deficits. Moving all the extremit ies. PSYCHIATRIC: Mood and affect normal. LABORATORY DATA: No labs done today. ASSESSMENT AND PLAN: 1. End-stage renal disease. We will continue dialysis Tuesdays, and Wednesday. 2. Hyperkalemia. 3. Edema. 4. Anemia. 5. Cardiorenal syndrome. Plan is to continue on dialysis as tolerated.
--- NOTE | 2018-08-05 15:17 | PDOC.CTH ---
Cardiology Progress Note - Subjective She is doing better. BP better but still on Levophed. - Objective Vital Signs Temp Pulse Ox 08/05/18 12:00 98.5 F 08/05/18 08:00 98.4 F 97 Weight 3.005 oz 08/04/18 08/05/18 08/06/18 06:59 06:59 06:59 Intake Total 2552.2 909 240 Output Total 200 100 Balance 2352.2 909 140 - Physical Examination General/Neuro: alert & oriented x3, NAD Neck: no JVD present Lungs: CTA, unlabored respirations Heart: RRR Abdomen: NT/ND Extremities: other: (no edema) - Telemetry Telemetry Rhythm: NSR - Labs Result Diagrams: 08/04/18 06:52 08/04/18 06:52 Troponin/CKMB CK-MB (CK-2) 13.3 ng/mL (0-6.6) H* 08/02/18 13:15 Troponin I 8.376 ng/mL (< 0.028) H* 08/03/18 00:15 - Assessment/Plan 1. NSTEMI 2. Severe LV dysfunction EF at 20-25%, worsened. 3. Severe multivessel CAD. 4. ESRD on HD. 5. PVD 6. Possible line sepsis. 7. Hypotension, likely cardiogenic shock. 8. Non sustained VT, none since on amiodarone. PLAN: - Continue Amiodarone drip for non sustained VT. - Continue Heparin drip - Try to wean Levophed. - She has severe coronary disease. She was scheduled to have surgery yesterday at the [facility]. Currently her LV has worsened and woudl not survive surgery in her current state. If she becomes more stable and infection is ruled we may consider CABG however I would recommend doing this in a tertiary care facility were ECMO is available. - She is severely ill and would not be unexpected.
[2018-08-05 17:19] LABS: INR-International Normal Ratio 2.2; Prothrombin Time 24.1 SEC (12.0-14.7)
[2018-08-05 17:20] LABS: PTT 59.7 SEC (22.9-36.1)
[2018-08-05] MEDS ORDERED: Promethazine HCl 25 MG/ML VIAL IM/IV PRN (18:40)
[2018-08-05] MEDS: Heparin 25,000 units/D5W 500 ML IVPB SCH (21:51)
[2018-08-05] MEDS: Ondansetron HCl/PF 4 MG/2 ML Vial IVP SCH (21:53)
[2018-08-05] MEDS: Simvastatin 20 MG TAB PO SCH (21:57)
[2018-08-05] MEDS: Hydroxychloroquine Sulfate 200 MG TAB PO SCH (21:57)
[2018-08-05] MEDS: Heparin 10,000 UNITS/ 10 ML VIAL SLOW IVP SCH (21:59)
[2018-08-05] MEDS: Norepinephrine 8 MG/250 ML BAG IVPB PRN (22:03)
--- NOTE | 2018-08-06 02:03 | CON ---
DATE OF CONSULTATION: 08/05/2018 REASON FOR CONSULTATION: Nausea, vomiting. CONSULTING PHYSICIAN: Dr. Peng Dunlap. HISTORY OF PRESENT ILLNESS: The patient is a 53-year-old female with past medical history of diabete s, hypertension, hyperlipidemia, end-stage renal disease on hemodialysis and significant coronary art ruth disease who was originally planned for CABG later this week, presenting with complaints of syncop e, nausea, and vomiting. Per chart review and per patient, she had been generally feeling poor for t he preceding 2-3 weeks prior to admission that was associated with intermittent nausea, but no actual emesis. However, approximately 6 days ago, she started to experience more daily nausea with associa el vomiting x2. During this hospitalization, she has also had 2 discrete episodes of emesis, but flores s not had any generally within the last 24 hours. Upon admission to the hospital for evaluation of h er generalized weakness as well as nausea and vomiting, she was noted to have significant hypotension that could potentially contribute to her symptoms. The working diagnosis at this point it is possib le sepsis via infection of an indwelling catheter in her chest that was being used for hemodialysis. However, she did have an echocardiogram performed during this admission, which shows a significantly decreased ejection fraction compared to previous with the current EF being approximately 25-30%. Ho wever, over the last 48-72 hours, she has been generating daily nausea that has currently been uncont rolled via as needed antiemetic as well as the generation of increased midepigastric abdominal pain. She states that her midepigastric abdominal pain is characterized as a burning-type sensation that w ill originate in the midepigastric region, but generalized in the entire abdomen. It usually occurs within seconds of eating or drinking anything with no specific food triggers; however, the pain is in termittent and will reach a severity of approximately 6-7/10. There are no clear alleviating factors , but the pain is exacerbated with the ingestion of either solids or liquids. She does have increase d nausea associated with this pain, but not necessarily temporally related to this pain where she wou ld have episodes of nausea and will occur when she is pain free. She does have a history of signific ant GERD that has been present for years and had been taking omeprazole as an outpatient with moderat e relief in her symptoms, but would require the use of antacids as needed for breakthrough symptoms. At the current point in time, she denies any fevers, chills, dysphagia, odynophagia, or GI bleeding. REVIEW OF SYSTEMS: A 10-category review of systems was obtained with all responses negative except f or the pertinent positives as listed in the HPI. PAST MEDICAL HISTORY: As per HPI. PAST SURGICAL HISTORY: Left [id number] amputation, left chest wall hemodialysis port placement, right upper extremity arteriovenous fistula, eye surgery, and hand surgery. FAMILY HISTORY: She denies any GI malignancies. SOCIAL HISTORY: Denies any tobacco, alcohol, or illicit drug use. OUTPATIENT MEDICATIONS: Reviewed. ALLERGIES: GABAPENTIN, GENTAMICIN, and PLASTIC TAPE. PHYSICAL EXAMINATION: VITAL SIGNS: Temperature 98.8, heart rate 91, blood pressure 104/53, respiratory rate 30, satting wi th no clear documented oxygen saturation over the last 6-8 hours. GENERAL: The patient was lying in bed in no acute distress. Alert and oriented x4. HEENT: No scleral icterus noted. NECK: Supple. No JVD noted. CARDIOVASCULAR: The patient's heart sounds were difficult to discern, but displayed regular rate and rhythm with no discernible murmurs, gallops, or rubs. LUNGS: Clear to auscultation bilaterally with no discernible wheezes or rales. ABDOMEN: Hypoactive bowel sounds, soft, nondistended. Tenderness to palpation in the midepigastric region. EXTREMITIES: She had a left [id number] amputation as well as right lower extremity edema at appr oximately 2+ extending to the knee. LABORATORY DATA: CBC with a hemoglobin of 8.2 and hematocrit of 26.1. Chemistry with a sodium of 13 4, potassium 4.5, chloride 95, CO2 of 20, BUN 37, creatinine 6.78, glucose 221. Hepatitis B virus claros rface antigen negative. IMAGING DATA: CT of the chest obtained on 08/02/2018, showed some atelectatic changes in the lung ba ses with some mild mediastinal adenopathy. There were also some chronic appearing interstitial lung changes seen in the bilateral bases. The thoracic aorta was normal in caliber with fairly good pulmo nary artery opacification obtained with no evidence of pulmonary embolus. Also noted with on the CT chest, there was moderate coronary artery calcifications as well as no abnormality seen within the li jw parenchyma visualized during the study. Review of the echocardiogram was significant for a decre ased ejection fraction to approximately 25-30%. ASSESSMENT AND PLAN: The patient is a 53-year-old female with past medical history of diabetes, hype rtension, hyperlipidemia, end-stage renal disease on hemodialysis, significant coronary artery diseas e with a decrease in her ejection fraction to approximately 25-30% as well as evidence of probable no [id number] myocardial infarction during this hospitalization, presenting with midepigastric abdom inal pain, nausea, and vomiting. Abdominal pain/nausea/vomiting: The patient is presenting with 2-3 week history of worsening general malaise that ultimately manifested itself and hypotension requiring pressure support and non-ST-elev ation myocardial infarction requiring admission, she was noted to have significantly decreased ejecti on fraction to approximately 25-30% as well. However, over the last 6 days, she has been having wors ening midepigastric abdominal pain characterized as a burning-type intermittent pain occurring within seconds of eating or drinking anything, but would also generalized to the entire abdomen and reaches severity of approximately 6-7/10. This has been associated, but not necessarily temporally related to increased nausea and vomiting. However, the nausea seems to be the more predominant symptom with nausea occurring daily, but only 2 discrete episodes during this this hospitalization. She does have a history of significant acid reflux that was only moderately controlled with PPI use as an outpatie nt. At this point, her midepigastric abdominal pain seems to be more related to uncontrolled acid re flux due to improper dosing of omeprazole as an outpatient. This, in turn, could increase episodes o f nausea . However, given her significant medical comorbidities including elevated blood urea n itrogen and worsening of her cardiac status either these conditions could potentially generate chroni c nausea as well. RECOMMENDATIONS: 1. I would schedule her pantoprazole 40 mg twice daily to be administered 30 minutes before breakfas t and dinner for maximum acid suppression. 2. We would schedule Zofran 4 mg IV q.8 hours with Phenergan 25 mg as needed. 3. Aggressive antiemetic control and breakthrough symptoms respectively. 4. We would consider sucralfate b.i.d. for related esophagitis potentially contributing to her abdom inal pain, nausea, and vomiting. 5. We would continue management of her cardiac and renal comorbidities as these could potentially ge nerate nausea and vomiting as well. We will continue to follow. Please call with any additional questions.
[2018-08-06] MEDS: Amiodarone HCl 450 MG, Admixture Fee 1 EACH in Dextrose 5% in Water 250 ML IVPB SCH ×2 (03:27→16:54)
[2018-08-06] MEDS: Ondansetron HCl/PF 4 MG/2 ML Vial IVP SCH ×3 (05:40→22:08)
[2018-08-06] MEDS: Piperacillin/Tazobactam 2.25 GM in Sodium Chloride 0.9% 100 ML IVPB SCH ×2 (05:41→16:34)
--- NOTE | 2018-08-06 05:46 | PDOC.CTH ---
Cardiology Progress Note - Subjective pt appears comfortable. No complaints. Sitting up. BP 86/50 - Objective Vital Signs Pulse Ox 08/05/18 20:00 98 Weight 3.005 oz 08/04/18 08/05/18 08/06/18 06:59 06:59 06:59 Intake Total 2552.2 909 1290 Output Total 200 200 Balance 2352.2 909 1090 - Physical Examination General/Neuro: alert & oriented x3, NAD Neck: carotid US brisk, no JVD present Lungs: other: (crackles bilaterally) Heart: PMI normal, RRR Abdomen: NT/ND, soft Extremities: + femoral B - Labs Result Diagrams: 08/04/18 06:52 08/04/18 06:52 Troponin/CKMB CK-MB (CK-2) 13.3 ng/mL (0-6.6) H* 08/02/18 13:15 Troponin I 8.376 ng/mL (< 0.028) H* 08/03/18 00:15 - Assessment/Plan 1. NSTEMI 2. Severe LV dysfunction EF at 20-25%, worsened. 3. Severe multivessel CAD. 4. ESRD on HD. 5. PVD 6. Possible line sepsis. 7. Hypotension, likely cardiogenic shock. 8. Non sustained VT, none since on amiodarone. On levophed for pressor support Recommend adding dobutrex for inotropic support. Crackles on exam present. May also help improve BP Prgnosis guarded
[2018-08-06] MEDS ORDERED: DOBUTamine 500 mg/250 ml 250 ML IVPB SCH (08:30)
--- NOTE | 2018-08-06 08:53 | PRG ---
DATE OF SERVICE: 08/06/2018. SUBJECTIVE: Patient was seen and examined at bedside and overnight events noted. Patient denies any shortness of breath or chest pain or palpitation. No history of nausea or vomiting or diarrhea or f ever or chills or cramps. OBJECTIVE: GENERAL: This is a well-built female in no apparent distress. VITAL SIGNS: Temperature 98.8, pulse 89, respiratory rate of 26, blood pressure 104/66. HEENT: Atraumatic, normocephalic. Oral mucosa is moist. NECK: Supple. CARDIOVASCULAR: S1, S2 heard. Rate and rhythm regular. RESPIRATORY: Clear to auscultation. GASTROINTESTINAL: Abdomen is soft. MUSCULOSKELETAL: No tenderness, 1+ edema. DERMATOLOGIC: No skin rash. NEUROLOGIC: Alert and awake and oriented x3. No focal neurologic deficits. Moving all the extremit ies. PSYCHIATRIC: Mood and affect normal. LABORATORY DATA: Not done today. ASSESSMENT AND PLAN: 1. End-stage renal disease. Continue on dialysis today and do a Wednesday, and Wednesday as t olerated. 2. Hyperkalemia, better. 3. Edema, remove fluid if tolerated. 4. Anemia. 5. Cardiorenal syndrome. 6. Hypertension. We will plan to start dobutamine per Cardiology. We will follow. Prognosis guard ed. We will have dialysis as tolerated.
[2018-08-06] MEDS ORDERED: Pantoprazole 40 MG VIAL IVP SCH (09:00)
[2018-08-06] MEDS: Pantoprazole 40 MG VIAL IVP SCH ×2 (09:34→16:34)
[2018-08-06] MEDS: Aspirin 325 mg Enteric Coated Tablet PO SCH (09:35)
[2018-08-06] MEDS: Sevelamer Carbonate 800 MG TAB PO SCH ×3 (09:36→17:55)
--- NOTE | 2018-08-06 10:40 | PRG ---
DATE OF SERVICE: 08/06/2018 SERVICE: Pulmonary Medicine. INTERVAL HISTORY: The patient is doing fine from a respiratory standpoint. She is breathing comfortably. No chest discomfort, nausea or vomiting today. Her abdominal discomfort and nausea have improved fairly significantly with GI interventions yesterday. She is very grateful for that. She thinks she is a little uncomfortable in the bed and would like to start mobilizing her touch more which is nice to hear. PHYSICAL EXAMINATION: VITAL SIGNS: Afebrile, pulse 89, blood pressure 94/70, respirations 26, saturations are 96% on room air. GENERAL: The patient is awake, alert, no apparent distress. LUNGS: There is good air entry. There is no prolonged expiratory phase. Crackles are identified. HEART: Normal rate, regular. ABDOMEN: Soft, nontender, nondistended. Bowel sounds are positive. MUSCULOSKELETAL: No cyanosis or clubbing. Trace pitting is present. NEUROLOGIC: Grossly nonfocal. LABORATORY DATA: Blood sugars ranged from 105-207. Blood cultures x2 are unremarkable. ASSESSMENT: 1. Non-ST elevation myocardial infarction. 2. Chronic systolic heart failure. 3. End-stage renal disease. 4. Cardiogenic shock. 5. Nonsustained ventricular tachycardia. 6. Type 2 diabetes mellitus. 7. Gastrointestinal discomfort, resolved. DISCUSSION AND PLAN: The patient will remain in the ICU until she is off of pressor drips. We work on mobilization efforts. I agree with a little bit of dobutamine to see if we can offload some more fluid. Pulmonary Critical Care will continue to follow along in this location. FIDELIA
[2018-08-06] MEDS: rOPINIRole HCl 2 MG TAB PO SCH ×2 (11:20→22:09)
[2018-08-06] MEDS: Insulin Regular 300 UNITS/3 ML VIAL SC PRN ×2 (13:35→17:48)
[2018-08-06] MEDS ORDERED: Acetaminophen/Codeine 30-300mg Tablet PO SCH (17:15)
[2018-08-06 17:47] VITALS: BP 109/68
--- NOTE | 2018-08-06 18:36 | PDOC.PN ---
- Subjective Encounter Start Date: 08/06/18 Encounter Start Time: 10:30 Pt seen for followup re: syncope. No new complaints. - Objective Resuscitation Status: Resuscitation Status FULL:Full Resuscitation Vital Signs & Weight: Vital Signs (12 hours) Temp Pulse Pulse BP BP Pulse Ox 08/06/18 17:44 94 87 109/68 93/62 08/06/18 16:00 98 F 08/06/18 12:00 98.1 F 08/06/18 08:00 97.7 F 96 Weight Weight 187 lb 2.759 oz Most Recent Monitor Data Heart Rate from ECG 87 NIBP 109/68 NIBP BP-Mean 85 Respiration from ECG 25 SpO2 93 I&O: 08/05/18 08/06/18 08/07/18 06:59 06:59 06:59 Intake Total 909 1965 240 Output Total 200 201 Balance 909 1765 39 Result Diagrams: 08/04/18 06:52 08/04/18 06:52 Additional Labs: Accuchecks 08/06/18 08/06/18 08/06/18 17:28 13:31 04:19 POC Glucose 295 H 316 H 207 H 08/06/18 00:14 POC Glucose 173 H Phys Exam - Physical Examination Constitutional: NAD HEENT: moist MMs Neck: full ROM Respiratory: clear to auscultation bilateral Cardiovascular: RRR Gastrointestinal: non-tender s/p L BKA Neurological: moves all 4 limbs Psychiatric: normal affect Dx/Plan (1) Syncope Code(s): R55 - SYNCOPE AND COLLAPSE Status: Acute Comment: continue to monitor on telemetry, no recurrence (2) V-tach Code(s): I47.2 - VENTRICULAR TACHYCARDIA Status: Acute Comment: continue amiodarone drip (3) Nausea Code(s): R11.0 - NAUSEA Status: Acute Comment: Pt reports it is improving, seen by GI, appreciate input (4) NSTEMI (non-ST elevated myocardial infarction) Code(s): I21.4 - NON-ST ELEVATION (NSTEMI) MYOCARDIAL INFARCTION Status: Acute Comment: likely due to cardiac muscle hypoperfusion, continue heparin drip (5) ESRD (end stage renal disease) on dialysis Code(s): N18.6 - END STAGE RENAL DISEASE; Z99.2 - DEPENDENCE ON RENAL DIALYSIS Status: Chronic Comment: dialysis per nephrology service (6) HTN (hypertension) Code(s): I10 - ESSENTIAL (PRIMARY) HYPERTENSION Status: Chronic Qualifiers: Hypertension type: essential hypertension Qualified Code(s): I10 - Essential (primary) hypertension Comment: pt is still on levophed drip in CCU (7) Sepsis Code(s): A41.9 - SEPSIS, UNSPECIFIED ORGANISM Status: Suspected Comment: continue IV antibiotics as below for suspected sepsis - Plan * . Review of Systems - Review of Systems Respiratory: negative: Cough, Shortness of Breath, SOB with Excertion, Pleuritic Pain, Wheezing Cardiovascular: negative: chest pain, palpitations, orthopnea, paroxysmal nocturnal dyspnea, edema, light headedness - Medications/Allergies Allergies/Adverse Reactions: Allergies Allergy/AdvReac Type Severity Reaction Status Date / Time gabapentin AdvReac Unknown Verified 08/02/18 19:31 gentamicin [Gentamicin] AdvReac Unknown Verified 08/02/18 19:31 plastic tape AdvReac Mild Uncoded 08/02/18 20:37 Medications: Current Medications Acetaminophen/Codeine Phosphate (Tylenol #3) 1 tab PO 1715 DIA Stop: 08/06/18 21:00 Last Admin: 08/06/18 17:53 Dose: 1 tab Aspirin (Ecotrin) 325 mg PO DAILY [facility] Last Admin: 08/06/18 09:35 Dose: 325 mg Calcium Carbonate (Tums) 1,000 mg PO Q4H PRN PRN Reason: Heartburn or Indigestion Last Admin: 08/05/18 14:20 Dose: 1,000 mg Dextrose/Water (Dextrose 50%) 25 gm IVP PRN PRN PRN Reason: HYPOGLYCEMIA PROTOCOL Last Admin: 08/02/18 20:20 Dose: 25 gm Glucagon (Glucagon) 1 mg IM PRN PRN PRN Reason: HYPOGLYCEMIA PROTOCOL Guaifenesin (Robitussin Sf) 200 mg PO Q6H PRN PRN Reason: Cough Last Admin: 08/04/18 21:36 Dose: 200 mg Heparin Sodium (Porcine) (Heparin 1,000 Units/Ml (10 Ml)) 0 units SLOW IVP ASDIR DIA; Protocol Last Admin: 08/05/18 21:59 Dose: 2,406 unit Hydroxychloroquine Sulfate (Plaquenil) 200 mg PO QPM [facility] Last Admin: 08/05/18 21:57 Dose: 200 mg Dextrose/Water (D5w) 1,000 mls @ 0 mls/hr IV INF PRN PRN Reason: HYPOGLYCEMIA PROTOCOL Norepinephrine Bitartrate (Levophed) 250 mls @ 0 mls/hr IVPB INF PRN; Protocol PRN Reason: TO KEEP MAP > 65 Last Admin: 08/05/18 22:03 Dose: 250 mls Heparin Sodium/Dextrose (Heparin 25,000 Units/D5w 500 Ml) 500 mls @ 0 mls/hr IVPB INF DIA; Protocol Last Admin: 08/05/18 21:51 Dose: 500 mls Vancomycin HCl 1.25 gm/ Sodium (Chloride) 250 mls @ 166.667 mls/hr IVPB .AT DIALYSIS PRN PRN Reason: IF VANC LEVEL <= 5.0 Vancomycin HCl 1 gm/ Device 200 mls @ 200 mls/hr IVPB .AT DIALYSIS PRN PRN Reason: IF VANC LEVEL >5 AND <=10 Vancomycin HCl 750 mg/ Sodium (Chloride) 250 mls @ 250 mls/hr IVPB .AT DIALYSIS PRN PRN Reason: IF VANC LEVEL >10 AND <= 15 Last Admin: 08/04/18 18:12 Dose: 250 mls Vancomycin HCl 500 mg/ Sodium (Chloride) 100 mls @ 100 mls/hr IVPB .AT DIALYSIS PRN PRN Reason: IF VANC LEVEL >15 AND <=20 Piperacillin Sod/Tazobactam (Sod 2.25 gm/ Sodium Chloride) 100 mls @ 200 mls/ hr IVPB 0400,1600 DIA Last Admin: 08/06/18 16:34 Dose: 100 mls Amiodarone HCl 450 mg/Miscellaneous Medication 1 each/ Dextrose/Water 259 mls @ 0 mls/hr IVPB INF DIA; Protocol Last Admin: 08/06/18 16:54 Dose: 259 mls Dobutamine HCl/Dextrose (Dobutamine 500 Mg/250 Ml) 250 mls @ 12.735 mls/hr IVPB INF DIA; Protocol Last Admin: 08/06/18 12:30 Dose: 250 mls Insulin Human Regular (Humulin R) 0 units SC .MILD SLIDING PRN; Protocol PRN Reason: MILD SLIDING SCALE Last Admin: 08/06/18 17:48 Dose: 4 unit Miscellaneous Medication (Pharmacy To Dose) 0 each IVPB PRN PRN PRN Reason: VANC Pharmacy to Dose Miscellaneous Medication (Pharmacy To Dose) 0 each IVPB PRN PRN PRN Reason: ZOSYN Pharmacy to Dose Miscellaneous Medication (Vancomycin Sliding Scale) 1 each FS .AT DIALYSIS [facility] Hold Vancomycin For (Level >20) 0 each FS .AT DIALYSIS PRN PRN Reason: HOLD VANCOMYCIN IF LEVEL >20 Ondansetron HCl (Zofran) 4 mg IVP Q8H [facility] Last Admin: 08/06/18 09:35 Dose: 4 mg Pantoprazole Sodium (Protonix) 40 mg IVP BID-AC [facility] Last Admin: 08/06/18 16:34 Dose: 40 mg Promethazine HCl (Phenergan) 25 mg IM/IV Q6H PRN PRN Reason: Nausea/Vomiting Ropinirole HCl (Requip) 2 mg PO BID [facility] Last Admin: 08/06/18 11:20 Dose: 2 mg Sevelamer Carbonate (Renvela) 800 mg PO TID-WM [facility] Last Admin: 08/06/18 17:55 Dose: Not Given Simvastatin (Zocor) 10 mg PO HS [facility] Last Admin: 08/05/18 21:57 Dose: 10 mg Sodium Chloride (Flush - Normal Saline) 10 ml IVF Q12HR [facility] Last Admin: 08/06/18 09:35 Dose: 10 ml Sodium Chloride (Flush - Normal Saline) 10 ml IVF PRN PRN PRN Reason: Saline Flush Throat Lozenges (Cepastat Lozenges) 1 kristyn PO Q3H PRN PRN Reason: SORE THROAT Last Admin: 08/05/18 08:30 Dose: 1 kristyn
[2018-08-06] MEDS ORDERED: Lidocaine 2 gm/D5W 500ML PREMIX BAG ONE (19:00)
[2018-08-06] MEDS ORDERED: EPINEPHrine 1 MG/10 ML Abboject SYRINGE ONE (19:00)
[2018-08-06] MEDS: Vancomycin HCl 750 MG in Sodium Chloride 0.9% 250 ML 250 ML IVPB PRN (19:32)
[2018-08-06] MEDS: Heparin 25,000 units/D5W 500 ML IVPB SCH (20:54)
[2018-08-06 21:50] LABS: Hemoglobin 10.8 g/dL (12.0-16.0); Platelet Count 402 thou/uL (130-400)
[2018-08-06] MEDS ORDERED: Amiodarone HCl 150 MG, Admixture Fee 1 EACH in Dextrose 5% in Water 100 ML IVPB SCH (22:00)
[2018-08-06] MEDS: Hydroxychloroquine Sulfate 200 MG TAB PO SCH (22:09)
[2018-08-06] MEDS: Simvastatin 20 MG TAB PO SCH (22:09)
[2018-08-06] MEDS ORDERED: Lidocaine 2 gm/D5W 500 ml 500 ML IVPB SCH (23:30)
[2018-08-07] MEDS: Norepinephrine 8 MG/250 ML BAG IVPB PRN (00:02)
[2018-08-07] MEDS: Amiodarone HCl 450 MG, Admixture Fee 1 EACH in Dextrose 5% in Water 250 ML IVPB SCH ×3 (03:18→16:09)
[2018-08-07] MEDS: Piperacillin/Tazobactam 2.25 GM in Sodium Chloride 0.9% 100 ML IVPB SCH ×2 (03:18→15:36)
[2018-08-07] MEDS: Ondansetron HCl/PF 4 MG/2 ML Vial IVP SCH ×2 (03:18→11:40)
[2018-08-07] MEDS: Insulin Regular 300 UNITS/3 ML VIAL SC PRN ×3 (04:19→15:59)
[2018-08-07] MEDS: rOPINIRole HCl 2 MG TAB PO SCH ×2 (04:26→09:53)
[2018-08-07] MEDS: Hydroxychloroquine Sulfate 200 MG TAB PO SCH (04:27)
[2018-08-07] MEDS: Simvastatin 20 MG TAB PO SCH (04:27)
[2018-08-07] MEDS ORDERED: HYDROcodone/Acetaminophen 5/325 mg Tablet PO PRN ×2 (05:22)
--- NOTE | 2018-08-07 05:25 | PRG ---
DATE OF SERVICE: 08/06/2018 REASON FOR CONSULTATION: Nausea, vomiting, midepigastric abdominal pain. SUBJECTIVE: The patient states that her nausea and abdominal pain were significantly improved today until she attempted to eat something, in which case she had return of both her nausea and the midepig astric abdominal pain within minutes after ingestion. She did not have any episodes of overt emesis today; however, which is an improvement from previous. Currently, she denies any fevers, chills, dys phagia, odynophagia, GI bleeding. OBJECTIVE: VITAL SIGNS: Temperature 98 degrees, pulse 92, blood pressure 101/38, respiratory rate 16, satting 1 00% on 4 liters nasal cannula. GENERAL: The patient was lying in bed in no acute distress, alert and oriented x4. CARDIOVASCULAR: The patient's heart sounds were difficult to discern on examination again today, but displayed regular rate rhythm with no discernible murmurs, gallops or rubs. RESPIRATORY: Clear to auscultation bilaterally. ABDOMEN: Normoactive bowel sounds, soft, nondistended. Tenderness to palpation in the midepigastric region. EXTREMITIES: She has a left [id number] amputation as well as right lower extremity edema that is measured at 2+ extending to the knee. LABORATORY DATA: No current labs are available for review. IMAGING DATA: No current GI imaging is available for review. ASSESSMENT AND PLAN: The patient is a 53-year-old female with past medical history of diabetes, hype rtension, hyperlipidemia, end-stage renal disease on hemodialysis, significant coronary artery diseas e with decrease in her ejection fraction to approximately 25-30% as well as a probable non-ST elevati on NM during this hospitalization, presenting with midepigastric abdominal pain, nausea, and vomiting . Abdominal pain/nausea/vomiting: The patient initially presented with a 2-3 week history of worsening general malaise that ultimately manifested itself with hypotension that prompted her to seek [facility] are assistance and ultimately was diagnosed with a non-ST elevation myocardial infarction that requir ed pressor support. During this admission, she was also noted to have a significantly decreased ejec tion fraction of approximately 25% to 30%; however, during this hospitalization, she had been having worsening midepigastric abdominal pain characterized as a burning type intermittent pain occurring wi thin seconds of eating or drinking any foodstuff and that would sometimes generalized to the entire a bdomen. With the initiation of PPI b.i.d., she did have some mild improvement in her symptoms today until she was able to ingest food. At which point, she had increase of her nausea and her abdominal pain, but not necessarily repeat episode of vomiting. At this point, her midepigastric abdominal brenda n and nausea/vomiting could be due to multiple etiologies including her significant medical comorbidi ties surrounding end-stage renal disease, critical coronary artery disease with an ejection fraction of 25-30%, and/or morbid obesity further contributing to acid reflux which could then generate the na usea, vomiting as well. RECOMMENDATIONS: 1. Continue pantoprazole 40 mg twice daily to be administered prior to breakfast and dinner. 2. Would continue Zofran 4 mg every 8 hours with Phenergan 25 mg as needed. 3. Would continue strict antireflux precautions. 4. We would consider sucralfate b.i.d. for related esophagitis that could be potentially contributin g to her above symptoms. We will continue to follow. Please call with any questions.
[2018-08-07] MEDS: Pantoprazole 40 MG VIAL IVP SCH ×2 (08:10→15:37)
[2018-08-07] MEDS: Sevelamer Carbonate 800 MG TAB PO SCH ×2 (08:11→12:27)
--- NOTE | 2018-08-07 08:40 | PDOC.CTH ---
Cardiology Progress Note - Objective Vital Signs Temp Pulse Ox 08/07/18 03:00 98.2 F 08/07/18 00:00 100 08/06/18 23:00 98 F Weight 185 lb 3.013 oz 08/06/18 08/07/18 08/08/18 06:59 06:59 06:59 Intake Total 1965 2640 Output Total 200 201 Balance 1765 2439 - Physical Examination General/Neuro: alert & oriented x3, NAD Neck: no JVD present Lungs: CTA, unlabored respirations Heart: PMI normal, RRR Abdomen: no HSM, NT/ND, soft Extremities: + femoral B - Labs Result Diagrams: 08/06/18 21:36 08/04/18 06:52 Troponin/CKMB CK-MB (CK-2) 13.3 ng/mL (0-6.6) H* 08/02/18 13:15 Troponin I 8.376 ng/mL (< 0.028) H* 08/03/18 00:15 - Assessment/Plan 1. NSTEMI 2. Severe LV dysfunction EF at 20-25%, worsened. 3. Severe multivessel CAD. 4. ESRD on HD. 5. PVD 6. Possible line sepsis. 7. Hypotension, likely cardiogenic shock. 8. Non sustained VT, none since on amiodarone. Pt with VT noted yesterday requiring CPR briefly. Pt placed on lidocaine and rebolused with amiodarone Recommend obtaining cath report from [place]. Prognosis guarded in pt Very high risk ofr recurrent VT, VF but also at increased risk of complications with CV surgery at this time given co-morbidities
[2018-08-07] MEDS: Aspirin 325 mg Enteric Coated Tablet PO SCH (09:53)
--- NOTE | 2018-08-07 10:05 | PRG ---
DATE OF SERVICE: 08/07/2018 SERVICE: Pulmonary Medicine. INTERVAL HISTORY: The patient had a dying spell last night. She just finished up with dialysis. Sh e was disconnected from the circuit. She went over to use the bathroom. On the bedside commode, she slumped over. Her rhythm was ventricular tachycardia. She was pulseless. We were able to get her back into bed. She got one round of chest compressions. She did not require any electricity, or med ications and she spontaneously converted back into a sinus rhythm with frequent PVCs. We gave amioda jose bolus, increased her amiodarone drip, and also initiated her on a lidocaine drip. Her myocardiu m stabilized. For the rest of the night, she did not have any issues that occurred. She denie s any current fevers, chills, nausea or vomiting. She got very refreshing sleep last night. Otherwi se, there has been no interval change to her condition. PHYSICAL EXAMINATION: VITAL SIGNS: Afebrile, pulse 77, blood pressure 112/47, respirations 12, saturation 100% on 2 liters nasal cannula. GENERAL: The patient is awake, alert, no apparent distress. LUNGS: Excellent air entry. There is no wheezing, rhonchi, or crackles present. HEART: Normal rate, regular. ABDOMEN: Soft, nontender, nondistended. Bowel sounds are positive. MUSCULOSKELETAL: No cyanosis or clubbing. There is trace pitting in the bilateral lower extremities . NEUROLOGIC: Grossly nonfocal. LABORATORY DATA: Hemoglobin from last night was 10.8. Blood sugars ranged from 185-316. Blood cult ures x2 are unremarkable. ASSESSMENT: 1. Non-ST elevation myocardial infarction. 2. Chronic systolic heart failure. 3. End-stage renal disease. 4. Cardiogenic shock. 5. Sustained ventricular tachycardia, status post ventricular tachycardia arrest for less than 2 min utes. 6. Type 2 diabetes mellitus. 7. Gastrointestinal discomfort, resolved. DISCUSSION AND PLAN: The patient will remain in the ICU. She is on multiple drips in order to stabi lize her myocardium. Ultimately, she has horrendous coronary artery disease. which is essentially in operable. Cardiology will come up with plan moving forward. If there are no options to prevent thes e types of issues long-term, hospice will need to be considered. Pulmonary Critical Care will contin ue to follow in this location for the time being.
--- NOTE | 2018-08-07 13:33 | PRG ---
DATE OF SERVICE: 08/07/2018 SUBJECTIVE: Patient was seen and examined at bedside and overnight events noted. Patient denies any shortness of breath or chest pain or palpitation. No history of nausea or vomiting or diarrhea or fever or chills or cramps. OBJECTIVE: GENERAL: This is a well-built female in no apparent distress. VITAL SIGNS: Temperature 98.2, pulse 77, blood pressure . HEENT: Atraumatic, normocephalic. Oral mucosa is moist. NECK: Supple. CARDIOVASCULAR: S1 and S2 heard. Rate and rhythm regular. RESPIRATORY: Clear to auscultation. GASTROINTESTINAL: Abdomen is soft. MUSCULOSKELETAL: No tenderness. No edema. DERMATOLOGIC: No skin rash. NEUROLOGIC: Alert and awake and oriented x3. No focal neurologic deficits. Moving all the extremit ies. PSYCHIATRIC: Mood and affect normal. LABORATORY DATA: Not done today. ASSESSMENT AND PLAN: 1. End-stage renal disease. We will continue on dialysis. Patient high risk for dialysis given poo r ejection fraction and her cardiac status, the patient is aware of. 2. Hyperkalemia. 3. Edema. 4. Cardiorenal syndrome. 5. Anemia. 6. complex condition, needing surgery. Follow up with Cardiology and Cardiovascular Surgery. Remains high risk for dialysis.
--- NOTE | 2018-08-07 15:44 | CON ---
DATE OF SERVICE: 08/07/2018. HISTORY OF PRESENT ILLNESS: This is a 53-year-old lady that underwent cardiac catheterization here i n the end of April of this year. I was asked to see her about coronary artery bypass grafting at that time; however, she expressed a desire to have the surgery done in the [place] area where she had lidia e friends that could be of assistance. She was scheduled for surgery at some point here in the near future; however, began feeling poorly about 2-3 weeks ago. She was brought to our emergency room las t week with low blood sugar and hypotension. She was admitted to the ICU. A cardiac echo done showe d an ejection fraction that had significantly decreased from prior study in April where her ejection f raction was about 50%. This study was read about 25%, which I think was being a generous. She then had an episode of V-tach last night for which she received chest compressions. I have been asked to see her again in regards to her coronary artery disease. PAST MEDICAL HISTORY: Significant for type 1 diabetes mellitus as well as hypertension, dyslipidemia , peripheral arterial disease and diabetic eye changes. PAST SURGICAL HISTORY: Includes a left BK amputation about 4 years ago. She has also had a right ar m AV fistula, but also has a left-sided neck dialysis catheter. She has multiple previous eye proced ures including laser treatments and bilateral cataract procedures. She states she has been on hemodi alysis about 4 years. SOCIAL HISTORY: She lives in [place] by herself. She actually lived in [place] for many years a nd a niece suggested she moved to this area, so they could do things together. Unfortunately and sad ly enough this relationship did not work out and the patient is basically alone in the area. PHYSICAL EXAMINATION: GENERAL: She is an alert lady who looks younger than her stated age. Her thought processes are inta ct, although somewhat slow. NECK: No carotid bruits. She has some slight bruising on the right side of her neck. LUNGS: Clear to auscultation and she has a dialysis catheter on her left anterior chest wall. CARDIAC: Exam reveals no murmurs. ABDOMEN: Soft and nontender. EXTREMITIES: She has no palpable pedal pulses in her right foot with some dusky toes. I do not appr eciate a popliteal pulse. She has a left BKA, that is healed. She has a good thrill in her right br achial AV fistula. Presently, her blood pressure is 115 on Levophed and dobutamine, IV amiodarone an d IV lidocaine. I have reviewed her cardiac catheterization and she has a dominant circumflex system with what appear s to be too good targets that may or may not be calcified and it is difficult to be certain. Her lef t anterior descending is occluded and fills slowly from left-sided and right-sided collaterals and ma y be bypassable. She has a diagonal that has significant disease related to the left anterior descen ding ostial disease. Her right coronary artery is codominant and has a high grade stenosis proximall y and probably does have a vessel that could be grafted. Unfortunately, her ejection fraction appear s to be about 15-20%. At this time, I think she is probably a prohibitive surgical risk without left ventricular assist to backup. If her ejection fraction improves, then consideration for surgical in tervention could be entertained here. Otherwise, she will probably have to be transferred to a [facility] where postoperative vent support is available.
[2018-08-07 17:27] VITALS: TEMP 98.2
--- NOTE | 2018-08-07 17:45 | CON ---
DATE OF CONSULTATION: 08/07/2018 CRITICAL CARE NOTE TOTAL CRITICAL CARE TIME: 40 minutes. HISTORY OF PRESENT ILLNESS: Ms. Hedrick had a sudden event yesterday. Rima jeffery was called. She was successfully cardioverted. She was given additional dose of IV amiodarone and placed on IV lidocaine. During my visit this morning, she has some confusion, likely from a mild anoxia. She did not require intubation. She is verbal and seems to communicate appropriately. She is currently on Levophed at 5 mcg in addition to low-dose Dobutrex. PHYSICAL EXAMINATION: GENERAL: Patient is a pleasant female who is in no acute distress. The patient appears her stated a ge. VITAL SIGNS: Blood pressure , pulse 76, temperature afebrile. NEUROLOGIC: The patient is alert and oriented times 3 with no focal neurologic deficits. HEENT: Sclerae without icterus. Mouth has moist mucous membranes with normal pallor. NECK: No JVD. Carotid upstroke brisk. No bruits bilaterally. LUNGS: Clear to auscultation with unlabored respirations. BACK: No scoliosis or kyphosis. CARDIAC: Regular rate and rhythm with normal S1 and S2. No S3 or S4 noted. No significant rubs, murmurs, thrills, or gallops noted throughout the precordium. PMI is not displaced. There is no parasternal heave. ABDOMEN: Soft, nontender, nondistended. No peritoneal signs present. No hepatosplenomegaly. No abnormal striae. EXTREMITIES: Nonpalpable right popliteal pulse and BKA on left. SKIN: No gross abnormalities. PERTINENT LABORATORY DATA: Hemoglobin 10.8, platelet count 402. IMPRESSION: 1. Ventricular tachycardia requiring cardioversion. 2. Severe coronary artery disease. 3. End-stage renal disease. 4. Severe peripheral vascular disease. RECOMMENDATIONS: I had Dr. Yeboah to consult on Ms. Hedrick. I discussed this at length with Dr. Monae lu. She feels she is at too high risk to proceed with revascularization. I then discussed the nidia e with Dr. Hassan at [facility] in [place]. He is willing to take the patient in transfer for a poten tial bypass surgery. She has severe multivessel disease and initially felt because of support issues wanted to have surgery performed in [place]. MOT has been signed.
--- NOTE | 2018-08-07 23:00 | DIS ---
DATE OF ADMISSION: 08/02/2018 DATE OF DISCHARGE: 08/07/2018 PRIMARY CARE PROVIDER: Krystal Rider M.D. DISCHARGE DIAGNOSES: 1. Ventricular tachycardia. 2. Cardiogenic shock. 3. Non-ST elevation myocardial infarction. 4. Nausea and vomiting, likely secondary to esophagitis. CONDITION OF PATIENT ON THE DAY OF DISCHARGE: Stable. I assessed Ms. Hedrick on the day of discha rge. She denies any chest pain or shortness of breath. Vital signs are stable. S1 and S2 are heard , regular. Lungs are clear to auscultation bilaterally. She is still receiving pressors. CONSULTATIONS DURING THIS HOSPITALIZATION: Cardiology, Jose Vizcarra M.D.; Pulmonary Critical Car e Medicine, Lopez Macdonald M.D.; Nephrology, Ashkan Dow M.D. and Gastroenterology, Pawan Cordero M.D. HOSPITAL COURSE: Ms. Hedrick is a pleasant 53-year-old lady who was admitted to [facility] on 08/03/2018 for non-ST elevation myocardial infarction and syncope and hypotension. Please refer to Dr. Martinez's history and physical note dated 08/03/2018 for further details. She was admitted to the critical care unit and received pressors. She was also seen by Nephrology Service f or maintenance hemodialysis. She had runs of ventricular tachycardia. She was seen by Cardiology Se aidan. She has known 3-vessel coronary artery disease. She needed coronary artery bypass graft, but was high risk for complications. She was also seen by Gastroenterology Service for nausea and vomiting. It was felt that her nausea a nd vomiting were likely secondary to esophagitis. She continued to need pressors during this hospitalization. On 08/06/2018, there was a code blue and she had CPR that lasted less than 2 midnights for ventricular tachycardia. On 08/07/2018, Cardiovas cular Surgery service was consulted. They reviewed her cardiac catheterization records and felt that she is a prohibitive surgical risk without left ventricular assist to back up. They recommended tra nsfer to tertiary care center where postoperative vent support is available. She is being transferre d [facility] for further management. DISCHARGE MEDICATIONS: Her current hospital MARs are being sent to Critical access hospital so that her c urrent medications can be continued there. DISCHARGE DESTINATION: Critical access hospital. TOTAL AMOUNT OF TIME SPENT COORDINATING THIS DISCHARGE: 31 minutes.
--- NOTE | 2018-08-09 09:30 | EKG ---
Test Reason : CODE BLUE Blood Pressure : / mmHG Vent. Rate : 098 BPM Atrial Rate : 098 BPM P-R Int : 186 ms QRS Dur : 094 ms QT Int : 412 ms P-R-T Axes : 083 117 045 degrees QTc Int : 525 ms Sinus rhythm with frequent Premature ventricular complexes Low voltage QRS Anterolateral infarct (cited on or before 10-MAY-2018) Prolonged QT Abnormal ECG When compared with ECG of 02-AUG-2018 13:26, (Unconfirmed) Significant changes have occurred Confirmed by TOM MANCIA ([id number]) on 08/09/2018 9:30:33 AM Referred By: CASSIDY Confirmed By:TOM MANCIA
--- NOTE | 2018-08-11 07:56 | PQF ---
[employer] Crystal Reports Winform ViewerJJMIMI CHIA-SHING [id number] [place] [id number] CLINICAL DOCUMENTATION CLARIFICATION FORM: POST DISCHARGE Addendum to original discharge summary date: ____ Late entry note date: __ Please exercise your independent, professional judgment in responding to the clarification form. Clinical indicators are provided on the bottom of this form for your review Please check appropriate box(es): [ ] Sepsis due to: (DIALYSIS CATH, OTHER, etc.) Due to: [ ] Device (please specify) [ ] Implant [ ] Graft [ ] Infusion [ ] SIRS due to non-infectious process (please specify etiology) [ ] with organ dysfunction [ ] without organ dysfunction [ ] Severe sepsis with acute organ dysfunction of: (Examples: respiratory failure, encephalopathy, acute kidney failure, other) [ ] Septic Shock [ ] Localized infection without sepsis [ ] Other diagnosis [ ] Unable to determine In addition, please specify: Present on Admission (POA): [ ] Yes [ ] No [ ] Unable to determine For continuity of documentation, please document condition throughout progress notes and discharge summary. Thank You. CLINICAL INDICATORS - SIGNS / SYMPTOMS / LABS POSSIBE SEPSIS VIA INFECTION FROM INDWELLING CATHETER- CONSULT 08/05 SUSPECTED SEPSIS- H&P, ALL PROGRESS NOTES SHOCK DUE TO SEPSIS VS CARDIOGENIC Fever or hypothermia (<96.8 F/36 C or > 100.4 F/38C) Shock-hypotension resistant to IV fluid boluses RISK FACTORS Infection/Bacteremia Diabetes TREATMENTS: Initiation Sepsis Protocol [employer] Crystal Reports Winform ViewerICU Blood/sputum/wound cultures ID Consult IV antibiotics - broad spectrum IV ?uids Vasopressors, meds (This form is maintained as a part of the permanent medical record) 2014 [employer]. All Rights Reserved [email or web address] [phone] MTDD
--- NOTE | 2018-08-13 10:34 | EKG ---
Test Reason : SYNCOPE Blood Pressure : / mmHG Vent. Rate : 110 BPM Atrial Rate : 110 BPM P-R Int : 000 ms QRS Dur : 064 ms QT Int : 338 ms P-R-T Axes : 000 051 -87 degrees QTc Int : 457 ms Accelerated Junctional rhythm Low voltage QRS Cannot rule out Anteroseptal infarct , age undetermined Abnormal ECG Confirmed by BETH BELL ([id number]), news videotape editor ISI GARCIA ([id number]) on 08/13/2018 10:34:28 AM Referred By: ARABELLA Confirmed By:BETH BELL
== END 2018-08-07 16:15 | disposition short-term general hospital (02) | DRG 280 ==
LOC: ERS 12:45 → CCU 19:26
PROVIDERS: ADMIT Internal Medicine; ATTEND Internal Medicine
PROC: 5A1D70Z Performance of Urinary Filtration, Intermittent, Less than 6 Hours Per Day (ICD-10-PCS; 2018-08-02)
PROC: 3E033XZ Introduction of Vasopressor into Peripheral Vein, Percutaneous Approach (ICD-10-PCS; 2018-08-03)
PROC: 5A1D70Z Performance of Urinary Filtration, Intermittent, Less than 6 Hours Per Day (ICD-10-PCS; 2018-08-04)
PROC: 5A12012 Performance of Cardiac Output, Single, Manual (ICD-10-PCS; principal; 2018-08-06)
PROC: 5A1D70Z Performance of Urinary Filtration, Intermittent, Less than 6 Hours Per Day (ICD-10-PCS; 2018-08-06)
DX: T82.7XXA Infection and inflammatory reaction due to other cardiac and vascular devices, implants and grafts, initial encounter (principal); A41.9 Sepsis, unspecified organism; I21.4 Non-ST elevation (NSTEMI) myocardial infarction; N18.6 End stage renal disease; I46.9 Cardiac arrest, cause unspecified; R65.21 Severe sepsis with septic shock; I47.2 Ventricular tachycardia; I42.0 Dilated cardiomyopathy; I13.2 Hypertensive heart and chronic kidney disease with heart failure and with stage 5 chronic kidney disease, or end stage renal disease; I50.22 Chronic systolic (congestive) heart failure; I25.10 Atherosclerotic heart disease of native coronary artery without angina pectoris; Z99.2 Dependence on renal dialysis; E10.22 Type 1 diabetes mellitus with diabetic chronic kidney disease; E78.5 Hyperlipidemia, unspecified; I95.9 Hypotension, unspecified; E10.649 Type 1 diabetes mellitus with hypoglycemia without coma; D64.9 Anemia, unspecified; E87.5 Hyperkalemia; I25.5 Ischemic cardiomyopathy; E10.51 Type 1 diabetes mellitus with diabetic peripheral angiopathy without gangrene; K21.0 Gastro-esophageal reflux disease with esophagitis; Z79.82 Long term (current) use of aspirin; Z79.4 Long term (current) use of insulin; Z89.512 Acquired absence of left leg below knee; Z80.9 Family history of malignant neoplasm, unspecified
CPT/HCPCS: 36415; 36416; 36556; 71045; 71275; 80048; 80053; 80061; 80202; 82533; 82553; 82805; 83605; 84484; 85014; 85018; 85025; 85049; 85379; 85610; 85730; 87040; 87324; 87340; 87449; 90935; 93005; 93010; 93306; 93798; 94640; 96361; 96365; 96367; 96374; 96375; 96376; C9113; G0257; J0171; J0282; J1250; J1642; J1644; J1815; J2001; J2405; J2543; J3370; J7050; J7070; J7620; P9047